=== PATIENT | female | born 1985 | race Caucasian/White ===

== ENCOUNTER → 2016-05-10 | Outpatient (REF) | payer BC | LOC: M LAB REF 13:59 | PROVIDERS: ATTEND Advanced Practice Midwife | DX: Z12.4 Encounter for screening for malignant neoplasm of cervix (principal); R87.810 Cervical high risk human papillomavirus (HPV) DNA test positive ==

== ENCOUNTER → 2016-08-03 | Outpatient (CLI) | payer BC ==
--- NOTE | 2016-08-03 08:49 | REP ---
RIGHT LOWER EXTREMITY DUPLEX VENOUS ULTRASOUND: HISTORY: Post laser ablation, question DVT. FINDINGS: The deep veins are anechoic and fully compressible from the groin to the popliteal fossa in the right lower extremity on two-dimensional scanning. Color flow imaging is homogeneous in the deep venous system. Spectral Doppler interrogation demonstrates intact respiratory variation in flow and normal manual augmentation of flow. There is no evidence of DVT. There is occlusive thrombosis, however, of the greater saphenous vein extending distally from 4.5 cm from the saphenofemoral junction into the distal thigh. IMPRESSION: Occlusive thrombosis of the greater saphenous vein. No evidence of deep vein thrombosis in the right lower extremity. Signed by Curtis Juan MD 08/03/2016 10:20 A
== END ==
LOC: M RAD 07:00
PROVIDERS: ATTEND Surgery
DX: Z98.890 Other specified postprocedural states (principal); I82.811 Embolism and thrombosis of superficial veins of right lower extremity

== ENCOUNTER → 2016-12-19 | Outpatient (CLI) | payer BC ==
[2016-12-19 08:36] LABS: ALBUMIN 3.6 GM/DL (3.2-5.2); ALBUMIN/GLOBULIN RATIO 1.16 (1.00-1.93); ALKALINE PHOSPHATASE 36 U/L (45-117); ALT/SGPT 26 U/L (12-78); ANION GAP 4 MEQ/L (8-16); AST/SGOT 20 U/L (15-37); BILIRUBIN,TOTAL 0.3 MG/DL (0.2-1.0); BLOOD UREA NITROGEN 12 MG/DL (7-18); CALCIUM LEVEL 8.5 MG/DL (8.5-10.1); CARBON DIOXIDE LEVEL 32 MEQ/L (21-32); CHLORIDE LEVEL 104 MEQ/L (98-107); CHOLESTEROL LEVEL 158 MG/DL (<200); CREATININE FOR GFR 0.77 MG/DL (0.55-1.02); GLOMERULAR FILTRATION RATE > 60.0 (>60); GLUCOSE, FASTING 81 MG/DL (70-105); POTASSIUM SERUM 4.6 MEQ/L (3.5-5.1); SODIUM LEVEL 140 MEQ/L (136-145); TOTAL PROTEIN 6.7 GM/DL (6.4-8.2); TRIGLYCERIDES LEVEL 32 MG/DL (<150)
== END ==
LOC: M LAB 07:21
PROVIDERS: ATTEND Physician Assistant
DX: E03.9 Hypothyroidism, unspecified (principal); E78.2 Mixed hyperlipidemia

== ENCOUNTER → 2017-02-08 | Outpatient (CLI) | payer BC ==
--- NOTE | 2017-02-08 16:03 | REP ---
Clinical: Pain. Technique: Real time bella scale and color Doppler evaluation using linear high frequency transducer. Findings: Ultrasound examination of the right upper extremity deep venous structures including jugular, subclavian, axillary, brachial, basilic, and cephalic veins demonstrates normal flow characteristics and no evidence for acute thrombus. Incidental note is made of a solitary infraclavicular lymph node measuring 0.6 x 1.7 x 3.5 cm. Overlying the biceps muscle in the region of maximal tenderness, subcutaneous and intramuscular edema is appreciated. The muscular fascicles appear relatively normal and no obvious full-thickness tear or injury is appreciated. Impression: 1. No evidence for deep venous thrombosis. 2. Soft tissue edema. No obvious full thickness muscular or tendinous tear noted. Based on symptoms, MRI may be of value for more definitive evaluation. 3. Solitary infraclavicular lymph node nonspecific in appearance. Signed by Victorino Olsen MD 02/08/2017 03:54 P
[2017-02-08 16:24] LABS: ANION GAP 7 MEQ/L (8-16); BLOOD UREA NITROGEN 10 MG/DL (7-18); CALCIUM LEVEL 9.1 MG/DL (8.5-10.1); CARBON DIOXIDE LEVEL 30 MEQ/L (21-32); CHLORIDE LEVEL 102 MEQ/L (98-107); CREATININE FOR GFR 0.74 MG/DL (0.55-1.02); GLOMERULAR FILTRATION RATE > 60.0 (>60); GLUCOSE, FASTING 73 MG/DL (70-105); SODIUM LEVEL 139 MEQ/L (136-145)
== END ==
LOC: M LAB 14:49
PROVIDERS: ATTEND Physician Assistant Medical
DX: M62.82 Rhabdomyolysis (principal)

== ENCOUNTER → 2017-02-16 | Outpatient (CLI) | payer BC ==
[2017-02-16 13:58] LABS: ANION GAP 7 MEQ/L (8-16); BLOOD UREA NITROGEN 14 MG/DL (7-18); CALCIUM LEVEL 8.7 MG/DL (8.5-10.1); CARBON DIOXIDE LEVEL 29 MEQ/L (21-32); CHLORIDE LEVEL 103 MEQ/L (98-107); CREATININE FOR GFR 0.61 MG/DL (0.55-1.02); GLOMERULAR FILTRATION RATE > 60.0 (>60); GLUCOSE, FASTING 99 MG/DL (70-105); POTASSIUM SERUM 4.2 MEQ/L (3.5-5.1); SODIUM LEVEL 139 MEQ/L (136-145)
== END ==
LOC: M LAB 12:57
PROVIDERS: ATTEND Physician Assistant Medical
DX: M62.82 Rhabdomyolysis (principal)

== ENCOUNTER → 2017-06-07 | Outpatient (REF) | payer BC ==
[2017-06-07 16:44] LABS: BASO % 0.2 % (0.0-1.0); EOS # 0.1 10^3/uL (0.0-0.50); EOS % 0.9 % (0.0-3.0); HEMATOCRIT 37.7 % (36.0-47.0); HEMOGLOBIN 12.6 g/dl (12.0-16.0); IMMATURE GRANULOCYTE % 0.4 % (0-3.0); LYMPH # 1.6 10^3/uL (1.5-4.5); MEAN CORPUSCULAR HEMOGLOBIN 30.5 pg (27.0-33.0); MEAN CORPUSCULAR HGB CONC 33.4 g/dl (32.0-36.5); MEAN CORPUSCULAR VOLUME 91.3 fl (80.0-96.0); MONO # 0.4 10^3/uL (0.0-0.8); MONO % 7.3 % (0.0-5.0); NEUTROPHILS # 3.3 10^3/uL (1.8-7.7); NEUTROPHILS % 61.2 % (36.0-66.0); PLATELET COUNT, AUTOMATED 228 10^3/uL (150-450); RED BLOOD COUNT 4.13 10^6/uL (4.00-5.40); RED CELL DISTRIBUTION WIDTH 11.9 % (11.5-14.5); WHITE BLOOD COUNT 5.4 10^3/uL (4.0-10.0)
[2017-06-07 17:21] LABS: ALBUMIN 3.9 GM/DL (3.2-5.2); ALBUMIN/GLOBULIN RATIO 1.22 (1.00-1.93); ALKALINE PHOSPHATASE 39 U/L (45-117); ALT/SGPT 23 U/L (12-78); ANION GAP 5 MEQ/L (8-16); AST/SGOT 28 U/L (7-37); BILIRUBIN,TOTAL 0.3 MG/DL (0.2-1.0); BLOOD UREA NITROGEN 10 MG/DL (7-18); CALCIUM LEVEL 8.5 MG/DL (8.5-10.1); CARBON DIOXIDE LEVEL 31 MEQ/L (21-32); CHLORIDE LEVEL 104 MEQ/L (98-107); CPK CREATINE PHOSPHOKINASE 542 U/L (26-192); CREATININE FOR GFR 0.75 MG/DL (0.55-1.30); GLOMERULAR FILTRATION RATE > 60.0 (>60); GLUCOSE, FASTING 74 MG/DL (70-100); POTASSIUM SERUM 3.8 MEQ/L (3.5-5.1); SODIUM LEVEL 140 MEQ/L (136-145); TOTAL PROTEIN 7.1 GM/DL (6.4-8.2)
== END ==
LOC: M LAB REF 16:26
DX: M25.50 Pain in unspecified joint (principal)
CPT/HCPCS: 82550

== ENCOUNTER → 2017-07-22 | Outpatient (REF) | payer BC ==
[2017-07-26 14:13] LABS: HPV HYBRID CAPTURE II Positive (Negative)
== END ==
LOC: M LAB REF 13:43
DX: Z12.4 Encounter for screening for malignant neoplasm of cervix (principal)

== ENCOUNTER → 2017-07-26 | Outpatient (CLI) | payer BC ==
[2017-07-26 10:14] LABS: CORTISOL AM 10.8 UG/DL (4.3-22.4)
[2017-07-26 10:16] LABS: PROGESTERONE 0.5 NG/ML
[2017-07-26 10:18] LABS: LUTEINIZING HORMONE 5.7 mIU/mL
[2017-07-26 10:19] LABS: FOLLICLE STIMULATING HORMONE 6.7 mIU/mL
[2017-07-29 00:08] LABS: TESTOSTERONE FREE (DIRECT) 2.3 pg/mL (0.0-4.2)
[2017-07-29 00:08] LABS: ESTROGENS TOTAL 130 pg/mL (.)
== END ==
LOC: M LAB 08:11
DX: L68.0 Hirsutism (principal)
CPT/HCPCS: 83001

== ENCOUNTER → 2017-09-11 | Outpatient (CLI) | payer BC ==
[2017-09-11 08:10] LABS: BASO % 0.5 % (0.0-1.0); EOS # 0.2 10^3/uL (0.0-0.50); HEMATOCRIT 36.5 % (36.0-47.0); HEMOGLOBIN 12.4 g/dl (12.0-15.5); IMMATURE GRANULOCYTE % 0.5 % (0-3.0); LYMPH # 1.2 10^3/uL (1.5-4.5); LYMPH % 28.1 % (24.0-44.0); MEAN CORPUSCULAR HEMOGLOBIN 30.6 pg (27.0-33.0); MEAN CORPUSCULAR VOLUME 90.1 fl (80.0-96.0); MONO # 0.4 10^3/uL (0.0-0.8); NEUTROPHILS # 2.5 10^3/uL (1.8-7.7); NEUTROPHILS % 57.9 % (36.0-66.0); PLATELET COUNT, AUTOMATED 193 10^3/uL (150-450); RED BLOOD COUNT 4.05 10^6/uL (4.00-5.40); RED CELL DISTRIBUTION WIDTH 12.3 % (11.5-14.5); WHITE BLOOD COUNT 4.4 10^3/uL (4.0-10.0)
[2017-09-11 08:34] LABS: ALBUMIN 3.7 GM/DL (3.2-5.2); ALBUMIN/GLOBULIN RATIO 1.16 (1.00-1.93); ALKALINE PHOSPHATASE 40 U/L (45-117); ALT/SGPT 22 U/L (12-78); ANION GAP 6 MEQ/L (8-16); AST/SGOT 17 U/L (7-37); BILIRUBIN,TOTAL 0.4 MG/DL (0.2-1.0); BLOOD UREA NITROGEN 12 MG/DL (7-18); C REACTIVE PROTEIN QUANTITATIV < 0.30 MG/DL (0.00-0.30); CALCIUM LEVEL 8.1 MG/DL (8.5-10.1); CARBON DIOXIDE LEVEL 28 MEQ/L (21-32); CHLORIDE LEVEL 106 MEQ/L (98-107); CPK CREATINE PHOSPHOKINASE 192 U/L (26-192); CREATININE FOR GFR 0.74 MG/DL (0.55-1.30); GLOMERULAR FILTRATION RATE > 60.0 (>60); GLUCOSE, FASTING 84 MG/DL (70-100); POTASSIUM SERUM 4.2 MEQ/L (3.5-5.1); RHEUMATOID FACTOR QUANT < 10.0 IU/ML (<15.0); SODIUM LEVEL 140 MEQ/L (136-145); TOTAL PROTEIN 6.9 GM/DL (6.4-8.2); URIC ACID 3.9 MG/DL (2.6-6.0)
[2017-09-11 09:09] LABS: ERYTHROCYTE SEDIMENTATION RATE 8 mm/hr (0-20)
[2017-09-13 00:09] LABS: ANA (HEP2) Negative (.)
[2017-09-13 00:09] LABS: CYCLIC CITRULLINATED PEPTIDE 7 units (0-19)
== END ==
LOC: M LAB 07:12
DX: M35.01 Sjogren syndrome with keratoconjunctivitis (principal)
CPT/HCPCS: 82550

== ENCOUNTER → 2017-09-18 | Outpatient (CLI) | payer BC | LOC: M RAD 12:23 | DX: S60.052A Contusion of left little finger without damage to nail, initial encounter (principal); X58.XXXA Exposure to other specified factors, initial encounter; Y92.89 Other specified places as the place of occurrence of the external cause; Y99.9 Unspecified external cause status; Y93.9 Activity, unspecified | CPT/HCPCS: 73140 ==

== ENCOUNTER → 2018-04-10 | Outpatient (CLI) | payer BC ==
[2018-04-10 09:41] LABS: FREE T4 0.85 NG/DL (0.76-1.46); THYROID STIMULATING HORMONE 3.1 uIU/ML (0.358-3.740)
[2018-04-10 09:53] LABS: TOTAL 25(OH) VITAMIN D 37.7 NG/ML (30.0-100.0)
== END ==
LOC: M LAB 08:22
PROVIDERS: ATTEND Family Medicine
DX: E03.9 Hypothyroidism, unspecified (principal)

== ENCOUNTER → 2018-06-21 | Outpatient (CLI) | payer BC ==
--- NOTE | 2018-06-21 13:16 | REP ---
Clinical: Left first digit injury Technique: AP, lateral, bilateral oblique views left hand . Findings: The osseous structures and joint spaces are intact and normal. There is no evidence for acute fracture or dislocation. Surrounding soft tissues are unremarkable. No subcutaneous emphysema or radiodense foreign body. Impression: Normal left hand series. No acute fracture or dislocation. Electronically Signed by Victorino Olsen MD 06/21/2018 01:07 P
== END ==
LOC: M RAD 12:37
PROVIDERS: ATTEND Physician Assistant Medical
DX: S69.82XA Other specified injuries of left wrist, hand and finger(s), initial encounter (principal); X58.XXXA Exposure to other specified factors, initial encounter; Y92.89 Other specified places as the place of occurrence of the external cause

== ENCOUNTER → 2018-06-30 | Outpatient (CLI) | payer OTHER, BC ==
--- NOTE | 2018-07-01 14:13 | REP ---
MRI left hand and thumb without contrast: History: Hyperextension injury, First MCP joint. Comparison radiographs June 21, 2018. Comparison radiographs are from June 21, 2018. MR technique. The study was accomplished in two settings with additional views at my request. Initially a MRI study of the left hand was performed as ordered. A dedicated left thumb MRI study was acquired with the after the initial images. Axial, coronal, and sagittal imaging planes utilized. T1 proton density T2-weighted scans are included. MRI findings: Cortical and medullary bone signal intensity is normal. There is no evidence of fracture. There is a small quantity of joint fluid about the first MCP joint. There is complete disruption of the ulnar collateral ligament at the first MCP joint from its distal attachment. The proximal portion of the a bolused ulnar collateral ligament is flipped superficial to the adductor pollicis aponeurosis. This is consistent with the Stener lesion. Extensor and flexor tendons are unremarkable. The radial collateral ligament appears intact. There is some adjacent edema. Impression: Complete disruption of the ulnar collateral ligament at the first MCP joint without evidence of fracture. The proximal portion of the a avulsed ulnar collateral ligament is flipped superficial to the the adductor pollicis aponeurosis consistent with a Stener lesion. Electronically Signed by Curtis Juan MD 07/01/2018 02:05 P
== END ==
LOC: M RAD 18:24
PROVIDERS: ATTEND Physician Assistant
DX: S63.042A Subluxation of carpometacarpal joint of left thumb, initial encounter (principal); Y92.89 Other specified places as the place of occurrence of the external cause; Y93.9 Activity, unspecified; Y99.9 Unspecified external cause status; X58.XXXA Exposure to other specified factors, initial encounter

== ENCOUNTER → 2018-10-03 | Outpatient (REF) | payer BC ==
[2018-10-08 14:07] LABS: HPV HYBRID CAPTURE II Positive (Negative)
== END ==
LOC: M LAB REF 16:19
PROVIDERS: ATTEND Advanced Practice Midwife
DX: Z12.4 Encounter for screening for malignant neoplasm of cervix (principal); R87.612 Low grade squamous intraepithelial lesion on cytologic smear of cervix (LGSIL)
CPT/HCPCS: 87624; G0123

== ENCOUNTER → 2018-10-09 | Outpatient (CLI) | payer BC ==
[2018-10-09 11:51] LABS: FREE T4 1.08 NG/DL (0.76-1.46); THYROID STIMULATING HORMONE 1.57 uIU/ML (0.358-3.740)
[2018-10-11 00:06] LABS: Lyme Disease IgG/IgM Antibodie <0.91 ISR (0.00-0.90); Lyme Disease IgM Ab Quantitati <0.80 index (0.00-0.79)
== END ==
LOC: M LAB 10:38
PROVIDERS: ATTEND Physician Assistant
DX: Z00.01 Encounter for general adult medical examination with abnormal findings (principal); R53.83 Other fatigue

== ENCOUNTER → 2018-11-17 | Outpatient (REF) | payer BC | LOC: M LAB REF 13:03 | PROVIDERS: ATTEND Obstetrics & Gynecology | DX: R87.612 Low grade squamous intraepithelial lesion on cytologic smear of cervix (LGSIL) (principal) ==

== ENCOUNTER → 2019-02-11 | Outpatient (CLI) | payer BC ==
--- NOTE | 2019-02-11 11:24 | REP ---
T-spine series: Four views. History: Pain in the thoracic spine. Pain around the T7-8 region, slightly to the right. Findings: There is straightening of the usual thoracic kyphosis. Thoracic vertebral body heights are preserved. Disc spaces are maintained. Pedicles and posterior elements are intact. No paravertebral soft-tissue mass or swelling is seen. Visualized posterior ribs and the visualized lung aguiar are unremarkable. Swimmer's lateral view shows no additional abnormality. Impression: Straightening otherwise negative thoracic spine radiographs. Electronically Signed by Curtis Juan MD 02/11/2019 11:15 A
== END ==
LOC: M RAD 10:31
PROVIDERS: ATTEND Family Medicine
DX: M54.6 Pain in thoracic spine (principal)

== ENCOUNTER → 2019-11-11 | Outpatient (CLI) | payer BC ==
[2019-11-11 08:52] LABS: BASO % 0.6 % (0.0-1.0); EOS # 0.1 10^3/uL (0.0-0.5); HEMATOCRIT 36.9 % (36.0-47.0); HEMOGLOBIN 12.2 g/dl (12.0-15.5); LYMPH # 1.2 10^3/uL (1.5-5.0); LYMPH % 22.9 % (24.0-44.0); MEAN CORPUSCULAR HEMOGLOBIN 30.5 pg (27.0-33.0); MEAN CORPUSCULAR HGB CONC 33.1 g/dl (32.0-36.5); MEAN CORPUSCULAR VOLUME 92.3 fl (80.0-96.0); MONO # 0.3 10^3/uL (0.0-0.8); NEUTROPHILS # 3.4 10^3/uL (1.5-8.5); NEUTROPHILS % 68.1 % (36.0-66.0); PLATELET COUNT, AUTOMATED 191 10^3/uL (150-450)
[2019-11-11 10:13] LABS: ALBUMIN 3.7 GM/DL (3.2-5.2); ALT/SGPT 17 U/L (12-78); BILIRUBIN,TOTAL 0.5 MG/DL (0.2-1.0); BLOOD UREA NITROGEN 12 MG/DL (7-18); CALCIUM LEVEL 8.8 MG/DL (8.5-10.1); CARBON DIOXIDE LEVEL 30 MEQ/L (21-32); CHLORIDE LEVEL 107 MEQ/L (98-107); CHOLESTEROL LEVEL 163 MG/DL (<200); CHOLESTEROL RISK RATIO 2.507 (<5); CREATININE FOR GFR 0.88 MG/DL (0.55-1.30); FREE T4 0.91 NG/DL (0.76-1.46); GLOMERULAR FILTRATION RATE > 60.0 (>60); GLUCOSE, FASTING 85 MG/DL (70-100); HDL CHOLESTEROL 65 MG/DL (>40); LDL CHOLESTEROL 87 MG/DL (<100); NON-HDL-C 98 MG/DL; POTASSIUM SERUM 4.3 MEQ/L (3.5-5.1); SODIUM LEVEL 140 MEQ/L (136-145); TOTAL PROTEIN 6.8 GM/DL (6.4-8.2); TRIGLYCERIDES LEVEL 56 MG/DL (<150)
== END ==
LOC: M LAB 07:28
PROVIDERS: ATTEND Family Medicine
DX: Z13.0 Encounter for screening for diseases of the blood and blood-forming organs and certain disorders involving the immune mechanism (principal)

== ENCOUNTER → 2019-12-21 | Outpatient (REF) | payer BC | LOC: M SFHCWAGY 19:14 | PROVIDERS: ATTEND Advanced Practice Midwife | DX: Z12.4 Encounter for screening for malignant neoplasm of cervix (principal); R87.610 Atypical squamous cells of undetermined significance on cytologic smear of cervix (ASC-US) | CPT/HCPCS: 87624; G0123 ==

== ENCOUNTER → 2020-01-22 | Outpatient (CLI) | payer BC ==
[2020-01-22 09:10] LABS: FREE T4 0.89 NG/DL (0.76-1.46); THYROID STIMULATING HORMONE 3.32 uIU/ML (0.358-3.740)
== END ==
LOC: M LAB 07:14
PROVIDERS: ATTEND Family Medicine
DX: E03.9 Hypothyroidism, unspecified (principal)

== ENCOUNTER → 2020-02-23 | Outpatient (REF) | LOC: M EMP 10:12 | PROVIDERS: ATTEND Family Medicine | DX: Z20.828 Contact with and (suspected) exposure to other viral communicable diseases (principal) ==

== ENCOUNTER → 2020-04-11 | Outpatient (CLI) | payer BC ==
--- NOTE | 2020-04-12 08:06 | REP ---
INDICATION: PAIN IN THORACIC SPINE. History of exercise injury 3 years ago. COMPARISON: Comparison radiographs February 11, 2019.. TECHNIQUE: Sagittal and axial T1 and T2-weighted scans are acquired in the usual fashion with and without fat saturation. Sequences include spin echo, turbo spin-echo, and STIR imaging sequences. FINDINGS: Thoracic vertebral body heights are preserved. Alignment is normal. Cortical and medullary bone signal intensity are normal. There assay cord is normal in course, caliber, and signal intensity on T1 and T2 weighted scans. There is a small hemangioma in the T1 vertebral body. There is a small central focal disc protrusion at the C7-T1 disc level effacing the ventral subarachnoid space but not visibly contacting the cord. There is a small focal disc protrusion on the right posteriorly at the T11-12 level effacing the ventral subarachnoid space without cord compression. There is minimal disc narrowing at T11-12. No other evidence of degenerative disc disease or disc protrusion is seen. No intraspinal fluid collection or mass lesion is visible. Facet joints are normally aligned. No neural foraminal lesion is appreciated. The visualized posterior ribs are unremarkable. No extra-spinal soft tissue mass is appreciated. IMPRESSION: Small right posterior focal disc protrusion T11. Small central focal disc protrusion C7-T1. Otherwise negative. <Electronically signed by Trevor Juan > 04/12/20 8601
== END ==
LOC: M RAD 16:17
PROVIDERS: ATTEND Family Medicine
DX: M51.24 Other intervertebral disc displacement, thoracic region (principal); M50.23 Other cervical disc displacement, cervicothoracic region

== ENCOUNTER → 2020-04-12 | Outpatient (CLI) | payer BC ==
[2020-04-12 16:00] LABS: FREE T4 0.9 NG/DL (0.76-1.46); THYROID STIMULATING HORMONE 3.93 uIU/ML (0.358-3.740)
== END ==
LOC: M LAB 14:37
PROVIDERS: ATTEND Family Medicine
DX: E03.9 Hypothyroidism, unspecified (principal)

== ENCOUNTER → 2020-07-19 | Outpatient (CLI) | payer BC ==
[2020-07-19 09:43] LABS: FREE T4 0.94 NG/DL (0.76-1.46); THYROID STIMULATING HORMONE 3.82 uIU/ML (0.358-3.740)
== END ==
LOC: M LAB 08:12
PROVIDERS: ATTEND Family Medicine
DX: E03.9 Hypothyroidism, unspecified (principal)

== ENCOUNTER → 2020-09-22 | Outpatient (CLI) | payer BC ==
[2020-09-22 15:42] LABS: FREE T4 0.88 NG/DL (0.76-1.46); THYROID STIMULATING HORMONE 2.22 uIU/ML (0.358-3.740)
== END ==
LOC: M LAB 13:54
PROVIDERS: ATTEND Family Medicine
DX: E03.9 Hypothyroidism, unspecified (principal)

== ENCOUNTER → 2020-11-22 | Outpatient (CLI) | payer BC ==
[2020-11-22 19:28] LABS: BASO % 0.6 % (0.0-1.0); EOS # 0.2 10^3/uL (0.0-0.5); EOS % 2.7 % (0.0-3.0); HEMATOCRIT 40.5 % (36.0-47.0); HEMOGLOBIN 13.2 g/dl (12.0-15.5); LYMPH # 1.4 10^3/uL (1.5-5.0); LYMPH % 20.1 % (24.0-44.0); MEAN CORPUSCULAR HGB CONC 32.6 g/dl (32.0-36.5); MONO # 0.4 10^3/uL (0.0-0.8); MONO % 5.9 % (2.0-8.0); NEUTROPHILS # 4.9 10^3/uL (1.5-8.5); NEUTROPHILS % 70.4 % (36.0-66.0); PLATELET COUNT, AUTOMATED 248 10^3/uL (150-450); WHITE BLOOD COUNT 6.9 10^3/uL (4.0-10.0)
[2020-11-22 20:06] LABS: ALT/SGPT 23 U/L (12-78); BILIRUBIN,TOTAL 0.3 MG/DL (0.2-1.0); BLOOD UREA NITROGEN 14 MG/DL (7-18); CALCIUM LEVEL 8.9 MG/DL (8.5-10.1); CARBON DIOXIDE LEVEL 30 MEQ/L (21-32); CHLORIDE LEVEL 105 MEQ/L (98-107); CHOLESTEROL LEVEL 214 MG/DL (<200); CHOLESTEROL RISK RATIO 2.708 (<5); CREATININE FOR GFR 0.83 MG/DL (0.55-1.30); FREE T4 0.95 NG/DL (0.76-1.46); GLOMERULAR FILTRATION RATE > 60.0 (>60); GLUCOSE, FASTING 81 MG/DL (70-100); HDL CHOLESTEROL 79 MG/DL (>40); LDL CHOLESTEROL 120 MG/DL (<100); NON-HDL-C 135 MG/DL; SODIUM LEVEL 140 MEQ/L (136-145); TOTAL PROTEIN 7.4 GM/DL (6.4-8.2); TRIGLYCERIDES LEVEL 73 MG/DL (<150)
[2020-11-22 20:08] LABS: TOTAL 25(OH) VITAMIN D 29.4 NG/ML (30.0-100.0)
== END ==
LOC: M LAB 17:56
PROVIDERS: ATTEND Family Medicine
DX: E03.9 Hypothyroidism, unspecified (principal); Z13.29 Encounter for screening for other suspected endocrine disorder; Z13.0 Encounter for screening for diseases of the blood and blood-forming organs and certain disorders involving the immune mechanism; Z13.220 Encounter for screening for lipoid disorders

== ENCOUNTER → 2021-01-24 | Outpatient (REF) | payer BC | LOC: M SFHCWAGY 19:05 | PROVIDERS: ATTEND Advanced Practice Midwife | DX: Z12.4 Encounter for screening for malignant neoplasm of cervix (principal) | CPT/HCPCS: 87624; G0123 ==

== ENCOUNTER → 2021-02-01 | Outpatient (CLI) | payer BC ==
[~2021-02-01] MED LIST: LEVO75TA4 PO; LIDOCAINE 1% MDV 20ML VIAL As Ordered ONE; QUERPOW2 XX; VITA-243 PO; VITAMIN D PO; VITMTA PO
--- NOTE | 2021-02-01 12:04 | REP ---
INDICATION: LOCALIZED ENLARGED LYMPH NODE. COMPARISON: None. TECHNIQUE: Real-time sonographic evaluation of inferior right neck soft tissues performed. FINDINGS: At the site of a dominant palpable lump just below the right clavicle there is an oval solid mass which demonstrates hyperemia with Doppler evaluation. It measures 5.0 x 2.1 x 4.0 cm. A smaller soft tissue mass seen in the right supraclavicular soft tissues measuring 1.9 x 1.2 x 2.4 cm. IMPRESSION: Soft tissue mass in the right infraclavicular region as discussed above likely represents adenopathy. A smaller enlarged lymph node is seen in the right supraclavicular region. Recommend ultrasound-guided biopsy. <Electronically signed by Wisam Guidry > 02/01/21 1200
[2021-02-01 15:09] VITALS: BP 131/75
--- NOTE | 2021-02-01 17:17 | REP ---
INDICATION: RIGHT ENLARGED LYMPH NODE. COMPARISON: None. TECHNIQUE: The procedure was performed under the direct supervision of Dr. Guidry. Patient has a history of an oval solid mass just below the right clavicle measuring 5 x 2.1 x 4 cm seen on a previous ultrasound performed earlier today. The risks and benefits of the procedure were explained to the patient and informed consent was obtained. The right subclavicular mass was localized using ultrasound guidance. The skin was prepped and draped in a sterile fashion. 4 mL of 1% lidocaine was used as a local anesthetic. Using ultrasound guidance a 19/20 gauge coaxial needle biopsy system was inserted and advanced into the mass. Eight core biopsy samples were obtained and sent to the lab. The patient tolerated the procedure well and there were no immediate complications. After the appropriate amount to monitor convalescence the patient was discharged from the department. FINDINGS: None IMPRESSION: Ultrasound guidance for right subclavicular mass biopsy. <Electronically signed by Lionel Trujillo > 02/01/21 6225 <Electronically signed by Wisam Guidry > 02/01/21 2395
== END ==
LOC: M IRPRO 11:10 → M LAB 11:10
PROVIDERS: ATTEND Family Medicine
DX: R59.0 Localized enlarged lymph nodes (principal)

== ENCOUNTER → 2021-02-03 | Outpatient (CLI) | payer BC ==
[~2021-02-03] MED LIST changes: -LIDOCAINE 1% MDV 20ML VIAL As Ordered ONE
[2021-02-03 08:52] LABS: FREE T4 1.16 NG/DL (0.76-1.46); THYROID STIMULATING HORMONE 2.9 uIU/ML (0.358-3.740)
== END ==
LOC: M LAB 07:13
PROVIDERS: ATTEND Family Medicine
DX: E03.9 Hypothyroidism, unspecified (principal)

== ENCOUNTER → 2021-02-06 | Outpatient (CLI) | payer BC ==
[2021-02-06 17:30] LABS: BASO % 0.1 % (0.0-1.0); EOS % 0.1 % (0.0-3.0); HEMATOCRIT 39.9 % (36.0-47.0); HEMOGLOBIN 13.2 g/dl (12.0-15.5); LYMPH % 13.4 % (24.0-44.0); MEAN CORPUSCULAR HEMOGLOBIN 30.5 pg (27.0-33.0); MEAN CORPUSCULAR HGB CONC 33.1 g/dl (32.0-36.5); MEAN CORPUSCULAR VOLUME 92.1 fl (80.0-96.0); MONO # 0.3 10^3/uL (0.0-0.8); MONO % 3.5 % (2.0-8.0); NEUTROPHILS # 6.3 10^3/uL (1.5-8.5); NEUTROPHILS % 82.5 % (36.0-66.0); PLATELET COUNT, AUTOMATED 260 10^3/uL (150-450); RED BLOOD COUNT 4.33 10^6/uL (4.00-5.40); WHITE BLOOD COUNT 7.6 10^3/uL (4.0-10.0)
[2021-02-06 18:13] LABS: C REACTIVE PROTEIN QUANTITATIV < 0.30 MG/DL (0.00-0.30); LDH LACTATE DEHYDROGENASE 187 U/L (84-246); RHEUMATOID FACTOR QUANT < 10.0 IU/ML (<15.0); THYROID STIMULATING HORMONE 0.968 uIU/ML (0.358-3.740)
[2021-02-06 18:34] LABS: ERYTHROCYTE SEDIMENTATION RATE 7 mm/hr (0-20)
== END ==
LOC: M LAB 15:47
PROVIDERS: ATTEND Family Medicine
DX: R59.0 Localized enlarged lymph nodes (principal)

== ENCOUNTER 2021-02-27 18:28 | Emergency (ER) | payer BC ==
[~2021-02-27] VITALS: Ht 167.6 cm; Wt 66.1 kg
--- OUTSIDE RECORDS SUMMARY | 2021-02-27 18:35 | CCD | Continuity of Care Document ---
Author Author Adriana FORD Organization Unknown Address [address] [place] [address] Phone [phone] Care Team Providers Care Emergency Planning And Response Manager Name Role Phone Aviva Ford D.O. AUT[facility] [phone] [facility] [phone] Victorino Holder M.D. [facility] [phone] Michael Sanchez MD [facility] [phone] [facility] Rheumatology AUTM [phone] Marshall Barajas MD AUTM [phone] Problems Active Problems Provider Date Hirsutism KAR Sparks Onset: 07/25/2017 Hypothyroidism KAR Sparks Onset: 07/25/2017 Rhabdomyolysis KAR Sparks Onset: 07/25/2017 Social History Type Date Description Comments Sex Unknown ETOH Use Occasionally consumes alcohol Tobacco Use Start: Unknown Patient has never smoked Recreational Drug Use Denies Drug Use Smoking Status Reviewed: 02/06/21 Patient has never smoked Exercise Type/Frequency Exercises regularly 3-5 times a wek Sun Exposure Uses sunscreen Seat Belt/Car Seat Always uses seat belt Allergies and adverse reactions Active Allergies Criticality Reaction | Severity Comments Date NKDA Unable to assess criticality 07/23/2017 Peanut Unable to assess criticality 07/23/2017 Medications Active Medications SIG Qnty Indications Ordering Provide r Date Prednisone 10mg Tablets 4 tablets daily for 5 days then 3 tablets for 3 days then 2 tablets for 2 days then 1 tab daily for 2 days, then stop qs Aviva Ford D.O. 02/09/2021 Amoxicillin/Clavulanate Potassium 875-125mg Tablets 1 by mouth twice a day x 10 days 20tabs R59.0 Ignacio MccainORd 02/06/2021 Ultrasound Guided Biopsy Of Right Enlarged Lymph Nodes Dx: R59 1-6units R59.0 Ignacio MccainORd 02/01/2021 Levothyroxine Sodium 75mcg Tablets take one tablet by mouth daily 90tabs E03.9 Miriam Mccain.ORd 12/01/2020 Naproxen 500mg Tablets take one tab with food twice a day 60tabs Ignacio MccainORd 02/23 Vitamin D3 Ultra Strength 5000Unit Capsules 1 by mouth every day 90caps Miriam Mccain.O. 04/09/2018 Multivitamin Adult Tablets 1 by mouth every day Unknown Immunizations Description No Information Available Vital Signs Date Vital Result Comment 02/14/2021 11:48am BP Systolic 110 mmHg BP Diastolic 62 mmHg Height 65.10 inches 5'5.10" Weight 138.00 lb BMI (Body Mass Index) 22.9 kg/m2 Heart Rate 55 /min Respiratory Rate 16 /min Body Temperature 97.8 F O2 % BldC Oximetry 99 % [place] Body Weight 125 lb 02/06/2021 2:58pm BP Systolic 110 mmHg BP Diastolic 64 mmHg Height 65.10 inches 5'5.10" Weight 140.12 lb BMI (Body Mass Index) 23.2 kg/m2 Heart Rate 62 /min Respiratory Rate 14 /min Body Temperature 98.5 F O2 % BldC Oximetry 98 % [place] Body Weight 125 lb Results Test Acquired Date Facility Test Result H/L Range Note CBC With Differential 02/06/[address] [address] [phone] White Blood Count 7.6 10 Normal 4.0-10.0 Red Blood Count 4.33 10 Normal 4.00-5.40 Hemoglobin 13.2 g/dL Normal 12.0-15.5 Hematocrit 39.9 % Normal 36.0-47.0 Mean Corpuscular Volume 92.1 fl Normal 80.0-96.0 Mean Corpuscular Hemoglobin 30.5 pg Normal 27.0-33.0 Mean Corpuscular HGB Conc 33.1 g/dL Normal 32.0-36.5 Red Cell Distribution Width 11.9 % Normal 11.5-14.5 Platelet Count, Automated 260 10 Normal 150-450 Neutrophils % 82.5 % High 36.0-66.0 Lymph % 13.4 % Low 24.0-44.0 Rice % 3.5 % Normal 2.0-8.0 Eos % 0.1 % Normal 0.0-3.0 Baso % 0.1 % Normal 0.0-1.0 Immature Granulocyte % 0.4 % Normal 0-3.0 Nucleated Red Blood Cell % 0.0 % Normal 0-0 Neutrophils # 6.3 10 Normal 1.5-8.5 Lymph # 1.0 10 Low 1.5-5.0 Rice # 0.3 10 Normal 0.0-0.8 Eos # 0.0 10 Normal 0.0-0.5 Baso # 0.0 10 Normal 0.0-0.2 Laboratory test finding 02/06/[address] [address] [phone] C Reactive Protein Quantitativ < 0.30 mg/dL Normal 0.00-0.30 Erythrocyte Sedimentation Rate 7 mm/hr Normal 0-20 LDH Lactate Dehydrogenase 187 U/L Normal 84-246 Lyme Disease SCRN With Confirm 02/06/[address] [address] [phone] Lyme Disease IgG/IgM Antibodie <0.91 ISR Normal 0 .00-0.90 1 Lyme Disease IgM Ab Quantitati <0.80 index Normal 0.00-0.79 2 FT4&TSH Panel 02/06/2021 [facility] [address] [place] [address] [phone] Thyroid Stimulating Hormone 0.968 uIU/ML Normal 0. 358-3.740 Free T4 1.10 ng/dL Normal 0.76-1.46 Laboratory test finding 02/06/[address] [address] [phone] Rheumatoid Factor Quant < 10.0 IU/mL Normal <15.0 Cyclic Citrullinated Peptide 6 units Normal 0-19 3 Antinuclear Antibodies 02/06/[address] [address] [phone] Antinuclear Antibodies Direct Positive Abnormal Ne gative Anti Double Strand-Dna AB 3 IU/mL Normal 0-9 4 VP ANALYSIS Antibodies <0.2 AI Normal 0.0-0.9 Trujillo Antibodies <0.2 AI Normal 0.0-0.9 Sjogren's Anti SS-A 6.4 AI High 0.0-0.9 Sjogren's Anti SS-B 0.2 AI Normal 0.0-0.9 Grant Comment (SEE NOTE) Normal . 5 Laboratory test finding 02/06/[address] [address] [phone] CPK Creatine Phosphokinase 393 U/L High 26-19 2 FT4&TSH Panel 02/03/2021 [facility] [address] [place] [address] [phone] Thyroid Stimulating Hormone 2.900 uIU/ML Normal 0. 358-3.740 Free T4 1.16 ng/dL Normal 0.76-1.46 Laboratory test finding 02/01/2021 [facility] Outpatient T yousifing (Registration) [address] [place] [address] [phone] Pathology Request For Service (SEE NOTE) 6 FT4&TSH Panel 11/22/2020 [facility] [address] [place] [address] [phone] Thyroid Stimulating Hormone 4.350 uIU/ML High 0. 358-3.740 Free T4 0.95 ng/dL Normal 0.76-1.46 Comprehensive Metabolic Profil 11/22/[address] [address] [phone] Glucose, Fasting 81 mg/dL Normal 70-100 Blood Urea Nitrogen 14 mg/dL Normal 7-18 Creatinine For GFR 0.83 mg/dL Normal 0.55-1.30 Glomerular Filtration Rate > 60.0 Normal >60 7 Sodium Level 140 mEq/L Normal 136-145 Potassium Serum 4.0 mEq/L Normal 3.5-5.1 Chloride Level 105 mEq/L Normal 98-107 Carbon Dioxide Level 30 mEq/L Normal 21-32 Anion Gap 5 mEq/L Low 8-16 Calcium Level 8.9 mg/dL Normal 8.5-10.1 Ast/Sgot 15 U/L Normal 7-37 Alt/SGPT 23 U/L Normal 12-78 Alkaline Phosphatase 51 U/L Normal 45-117 Bilirubin,Total 0.3 mg/dL Normal 0.2-1.0 Total Protein 7.4 GM/DL Normal 6.4-8.2 Albumin 4.0 GM/DL Normal 3.2-5.2 Albumin/Globulin Ratio 1.2 Normal 1.2-2.2 CBC With Differential 11/22/[address] [id number] [phone] White Blood Count 6.9 10 Normal 4.0-10.0 Red Blood Count 4.40 10 Normal 4.00-5.40 Hemoglobin 13.2 g/dL Normal 12.0-15.5 Hematocrit 40.5 % Normal 36.0-47.0 Mean Corpuscular Volume 92.0 fl Normal 80.0-96.0 Mean Corpuscular Hemoglobin 30.0 pg Normal 27.0-33.0 Mean Corpuscular HGB Conc 32.6 g/dL Normal 32.0-36.5 Red Cell Distribution Width 12.2 % Normal 11.5-14.5 Platelet Count, Automated 248 10 Normal 150-450 Neutrophils % 70.4 % High 36.0-66.0 Lymph % 20.1 % Low 24.0-44.0 Rice % 5.9 % Normal 2.0-8.0 Eos % 2.7 % Normal 0.0-3.0 Baso % 0.6 % Normal 0.0-1.0 Immature Granulocyte % 0.3 % Normal 0-3.0 Nucleated Red Blood Cell % 0.0 % Normal 0-0 Neutrophils # 4.9 10 Normal 1.5-8.5 Lymph # 1.4 10 Low 1.5-5.0 Rice # 0.4 10 Normal 0.0-0.8 Eos # 0.2 10 Normal 0.0-0.5 Baso # 0.0 10 Normal 0.0-0.2 Lipid Panel 11/22/2020 [facility] [address] [place] [address] [phone] Triglycerides Level 73 mg/dL Normal <150 Cholesterol Level 214 mg/dL High <200 HDL Cholesterol 79 mg/dL Normal >40 LDL Cholesterol 120 mg/dL High <100 Non-HDL-C 135 mg/dL Normal Cholesterol Risk Ratio 2.708 Normal <5 Laboratory test finding 11/22/2020 [facility] [address] [place] [address] [phone] Total 25(Oh) Vitamin D 29.4 NG/ML Low 30.0-100. 0 FT4&TSH [facility] [address] [place] [address] [phone] Thyroid Stimulating Hormone 2.220 uIU/ML Normal 0. 358-3.740 Free T4 0.88 ng/dL Normal 0.76-1.46 1 Negative <0.91 Equivocal 0.91 - 1.09 Positive >1.09 2 Negative <0.80 Equivocal 0.80 - 1.19 Positive >1.19 . IgM levels may peak at 3-6 weeks post infection, then gradually decline. 3 Negative <20 Weak positive 20 - 39 Moderate positive 40 - 59 Strong positive >59 4 Negative <5 Equivocal 5 - 9 Positive >9 5 . Autoantibody Disease Association Condition Frequency -------- --------- Antinuclear Antibody, SLE, mixed connective Direct (GRANT-D) tissue diseases -------- --------- dsDNA SLE 40 - 60% -------- --------- Chromatin Drug induced SLE 90% SLE 48 - 97% -------- --------- SSA (Ro) SLE 25 - 35% Sjogren's Syndrome 40 - 70% Lupus 100% -------- --------- SSB (La) SLE 10% Sjogren's Syndrome 30% ------- --------- Sm (anti-Trujillo) SLE 15 - 30% ------- --------- VP ANALYSIS Mixed Connective Tissue Disease 95% (U1 nRNP, SLE 30 - 50% anti-ribonucleoprotein) Polymyositis and/or Dermatomyositis 20% -------- --------- Scl-70 (antiDNA Scleroderma (diffuse) 20 - 35% topoisomerase) Crest 13% -------- --------- Hanna-1 Polymyositis and/or Dermatomyositis 20 - 40% -------- --------- Centromere B Scleroderma - Crest variant 80% Performed at: - [facility] [address] [id number] [employer] Supervisor: Torie Bobo MD, Phone: [phone] Performed at: - [facility] [address] [id number] [employer] Supervisor: Vladimir Carrera MD, Phone: [phone] FINAL DIAGNOSIS Lymph node, right subclavicular, needle core biopsy: B-cell hyperplasia, and no evidence of lymphoma. Reactive lymphoid subsets noted in flow cytometry. No immunophenotypic evidence of non-Hodgkin lymphoma. Excisional biopsy could be helpful if lymphadenopathy persists. 02/08/2021813 CLINICAL DIAGNOSIS Right chest enlarged lymph node 02/02/20211336 GROSS DIAGNOSIS Received in formalin labeled "right subclavian lymph node biopsy" and consists of multiple barton-white needle core shaped fragments measuring 1.2 x 0.3 x 0.1 cm. in aggregate. All in one. Additional tissue received in RPMI. -SV 02/02/20211336 PRELIMINARY DIAGNOSIS 02/06/2021819 Signed ALEXANDER CHAVARRIA MD 02/03/2021 1230 (Prelim) Signed ALEXANDER CHAVARRIA MD 02/08/2021813 7 Units are mL/min/1.73 m2 Chronic Kidney Disease Staging per NKF: Stage I & II GFR >=60 Normal to Mildly Decreased Stage III GFR 30-59 Moderately Decreased Stage IV GFR 15-29 Severely Decreased Stage V GFR <15 Very Little GFR Left ESRD GFR <15 on [employer] Procedures Date Code Description Status 02/14/2021 40627 Office/Outpatient Established Lo w MDM 20-29 Min Completed 02/06/2021 88331 Office/Outpatient Established Mo d MDM 30-39 Min Completed 12/01/2020 58701 Preventive Visit Est 18-39 Yrs C ompleted 09/27/2020 23681 Office/Outpatient Established Mo d MDM 30-39 Min Completed Medical Devices Description No Information Available Encounters Type Date Location Provider Dx Diagnosis Office Visit 02/14/2021 11:40a [facility] Lauri Ford D.O. R59.0 Localized enlarged lymph nod es M35.00 Sjogren syndrome, unspecifie d M05.70 Rheu arthritis w rheu factor of [facility] w/o org/sys involv Office Visit 02/06/2021 3:00p [facility] Aviva Ford D.O. R59.0 Localized enlarged lymph nod es Office Visit 12/01/2020 3:00p [facility] Ignacio MccainO. Z00.00 Encntr for general adult med ical exam w/o abnormal findings M35.00 Sicca syndrome, unspecified M05.70 Rheu arthritis w rheu factor [facility] w/o org/sys involv E03.9 Hypothyroidism, unspecified Office Visit 09/27/2020 3:40p [facility] Aviva Ford D.O. 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 02/14/2021 M05.70 Rheumatoid arthritis with rheumatoid factor of unspecified site without organ or systems involvement Aviva Ford D.O. 02/06/2021 R59.0 Localized enlarged lymph nodes Kodi Ford D.O. 12/01/2020 Z00.00 Encounter for genera l adult medical examination without abnormal findings Aviva Ford D.O. 12/01/2020 M35.00 Sicca syndrome, unspecified Aviva Ford D.O. 12/01/2020 M05.70 Rheumatoid arthritis with rheumatoid factor of unspecified site without organ or systems involvement Aviva Ford D.O. 12/01/2020 E03.9 Hypothyroidism, unspecified Aviva Ford D.O. 09/27/2020 E03.9 Hypothyroidism, unspecified Ignacio MccainORd 09/27/2020 M51.24 Other intervertebral disc displa cement, thoracic region Aviva Ford D.O. 09/27/2020 Z79.899 Other buttermaker (current) drug t herapy Aviva Ford D.O. 09/27/2020 Z13.29 Encounter for screen ing for other suspected endocrine disorder Aviva Ford D.O. 09/27/2020 Z13.0 Encounter for screen ing for diseases of the blood and blood- forming organs and certain disorders involving the immune mechanism Aviva Ford D.O. 09/27/2020 Z13.220 Encounter for screening for lipo id disorders Aviva Fernandes D.O. Plan of Treatment Future Appointment(s):* 12/05/2021 2:00 pm - Aviva Ford D.O. at [facility] Functional Status Description No Information Available Mental Status Description No Information Available Referrals Refer to Reason for Referral Status Appt Date Marshall Barajas MD This is a 35 year old female with previous history of unclassified autoimmune disorder. She has a positive GRANT and sjogren's. She has not followed with rheumatology in years but will be re-establishing soon. She has lymphadenopathy on the right neck, axilla and chest. Biopsy done in radiology shows reactive node but they suggest excisional biopsy of one of the nodes. Please evaluate and treat. In the meantime, I am treating with augmentin and will start prednisone today. Sent [address] [id number] [phone] [facility] Rheumatology This is a 35 year old female who previously followed with Dr. Quintero and has not been taking medication for years for Rheumatoid Arthritis and Sjogren's. Please evaluate and treat. Majority of her pain is in her knees. Sent [id number] [address] [phone]
--- OUTSIDE RECORDS SUMMARY | 2021-02-27 18:35 | CCD | Continuity of Care Document ---
Author Author Adriana FORD Organization Unknown Address [address] [place] [address] Phone [phone] Care Team Providers Care Jewelsmith Name Role Phone Aviva Ford D.O. AUTM [facility] AUTM [phone] Victorino Holder M.D. AUTM [phone] Michael Sanchez MD AUTM [phone] [facility] Rheumatology AUTM [phone] Problems Active Problems Provider Date Hirsutism KAR [...] SIG Qnty Indications Ordering Provide r Date Amoxicillin/Clavulanate Potassium 875-125mg Tablets 1 by mouth twice a day x 10 days 20tabs R59.0 Aviva Ford D.O. 02/06/2021 Ultrasound Guided Biopsy Of Right Enlarged Lymph Nodes Dx: R59 1-6units R59.0 Ignacio MccainORd 02/01/2021 Levothyroxine Sodium 75mcg Tablets take one tablet by mouth daily 90tabs E03.9 Miriam Mccain.O. 12/01/2020 Naproxen 500mg Tablets take one tab with food twice a day 60tabs Ignacio MccainORd 02/23 Vitamin D3 Ultra Strength 5000Unit Capsules 1 by mouth every day 90caps Miriam Mccain.O. 04/09/2018 Multivitamin Adult Tablets 1 by mouth every day Unknown Immunizations Description No Information Available Vital Signs Date Vital Result Comment 02/06/2021 2:58pm BP Systolic 110 mmHg BP Diastolic 64 mmHg Height 65.10 inches 5'5.10" Weight 140.12 lb BMI (Body Mass Index) 23.2 kg/m2 Heart Rate 62 /min Respiratory Rate 14 /min Body Temperature 98.5 F O2 % BldC Oximetry 98 % [place] Body Weight 125 lb 12/01/2020 2:55pm BP Systolic 118 mmHg BP Diastolic 72 mmHg Height 65.10 inches 5'5.10" Weight 140.25 lb BMI (Body Mass Index) 23.3 kg/m2 Heart Rate 86 /min Respiratory Rate 18 /min Body Temperature 99.1 F O2 % BldC Oximetry 98 % [place] Body Weight 125 lb Results Test Acquired Date Facility Test Result H/L Range Note CBC With Differential 02/06/2021 [place] [id number] [phone] White Blood Count 7.6 10 Normal 4.0-10.0 [...] 36.0-66.0 Lymph % 13.4 % Low 24.0-44.0 [place] % 3.5 % Normal 2.0-8.0 Eos % 0.1 % Normal 0.0-3.0 Baso % 0.1 % Normal 0.0-1.0 Immature Granulocyte % 0.4 % Normal 0-3.0 Nucleated Red Blood Cell % 0.0 % Normal 0-0 Neutrophils # 6.3 10 Normal 1.5-8.5 Lymph # 1.0 10 Low 1.5-5.0 [place] # 0.3 10 Normal 0.0-0.8 Eos # 0.0 10 Normal 0.0-0.5 Baso # 0.0 10 Normal 0.0-0.2 Laboratory test finding 02/06/[address] [address] [phone] C Reactive Protein Quantitativ < 0.30 mg/dL Normal 0.00-0.30 Erythrocyte Sedimentation Rate 7 mm/hr Normal 0-20 LDH Lactate Dehydrogenase 187 U/L Normal 84-246 FT4&TSH Panel 02/06/2021 [facility] [address] [place] [address] [phone] Thyroid Stimulating Hormone 0.968 uIU/ML Normal 0. 358-3.740 Free T4 1.10 ng/dL Normal 0.76-1.46 Laboratory test finding 02/06/[address] [address] [phone] Rheumatoid Factor Quant < 10.0 IU/mL Normal <15.0 Cyclic Citrullinated Peptide Igg <pending> Laboratory test finding 02/06/[address] [address] [phone] CPK Creatine Phosphokinase 393 U/L High 26-19 2 FT4&TSH Panel 02/03/2021 [facility] system nter [address] [place] [address] [phone] Thyroid Stimulating Hormone 2.900 uIU/ML Normal 0. 358-3.740 Free T4 1.16 ng/dL Normal 0.76-1.46 FT4&TSH Panel 11/22/2020 health system nter [address] [place] [address] [phone] Thyroid Stimulating Hormone 4.350 uIU/ML High 0. 358-3.740 Free T4 0.95 ng/dL Normal 0.76-1.46 Comprehensive Metabolic Profil 11/22/[address] [address] [phone] Glucose, Fasting 81 mg/dL Normal 70-100 Blood Urea Nitrogen 14 mg/dL Normal 7-18 Creatinine For GFR 0.83 mg/dL Normal 0.55-1.30 Glomerular Filtration Rate > 60.0 Normal >60 1 Sodium Level 140 mEq/L Normal 136-145 Potassium [...] 1.2 Normal 1.2-2.2 CBC With Differential 11/22/[address] [address] [phone] White Blood Count 6.9 10 Normal 4.0-10.0 [...] 36.0-66.0 Lymph % 20.1 % Low 24.0-44.0 [place] % 5.9 % Normal 2.0-8.0 Eos % 2.7 % Normal 0.0-3.0 Baso % 0.6 % Normal 0.0-1.0 Immature Granulocyte % 0.3 % Normal 0-3.0 Nucleated Red Blood Cell % 0.0 % Normal 0-0 Neutrophils # 4.9 10 Normal 1.5-8.5 Lymph # 1.4 10 Low 1.5-5.0 [place] # 0.4 10 Normal 0.0-0.8 Eos # 0.2 10 Normal 0.0-0.5 Baso # 0.0 10 Normal 0.0-0.2 Lipid Panel 11/22/[address] [address] [phone] Triglycerides Level 73 mg/dL Normal <150 Cholesterol Level 214 mg/dL High <200 HDL Cholesterol 79 mg/dL Normal >40 LDL Cholesterol 120 mg/dL High <100 Non-HDL-C 135 mg/dL Normal Cholesterol Risk Ratio 2.708 Normal <5 Laboratory test finding 11/22/[address] [address] [phone] Total 25(Oh) Vitamin D 29.4 NG/ML Low 30.0-100. 0 FT4&TSH Panel 09/22/[address] [address] [phone] Thyroid Stimulating Hormone 2.220 uIU/ML Normal 0. 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 R59.0 Localized enlarged lymph nod es Office Visit 12/01/2020 3:00p [facility] Lauri Ford D.O. Z00.00 Encntr for general adult med ical exam w/o abnormal findings M35.00 Sicca syndrome, unspecified M05.70 Rheu arthritis w rheu factor of [facility] w/o org/sys involv E03.9 Hypothyroidism, unspecified Office Visit 09/27/2020 3:40p [facility] Lauri Ford D.O. E03.9 Hypothyroidism, unspecified M51.24 Other intervertebral disc di splacement, thoracic region Z79.899 Other half-way (current) dr johnson therapy Z13.29 Encounter for screening for oth suspected endocrine disorder Z13.0 Encntr screen for dis of the bld/bld-form org/immun mechnsm Z13.220 Encounter for screening for lipoid disorders Assessments Date Code Description Provider 02/06/2021 R59.0 Localized enlarged lymph nodes Kodi Ford D.O. 12/01/2020 Z00.00 Encounter for genera l adult medical examination without abnormal findings Aviva Ford D.O. 12/01/2020 M35.00 Sicca syndrome, unspecified Ignacio MccainORd 12/01/2020 M05.70 Rheumatoid arthritis with rheumatoid factor of unspecified site without organ or systems involvement Aviva Ford D.O. 12/01/2020 E03.9 Hypothyroidism, unspecified Miriam Mccain.ORd 09/27/2020 E03.9 Hypothyroidism, unspecified Ignacio MccainOdR 09/27/2020 M51.24 Other intervertebral disc displa cement, thoracic region Aviva Ford D.O. 09/27/2020 Z79.899 Other half-way (current) drug t herapy Aviva Ford D.O. 09/27/2020 Z13.29 Encounter for screen ing for other suspected endocrine disorder Aviva Ford D.O. 09/27/2020 Z13.0 Encounter for screen ing for diseases of the blood and blood- forming organs and certain disorders involving the immune mechanism Aviva Ford D.O. 09/27/2020 Z13.220 Encounter for screening for lipo id disorders Aviva Fernandes D.O. Plan of Treatment Future Appointment(s):* 02/14/2021 11:40 am - Aviva Ford D.O. at [facility] * 12/05/2021 2:00 pm - Aviva Ford D.O. at [facility] 02/06/2021 - Aviva Ford D.O.* R59.0 Localized enlarged lymph nodes* New Medication:* Amoxicillin/Clavulanate Potassium 875-125 mg - 1 by mouth twice a day x 10 days * Comments:* I will start augmentin for broad spectrum infectious coverage. She had started prednisone that she had at home in case this was autoimmune and I have counseled her to stop that. I will obtain labs. We have preliminary flow ctymetry which shows reactive node. Full report pending. Functional Status Description No Information Available Mental Status Description No Information Available Referrals Refer to Reason for Referral Status Appt Date [facility] Rheumatology This is a 35 year old female who previously followed with Dr. Quintero and has not been taking medication for years for Rheumatoid Arthritis and Sjogren's. Please evaluate and treat. Majority of her pain is in her knees. Sent [address] [facility] [address] [place] [address] [phone]
--- OUTSIDE RECORDS SUMMARY | 2021-02-27 18:35 | CCD | Continuity of Care Document ---
Author Author Adriana FORD Organization Unknown Address [address] [place] [address] Phone [phone] Care Team Providers Care Owner Operator Tanker Truck Driver Name Role Phone Aviva Ford D.O. AUTM [facility] AUTM [phone] Victorino Holder M.D. AUTM [phone] Michael Sanchez MD AUTM [phone] [facility] Rheumatology AUTM [phone] Marshall Barajas MD AUTM [phone] Problems Active Problems Provider Date Hirsutism KAR [...] tab with food twice a day 60tabs Ingacio MccainORd 02/23 Vitamin D3 Ultra Strength 5000Unit [...] F O2 % BldC Oximetry 98 % [place] Body Weight 125 lb 12/01/2020 2:55pm BP Systolic 118 mmHg BP Diastolic 72 mmHg Height 65.10 inches 5'5.10" Weight 140.25 lb BMI (Body Mass Index) 23.3 kg/m2 Heart Rate 86 /min Respiratory Rate 18 /min Body Temperature 99.1 F O2 % BldC Oximetry 98 % [place] Body Weight 125 lb Results Test Acquired Date Facility Test Result H/L Range Note CBC With Differential 02/06/[address] [address] [phone] White Blood Count 7.6 10 Normal 4.0-10.0 [...] 36.0-66.0 Lymph % 13.4 % Low 24.0-44.0 [place] % 3.5 % Normal 2.0-8.0 Eos % 0.1 % Normal 0.0-3.0 Baso % 0.1 % Normal 0.0-1.0 Immature Granulocyte % 0.4 % Normal 0-3.0 Nucleated Red Blood Cell % 0.0 % Normal 0-0 Neutrophils # 6.3 10 Normal 1.5-8.5 Lymph # 1.0 10 Low 1.5-5.0 [place] # 0.3 10 Normal 0.0-0.8 Eos # 0.0 10 Normal 0.0-0.5 Baso # 0.0 10 Normal 0.0-0.2 Laboratory test finding 02/06/[address] [address] [phone] C Reactive Protein Quantitativ < 0.30 mg/dL Normal 0.00-0.30 Erythrocyte Sedimentation Rate 7 mm/hr Normal 0-20 LDH Lactate Dehydrogenase 187 U/L Normal 84-246 Lyme Disease SCRN With Confirm 02/06/[address] [address] [phone] Lyme Disease IgG/IgM Antibodie <0.91 ISR Normal 0 .00-0.90 1 Lyme Disease IgM Ab Quantitati <0.80 index Normal 0.00-0.79 2 FT4&TSH Panel 02/06/2021 [facility] [address] [place] [address] [phone] Thyroid Stimulating Hormone 0.968 uIU/ML Normal 0. 358-3.740 Free T4 1.10 ng/dL Normal 0.76-1.46 Laboratory test finding 02/06/[address] [address] [phone] Rheumatoid Factor Quant < 10.0 IU/mL Normal <15.0 Cyclic Citrullinated Peptide 6 units Normal 0-19 3 Antinuclear Antibodies 02/06/[address] [address] [phone] Antinuclear Antibodies Direct Positive Abnormal Ne gative Anti Double Strand-Dna AB 3 IU/mL Normal 0-9 4 FARM CREW LEADER Antibodies <0.2 AI Normal 0.0-0.9 [place] Antibodies <0.2 AI Normal 0.0-0.9 Sjogren's Anti SS-A 6.4 AI High 0.0-0.9 Sjogren's Anti SS-B 0.2 AI Normal 0.0-0.9 [place] Comment (SEE NOTE) Normal . 5 Laboratory test finding 02/06/[address] [address] [phone] CPK Creatine Phosphokinase 393 U/L High 26-19 2 FT4&TSH Panel 02/03/2021 [facility] [address] [place] [address] [phone] Thyroid Stimulating Hormone 2.900 uIU/ML Normal 0. 358-3.740 Free T4 1.16 ng/dL Normal 0.76-1.46 Laboratory test finding 02/01/2021 [facility] Outpatient T yousifing (Registration) [address] [place] [address] [phone] Pathology Request For Service (SEE NOTE) 6 FT4&TSH Panel 11/22/2020 [facility] [address] [place] [address] [phone] Thyroid Stimulating Hormone 4.350 uIU/ML High 0. 358-3.740 Free T4 0.95 ng/dL Normal 0.76-1.46 Comprehensive Metabolic Profil 11/22/[address] [address] [phone] Glucose, Fasting 81 mg/dL Normal 70-100 Blood [...] 1.2 Normal 1.2-2.2 CBC With Differential 11/22/[address] [phone] White Blood Count 6.9 10 Normal 4.0-10.0 [...] 36.0-66.0 Lymph % 20.1 % Low 24.0-44.0 [place] % 5.9 % Normal 2.0-8.0 Eos % 2.7 % Normal 0.0-3.0 Baso % 0.6 % Normal 0.0-1.0 Immature Granulocyte % 0.3 % Normal 0-3.0 Nucleated Red Blood Cell % 0.0 % Normal 0-0 Neutrophils # 4.9 10 Normal 1.5-8.5 Lymph # 1.4 10 Low 1.5-5.0 [place] # 0.4 10 Normal 0.0-0.8 Eos # 0.2 10 Normal 0.0-0.5 Baso # 0.0 10 Normal 0.0-0.2 Lipid Panel 11/22/2020 [facility] [address] [place] [address] [phone] Triglycerides Level 73 mg/dL Normal <150 Cholesterol Level 214 mg/dL High <200 HDL Cholesterol 79 mg/dL Normal >40 LDL Cholesterol 120 mg/dL High <100 Non-HDL-C 135 mg/dL Normal Cholesterol Risk Ratio 2.708 Normal <5 Laboratory test finding 11/22/2020 [facility] [address] [place] [address] [phone] Total 25(Oh) Vitamin D 29.4 NG/ML Low 30.0-100. 0 FT4&TSH [facility]22/2020 [facility] [address] [place] [address] [phone] Thyroid Stimulating Hormone 2.220 uIU/ML Normal 0. [...] (anti-[place]) SLE 15 - 30% ------- --------- FARM CREW LEADER Mixed Connective Tissue Disease 95% (U1 nRNP, SLE 30 - 50% anti-ribonucleoprotein) Polymyositis and/or Dermatomyositis 20% -------- --------- Scl-70 (antiDNA Scleroderma (diffuse) 20 - 35% topoisomerase) Crest 13% -------- --------- Hanna-1 Polymyositis and/or Dermatomyositis 20 - 40% -------- --------- Centromere B Scleroderma - Crest variant 80% Performed at: - [facility] [address] [id number] Line Lead: Torie Bobo MD, Phone: [phone] Performed at: - [facility] [address] [id number] Line Lead: Vladimir Carrera MD, Phone: [phone] FINAL DIAGNOSIS Lymph node, right subclavicular, [...] Little GFR Left ESRD GFR <15 on POLICEMAN Procedures Date Code Description Status 02/06/2021 35300 Office/Outpatient Established Mo d MDM 30-39 Min Completed 12/01/2020 03268 Preventive Visit Est 18-39 Yrs C ompleted 09/27/2020 47037 Office/Outpatient Established Mo d MDM 30-39 Min Completed Medical Devices Description No Information Available Encounters Type Date Location Provider Dx Diagnosis Office Visit 02/06/2021 3:00p [facility] Aviva Ford D.O. R59.0 Localized enlarged lymph nod es Office Visit 12/01/2020 3:00p [facility] Lauri Ford D.O. Z00.00 Encntr for general adult med ical exam w/o abnormal findings M35.00 Sicca syndrome, unspecified M05.70 Rheu arthritis w rheu factor of [facility] site w/o org/sys involv E03.9 Hypothyroidism, unspecified Office Visit 09/27/2020 3:40p [facility] Aviva Ford D.O. 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 [...] 11:40 am - Aviva Ford D.O. at [facility] * 12/05/2021 2:00 pm - Aviva Ford D.O. at [facility] 02/06/2021 - Aviva oFrd D.O.* R59.0 Localized enlarged lymph nodes* New [...] Description No Information Available Referrals Refer to Dr Reason for Referral Status Appt Date Marshall [...] and will start prednisone today. Sent [address] [place] [address] [phone] [facility] Rheumatology This is a 35 year old female who previously followed with Dr. Quintero and has not been taking medication for years for Rheumatoid Arthritis and Sjogren's. Please evaluate and treat. Majority of her pain is in her knees. Sent [id number] [place] [id number] [phone]
--- OUTSIDE RECORDS SUMMARY | 2021-02-27 18:35 | CCD | Continuity of Care Document ---
Author Author Adriana FORD Organization Unknown Address [address] [place] [address] Phone [phone] Care Team Providers Care Benefits Coordinator Name Role Phone Aviva Ford D.O. AUTM [facility] AUTM [phone] Victorino Holder M.D. AUTM [phone] Michael Sanchez MD AUTM [phone] [facility] Rheumatology AUTM [phone] Problems Active Problems Provider Date Hirsutism KAR [...] F O2 % BldC Oximetry 98 % [place] Body Weight 125 lb 12/01/2020 2:55pm BP Systolic 118 mmHg BP Diastolic 72 mmHg Height 65.10 inches 5'5.10" Weight 140.25 lb BMI (Body Mass Index) 23.3 kg/m2 Heart Rate 86 /min Respiratory Rate 18 /min Body Temperature 99.1 F O2 % BldC Oximetry 98 % [place] Body Weight 125 lb Results Test Acquired Date Facility Test Result H/L Range Note CBC With Differential 02/06/2021 [place] [id number] [phone] White Blood Count 7.6 10 Normal 4.0-10.0 [...] 36.0-66.0 Lymph % 13.4 % Low 24.0-44.0 [place] % 3.5 % Normal 2.0-8.0 Eos % 0.1 % Normal 0.0-3.0 Baso % 0.1 % Normal 0.0-1.0 Immature Granulocyte % 0.4 % Normal 0-3.0 Nucleated Red Blood Cell % 0.0 % Normal 0-0 Neutrophils # 6.3 10 Normal 1.5-8.5 Lymph # 1.0 10 Low 1.5-5.0 [place] # 0.3 10 Normal 0.0-0.8 Eos # 0.0 10 Normal 0.0-0.5 Baso # 0.0 10 Normal 0.0-0.2 Laboratory test finding 02/06/[address] [address] [phone] C Reactive Protein Quantitativ < 0.30 mg/dL Normal 0.00-0.30 Erythrocyte Sedimentation Rate 7 mm/hr Normal 0-20 LDH Lactate Dehydrogenase 187 U/L Normal 84-246 FT4&TSH Panel 02/06/2021 [facility] nter [address] [place] [address] [phone] Thyroid Stimulating Hormone 0.968 uIU/ML Normal 0. 358-3.740 Free T4 1.10 ng/dL Normal 0.76-1.46 Laboratory test finding 02/06/[address] [address] [phone] Rheumatoid Factor Quant < 10.0 IU/mL Normal <15.0 Cyclic Citrullinated Peptide Igg <pending> Laboratory test finding 02/06/[address] [address] [phone] CPK Creatine Phosphokinase 393 U/L High 26-19 2 FT4&TSH Panel 02/03/2021 [facility] nter [address] [place] [address] [phone] Thyroid Stimulating Hormone 2.900 uIU/ML Normal 0. 358-3.740 Free T4 1.16 ng/dL Normal 0.76-1.46 Laboratory test finding 02/01/2021 [facility] Outpatient T clari (Registration) [address] [place] [address] [phone] Pathology Request For Service (SEE NOTE) 1 FT4&TSH Panel 11/22/2020 [facility] ce nter [address] [place] [address] [phone] Thyroid Stimulating Hormone 4.350 uIU/ML High 0. 358-3.740 Free T4 0.95 ng/dL Normal 0.76-1.46 Comprehensive Metabolic Profil 11/22/[address] [address] [phone] Glucose, Fasting 81 mg/dL Normal 70-100 Blood Urea Nitrogen 14 mg/dL Normal 7-18 Creatinine For GFR 0.83 mg/dL Normal 0.55-1.30 Glomerular Filtration Rate > 60.0 Normal >60 2 Sodium Level 140 mEq/L Normal 136-145 Potassium [...] 1.2 Normal 1.2-2.2 CBC With Differential 11/22/[address] [address] [phone] White Blood Count 6.9 10 Normal 4.0-10.0 [...] 36.0-66.0 Lymph % 20.1 % Low 24.0-44.0 [place] % 5.9 % Normal 2.0-8.0 Eos % 2.7 % Normal 0.0-3.0 Baso % 0.6 % Normal 0.0-1.0 Immature Granulocyte % 0.3 % Normal 0-3.0 Nucleated Red Blood Cell % 0.0 % Normal 0-0 Neutrophils # 4.9 10 Normal 1.5-8.5 Lymph # 1.4 10 Low 1.5-5.0 [place] # 0.4 10 Normal 0.0-0.8 Eos # 0.2 10 Normal 0.0-0.5 Baso # 0.0 10 Normal 0.0-0.2 Lipid Panel 11/22/2020 [facility] [place] [address] [place] [address] [phone] Triglycerides Level 73 mg/dL Normal <150 Cholesterol Level 214 mg/dL High <200 HDL Cholesterol 79 mg/dL Normal >40 LDL Cholesterol 120 mg/dL High <100 Non-HDL-C 135 mg/dL Normal Cholesterol Risk Ratio 2.708 Normal <5 Laboratory test finding 11/22/2020 [facility] [address] [place] [address] [phone] Total 25(Oh) Vitamin D 29.4 NG/ML Low 30.0-100. 0 FT4&TSH Panel 09/22/2020 [facility] nter [address] [place] [address] [phone] Thyroid Stimulating Hormone 2.220 uIU/ML Normal 0. 358-3.740 Free T4 0.88 ng/dL Normal 0.76-1.46 1 FINAL DIAGNOSIS Lymph node, right subclavicular, needle core biopsy: B-cell hyperplasia, and no evidence of lymphoma. Reactive lymphoid subsets noted in flow cytometry. No immunophenotypic evidence of non-Hodgkin lymphoma. Excisional biopsy could be helpful if lymphadenopathy persists. 02/08/2021 - 813 CLINICAL DIAGNOSIS Right chest enlarged lymph node 02/02/2021 - 1336 GROSS DIAGNOSIS Received in formalin labeled "right subclavian lymph node biopsy" and consists of multiple barton-white needle core shaped fragments measuring 1.2 x 0.3 x 0.1 cm. in aggregate. All in one. Additional tissue received in RPMI. 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 Procedures Date Code Description Status 02/06/2021 48098 Office/Outpatient Established Mo d MDM 30-39 Min Completed 12/01/2020 18816 Preventive Visit Est 18-39 Yrs C ompleted 09/27/2020 37875 Office/Outpatient Established Mo d MDM 30-39 Min Completed Medical Devices Description No Information Available Encounters Type Date Location Provider Dx Diagnosis Office Visit 02/06/2021 3:00p [facility] Ignacio ReeceORd R59.0 Localized enlarged lymph nod es Office Visit 12/01/2020 3:00p [facility] Ignacio ReeceORd Z00.00 Encntr for general adult med ical exam w/o abnormal findings M35.00 Sicca syndrome, unspecified M05.70 Rheu arthritis w rheu factor of [facility] site w/o org/sys involv E03.9 Hypothyroidism, unspecified Office Visit 09/27/2020 3:40p [facility] Ignacio ReeceORd E03.9 Hypothyroidism, unspecified M51.24 Other intervertebral disc di splacement, thoracic region Z79.899 Other usp (current) dr ug therapy Z13.29 Encounter for screening for oth [...] Aviva Ford D.O. 12/01/2020 E03.9 Hypothyroidism, unspecified Ignacio MccainORd 09/27/2020 E03.9 Hypothyroidism, unspecified Aviva Ford D.O. 09/27/2020 M51.24 Other intervertebral disc displa cement, thoracic region Aviva Ford D.O. 09/27/2020 Z79.899 Other usp (current) drug t herapy Aviva Ford D.O. [...] 11:40 am - Aviva Ford D.O. at [facility] * 12/05/2021 2:00 pm - Aviva Ford D.O. at [facility] 02/06/2021 - Aviva Fer-Dom, D.O.* R59.0 Localized enlarged lymph nodes* New [...] Dr Reason for Referral Status Appt Date [facility] Rheumatology This is a 35 year old female who previously followed with Dr. Quintero and has not been taking medication for years for Rheumatoid Arthritis and Sjogren's. Please evaluate and treat. Majority of her pain is in her knees. Sent [id number] [address] [phone]
--- OUTSIDE RECORDS SUMMARY | 2021-02-27 18:35 | CCD | Continuity of Care Document ---
Author Author Adriana FORD Organization Unknown Address [address] [place] [address] Phone [phone] Care Team Providers Care Telephone Installer Name Role Phone Aviva Ford D.O. AUTM [facility] AUTM [phone] Victorino Holder M.D. AUTM [phone] Michael Sanchez MD AUTM [phone] [facility] Rheumatology AUTM [phone] Marshall Barajas MD AUTM [phone] Problems Active Problems Provider Date Hirsutism KAR [...] F O2 % BldC Oximetry 99 % [place] Body Weight 125 lb 02/06/2021 2:58pm BP Systolic 110 mmHg BP Diastolic 64 mmHg Height 65.10 inches 5'5.10" Weight 140.12 lb BMI (Body Mass Index) 23.2 kg/m2 Heart Rate 62 /min Respiratory Rate 14 /min Body Temperature 98.5 F O2 % BldC Oximetry 98 % [place] Body Weight 125 lb Results Test Acquired Date Facility Test Result H/L Range Note CBC With Differential 02/06/[address] [address] [phone] White Blood Count 7.6 10 Normal 4.0-10.0 [...] 36.0-66.0 Lymph % 13.4 % Low 24.0-44.0 [place] % 3.5 % Normal 2.0-8.0 Eos % 0.1 % Normal 0.0-3.0 Baso % 0.1 % Normal 0.0-1.0 Immature Granulocyte % 0.4 % Normal 0-3.0 Nucleated Red Blood Cell % 0.0 % Normal 0-0 Neutrophils # 6.3 10 Normal 1.5-8.5 Lymph # 1.0 10 Low 1.5-5.0 [place] # 0.3 10 Normal 0.0-0.8 Eos # 0.0 10 Normal 0.0-0.5 Baso # 0.0 10 Normal 0.0-0.2 Laboratory test finding 02/06/[address] [address] [phone] C Reactive Protein Quantitativ < 0.30 mg/dL Normal 0.00-0.30 Erythrocyte Sedimentation Rate 7 mm/hr Normal 0-20 LDH Lactate Dehydrogenase 187 U/L Normal 84-246 Lyme Disease SCRN With Confirm 02/06/[address] [address] [phone] Lyme Disease IgG/IgM Antibodie <0.91 ISR Normal 0 .00-0.90 1 Lyme Disease IgM Ab Quantitati <0.80 index Normal 0.00-0.79 2 FT4&TSH Panel 02/06/2021 [facility] [address] [place] [address] [phone] Thyroid Stimulating Hormone 0.968 uIU/ML Normal 0. 358-3.740 Free T4 1.10 ng/dL Normal 0.76-1.46 Laboratory test finding 02/06/[address] [address] [phone] Rheumatoid Factor Quant < 10.0 IU/mL Normal <15.0 Cyclic Citrullinated Peptide 6 units Normal 0-19 3 Antinuclear Antibodies 02/06/[address] [address] [phone] Antinuclear Antibodies Direct Positive Abnormal Ne gative Anti Double Strand-Dna AB 3 IU/mL Normal 0-9 4 MOBILE APPLICATION DEVELOPMENT LEAD Antibodies <0.2 AI Normal 0.0-0.9 [place] Antibodies <0.2 AI Normal 0.0-0.9 Sjogren's Anti SS-A 6.4 AI High 0.0-0.9 Sjogren's Anti SS-B 0.2 AI Normal 0.0-0.9 Grant Comment (SEE NOTE) Normal . 5 Laboratory test finding 02/06/[address] [address] [phone] CPK Creatine Phosphokinase 393 U/L High 26-19 2 FT4&TSH Panel 02/03/2021 [facility] n[facility] [address] [place] [address] [phone] Thyroid Stimulating Hormone 2.900 uIU/ML Normal 0. 358-3.740 Free T4 1.16 ng/dL Normal 0.76-1.46 Laboratory test finding 02/01/2021 [facility] Outpatient T yousifing (Registration) [address] [place] [address] [phone] Pathology Request For Service (SEE NOTE) 6 FT4&TSH Panel 11/22/2020 [facility] n[facility] [address] [place] [address] [phone] Thyroid Stimulating Hormone 4.350 uIU/ML High 0. 358-3.740 Free T4 0.95 ng/dL Normal 0.76-1.46 Comprehensive Metabolic Profil 11/22/[address] [address] [phone] Glucose, Fasting 81 mg/dL Normal 70-100 Blood [...] 1.2 Normal 1.2-2.2 CBC With Differential 11/22/[address] [phone] White Blood Count 6.9 10 Normal 4.0-10.0 [...] 36.0-66.0 Lymph % 20.1 % Low 24.0-44.0 [place] % 5.9 % Normal 2.0-8.0 Eos % 2.7 % Normal 0.0-3.0 Baso % 0.6 % Normal 0.0-1.0 Immature Granulocyte % 0.3 % Normal 0-3.0 Nucleated Red Blood Cell % 0.0 % Normal 0-0 Neutrophils # 4.9 10 Normal 1.5-8.5 Lymph # 1.4 10 Low 1.5-5.0 [place] # 0.4 10 Normal 0.0-0.8 Eos # 0.2 10 Normal 0.0-0.5 Baso # 0.0 10 Normal 0.0-0.2 Lipid Panel 11/22/2020 [facility] [address] [place] [address] [phone] Triglycerides Level 73 mg/dL Normal <150 Cholesterol Level 214 mg/dL High <200 HDL Cholesterol 79 mg/dL Normal >40 LDL Cholesterol 120 mg/dL High <100 Non-HDL-C 135 mg/dL Normal Cholesterol Risk Ratio 2.708 Normal <5 Laboratory test finding 11/22/2020 [facility] [address] [place] [address] [phone] Total 25(Oh) Vitamin D 29.4 NG/ML Low 30.0-100. 0 FT4&TSH Panel 09/22/2020 [facility] [place] [address] [place] [address] [phone] Thyroid Stimulating Hormone 2.220 uIU/ML Normal 0. [...] (anti-Trujillo) SLE 15 - 30% ------- --------- MOBILE APPLICATION DEVELOPMENT LEAD Mixed Connective Tissue Disease 95% (U1 nRNP, SLE 30 - 50% anti-ribonucleoprotein) Polymyositis and/or Dermatomyositis 20% -------- --------- Scl-70 (antiDNA Scleroderma (diffuse) 20 - 35% topoisomerase) Crest 13% -------- --------- Hanna-1 Polymyositis and/or Dermatomyositis 20 - 40% -------- --------- Centromere B Scleroderma - Crest variant 80% Performed at: - [facility] [address] [id number] Construction Teacher: Torie Bobo MD, Phone: [phone] Performed at: - [facility] [address] [id number] Construction Teacher: Vladimir Carrera MD, Phone: [phone] FINAL DIAGNOSIS Lymph node, right subclavicular, [...] Little GFR Left ESRD GFR <15 on MIRROR FABRICATION SUPERVISOR Procedures Date Code Description Status 02/14/2021 28331 Office/Outpatient Established Lo w MDM 20-29 Min Completed 02/06/2021 89352 Office/Outpatient Established Mo d MDM 30-39 Min Completed 12/01/2020 97868 Preventive Visit Est 18-39 Yrs C ompleted 09/27/2020 21871 Office/Outpatient Established Mo d MDM 30-39 Min Completed Medical Devices Description No Information Available Encounters Type Date Location Provider Dx Diagnosis Office Visit 02/14/2021 11:40a [facility] Lauri Ford D.O. R59.0 Localized enlarged lymph nod es M35.00 Sjogren syndrome, unspecifie d M05.70 Rheu arthritis w rheu factor of [facility] w/o org/sys involv Office Visit 02/06/2021 3:00p [facility] Aviva Ford D.O. R59.0 Localized enlarged lymph nod es Office Visit 12/01/2020 3:00p [facility] Ignacio MccainO. Z00.00 Encntr for general adult med ical exam w/o abnormal findings M35.00 Sicca syndrome, unspecified M05.70 Rheu arthritis w rheu factor [facility] w/o org/sys involv E03.9 Hypothyroidism, unspecified Office Visit 09/27/2020 3:40p [facility] Aviva Ford D.O. 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 09/27/2020 Z79.899 Other longwall machine operator helper (current) drug t herapy Aviva Ford D.O. [...] 2:00 pm - Aviva Ford D.O. at [facility] Functional Status Description No Information Available Mental [...] and will start prednisone today. Sent [address] [place] [id number] [phone] [facility] Rheumatology This is a 35 year old female who previously followed with Dr. Quintero and has not been taking medication for years for Rheumatoid Arthritis and Sjogren's. Please evaluate and treat. Majority of her pain is in her knees. Sent [address] [address] [phone]
--- OUTSIDE RECORDS SUMMARY | 2021-02-27 18:36 | CCD | Continuity of Care Document ---
Author Author Adriana FORD Organization Unknown Address [address] [place] [address] Phone [phone] Care Team Providers Care Wooden Tank Erector Name Role Phone Aviva Ford D.O. AUTM [facility] AUTM [phone] Victorino Holder M.D. AUTM [phone] Michael Sanchez MD AUTM [phone] [facility] Rheumatology AUTM [phone] Problems Active Problems Provider Date Hirsutism KAR [...] F O2 % BldC Oximetry 98 % [place] Body Weight 125 lb 12/01/2020 2:55pm BP Systolic 118 mmHg BP Diastolic 72 mmHg Height 65.10 inches 5'5.10" Weight 140.25 lb BMI (Body Mass Index) 23.3 kg/m2 Heart Rate 86 /min Respiratory Rate 18 /min Body Temperature 99.1 F O2 % BldC Oximetry 98 % [place] Body Weight 125 lb Results Test Acquired Date Facility Test Result H/L Range Note CBC With Differential 02/06/2021 [place] [id number] [phone] White Blood Count 7.6 10 Normal 4.0-10.0 [...] 36.0-66.0 Lymph % 13.4 % Low 24.0-44.0 [place] % 3.5 % Normal 2.0-8.0 Eos % 0.1 % Normal 0.0-3.0 Baso % 0.1 % Normal 0.0-1.0 Immature Granulocyte % 0.4 % Normal 0-3.0 Nucleated Red Blood Cell % 0.0 % Normal 0-0 Neutrophils # 6.3 10 Normal 1.5-8.5 Lymph # 1.0 10 Low 1.5-5.0 [place] # 0.3 10 Normal 0.0-0.8 Eos # 0.0 10 Normal 0.0-0.5 Baso # 0.0 10 Normal 0.0-0.2 Laboratory test finding 02/06/[address] [address] [phone] C Reactive Protein Quantitativ < 0.30 mg/dL Normal 0.00-0.30 Erythrocyte Sedimentation Rate 7 mm/hr Normal 0-20 LDH Lactate Dehydrogenase 187 U/L Normal 84-246 FT4&TSH Panel 02/06/2021 [facility] n[facility] [address] [place] [address] [phone] Thyroid Stimulating Hormone 0.968 uIU/ML Normal 0. 358-3.740 Free T4 1.10 ng/dL Normal 0.76-1.46 Laboratory test finding 02/06/[address] [address] [phone] Rheumatoid Factor Quant < 10.0 IU/mL Normal <15.0 Cyclic Citrullinated Peptide Igg <pending> Laboratory test finding 02/06/[address] [address] [phone] CPK Creatine Phosphokinase 393 U/L High 26-19 2 FT4&TSH Panel 02/03/2021 [facility] n[facility] [address] [place] [address] [phone] Thyroid Stimulating Hormone 2.900 uIU/ML Normal 0. 358-3.740 Free T4 1.16 ng/dL Normal 0.76-1.46 FT4&TSH Panel 11/22/2020 [facility] n[facility] [address] [place] [address] [phone] Thyroid Stimulating Hormone 4.350 uIU/ML High 0. 358-3.740 Free T4 0.95 ng/dL Normal 0.76-1.46 Comprehensive Metabolic Profil 11/22/[address] [address] [phone] Glucose, Fasting 81 mg/dL Normal 70-100 Blood [...] 1.2 Normal 1.2-2.2 CBC With Differential 11/22/[address] [address] [phone] White Blood Count 6.9 10 Normal 4.0-10.0 [...] 36.0-66.0 Lymph % 20.1 % Low 24.0-44.0 [place] % 5.9 % Normal 2.0-8.0 Eos % 2.7 % Normal 0.0-3.0 Baso % 0.6 % Normal 0.0-1.0 Immature Granulocyte % 0.3 % Normal 0-3.0 Nucleated Red Blood Cell % 0.0 % Normal 0-0 Neutrophils # 4.9 10 Normal 1.5-8.5 Lymph # 1.4 10 Low 1.5-5.0 [place] # 0.4 10 Normal 0.0-0.8 Eos # 0.2 10 Normal 0.0-0.5 Baso # 0.0 10 Normal 0.0-0.2 Lipid Panel 11/22/[address] [address] [phone] Triglycerides Level 73 mg/dL Normal <150 Cholesterol Level 214 mg/dL High <200 HDL Cholesterol 79 mg/dL Normal >40 LDL Cholesterol 120 mg/dL High <100 Non-HDL-C 135 mg/dL Normal Cholesterol Risk Ratio 2.708 Normal <5 Laboratory test finding 11/22/[address] [address] [phone] Total 25(Oh) Vitamin D 29.4 NG/ML Low 30.0-100. 0 FT4&TSH Panel 09/22/[address] [address] [phone] Thyroid Stimulating Hormone 2.220 uIU/ML Normal 0. 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 R59.0 Localized enlarged lymph nod es Office Visit 12/01/2020 3:00p [facility] Lauri Ford D.O. Z00.00 Encntr for general adult med ical exam w/o abnormal findings M35.00 Sicca syndrome, unspecified M05.70 Rheu arthritis w rheu factor of [facility] w/o org/sys involv E03.9 Hypothyroidism, unspecified Office Visit 09/27/2020 3:40p [facility] Lauri Ford D.O. E03.9 Hypothyroidism, unspecified M51.24 Other intervertebral disc di splacement, thoracic region Z79.899 Other shelter (current) dr johnson therapy Z13.29 Encounter for [...] Miriam Mccain.ORd 09/27/2020 E03.9 Hypothyroidism, unspecified Ignacio MccainORd 09/27/2020 M51.24 Other intervertebral disc displa cement, thoracic region Aviva Ford D.O. 09/27/2020 Z79.899 Other shelter (current) drug t herapy Aviva Ford D.O. [...] 11:40 am - Aviva Ford D.O. at [facility] * 12/05/2021 2:00 pm - Aviva Ford D.O. at [facility] 02/06/2021 - Aviva Ford D.O.* R59.0 [...] to Reason for Referral Status Appt Date [facility] Rheumatology This is a 35 year old female who previously followed with Dr. Quintero and has not been taking medication for years for Rheumatoid Arthritis and Sjogren's. Please evaluate and treat. Majority of her pain is in her knees. Sent [address] [facility] [address] [place] [address] [phone]
--- OUTSIDE RECORDS SUMMARY | 2021-02-27 18:36 | CCD ---
Author Author [facility] Organization [facility] Address Unknown Phone Unavailable Care Team Providers Care Box Machine Operator Name Role Phone Danny Laureano Unavailable PROBLEMS Type Condition ICD9-CM Code [id number] Code Onset Dates Condition S tatus W/U Status Risk SNOMED Code Notes Problem Vitamin D deficiency E55.9 Active confirmed 49969856 Problem Anxiety and depression F41.9 Active confirmed 244459261 Problem Varicose veins I86.8 Active confirmed 97167 0009 Problem Hyperpigmentation L81.9 Active confirmed 49 484522 Problem Hypothyroidism E03.9 Active confirmed 66852 008 Well-controlled on current dose of levothyroxine, no medication changes have been made Problem Sjogrens syndrome M35.00 Active confirmed 83 366809 Stable on current regimen, no medication changes have been made, continue follow-up with rheumatology Problem Acne L70.9 Active confirmed 22049122 We w ill see Jorge for this now Problem Mixed hyperlipidemia E78.2 Active confirmed 086553960 Problem Polycystic ovarian syndrome E28.2 Active confirmed 72849287 Well controlled after surgery Problem Sjogren's syndrome, with unspecified organ involvement M35.00 Active confirmed 08482230 Problem Irregular heartbeat I49.9 Active confirmed 794546883 ALLERGIES No Known Allergies ENCOUNTERS from 1984 to 2021-01-25 Encounter Location Date Provider Diagnosis [facility] [address] [facility] [phone] [place] [address] Jan, Danny Laureano Cervical cancer scre ening Z12.4 and Encounter for annual routine gynecological examination Z01.419 IMMUNIZATIONS No Information SOCIAL HISTORY Tobacco Use: Social History Observation Description Date Details (start date - stop date) Never Smoker Sex Assigned At : Social History Observation Description Sex Assigned At Unknown BMI Care Goal Follow-Up Question Answer Notes Above Normal BMI Follow-Up at goal Tobacco Use: Question Answer Notes Are you a: never smoker REASON FOR REFERRAL No Information VITAL SIGNS Weight 138.8 lbs Jan, Weight-kg 62.96 kg Jan, Height 66.75 in Jan, BMI 21.9 kg/m2 Jan, Blood pressure systolic 112 mm Hg Jan, Blood pressure diastolic 66 mm Hg Jan, MEDICATIONS Medication SIG (Take, Route, Frequency, Duration) Notes Start Da te End Date Status Hydroquinone 4 % 1 application Externally Twice a day for 30 day s Oct, Not-Taking Physical Therapy evaluate and treat mechanical eval & tx S76.319A (pulled hamstring on left 3 x/wk for 1 month Mar, Not-Taking Levothyroxine Sodium 75 MCG 1 tablet on an empty stomach Orally Onc e a day Active Bimatoprost 0.03 % 1 drop into affected eyelash in the evening Ophthalmic Once a day for cosmetic use for 30 Days Sep, Not-Taking PROCEDURES No Information RESULTS No Results REASON FOR VISIT ANNUAL MEDICAL (GENERAL) HISTORY Type Description Date Medical History hypothyroidism Medical History Endometriosis Surgical History repair of deviated septum 2008 Surgical History right breast lumpectomy 2008 Surgical History Endometriosis-exploratory laparoscopy Goals Section No Information Health Concerns No Information MEDICAL EQUIPMENT No Information MENTAL STATUS No Information FUNCTIONAL STATUS No Information ASSESSMENTS Encounter Date Diagnosis Assessment Notes Treatment Notes Treatm ent Clinical Notes Jan, Cervical cancer screening (ICD-10 - Z12.4) Jan, Encounter for annual routine gynecological examination (ICD-10 - Z01.419) PLAN OF TREATMENT Pending Tests Test Name Order Date PAP REQUEST FOR SERVICE 2021-01-24 Next Appt Details 1 Year Reason: Provider Name:Rory Haque, 02-24 02:30:00 PM, [address] [facility], , [place], [address], Provider Name:Monica Owusu, 07:15:00 AM, [address] [facility], , [place], [address], Provider Name:Callie Younger, 2021-11-21 03:00:00 PM, [address] [place] [address], , [place], [address], Insurance Providers Payer Name Payer Address Payer Phone Insured Name Patient Relati onship to Insured Coverage Start Date Coverage End Date [employer] PPO [id number] [address] JORGE GOOD self
--- OUTSIDE RECORDS SUMMARY | 2021-02-27 18:36 | CCD | Continuity of Care Document ---
Author Author Adriana FORD Organization Unknown Address [address] [place] [address] Phone [phone] Care Team Providers Care Vessel Crew Member Name Role Phone Aviva Ford D.O. AUTM [facility] AUTM [phone] Victorino Holder M.D. AUTM [phone] Michael Sanchez MD AUTM [phone] [facility] Rheumatology AUTM [phone] Problems Active Problems Provider Date Hirsutism KAR [...] F O2 % BldC Oximetry 98 % [place] Body Weight 125 lb 12/01/2020 2:55pm BP Systolic 118 mmHg BP Diastolic 72 mmHg Height 65.10 inches 5'5.10" Weight 140.25 lb BMI (Body Mass Index) 23.3 kg/m2 Heart Rate 86 /min Respiratory Rate 18 /min Body Temperature 99.1 F O2 % BldC Oximetry 98 % [place] Body Weight 125 lb Results Test Acquired Date Facility Test Result H/L Range Note CBC With Differential 02/06/2021 [place] [phone] White Blood Count 7.6 10 Normal 4.0-10.0 [...] 36.0-66.0 Lymph % 13.4 % Low 24.0-44.0 [place] % 3.5 % Normal 2.0-8.0 Eos % 0.1 % Normal 0.0-3.0 Baso % 0.1 % Normal 0.0-1.0 Immature Granulocyte % 0.4 % Normal 0-3.0 Nucleated Red Blood Cell % 0.0 % Normal 0-0 Neutrophils # 6.3 10 Normal 1.5-8.5 Lymph # 1.0 10 Low 1.5-5.0 [place] # 0.3 10 Normal 0.0-0.8 Eos # 0.0 10 Normal 0.0-0.5 Baso # 0.0 10 Normal 0.0-0.2 Laboratory test finding 02/06/[address] [address] [phone] C Reactive Protein Quantitativ < 0.30 mg/dL Normal 0.00-0.30 Erythrocyte Sedimentation Rate 7 mm/hr Normal 0-20 LDH Lactate Dehydrogenase 187 U/L Normal 84-246 FT4&TSH Panel 02/06/2021 [facility] [address] [place] [address] [phone] Thyroid Stimulating Hormone 0.968 uIU/ML Normal 0. 358-3.740 Free T4 1.10 ng/dL Normal 0.76-1.46 Laboratory test finding 02/06/[address] [address] [phone] Rheumatoid Factor Quant < 10.0 IU/mL Normal <15.0 Cyclic Citrullinated Peptide Igg <pending> Laboratory test finding 02/06/[address] [address] [phone] CPK Creatine Phosphokinase 393 U/L High 26-19 2 FT4&TSH Panel 02/03/2021 [facility] [address] [place] [address] [phone] Thyroid Stimulating Hormone 2.900 uIU/ML Normal 0. 358-3.740 Free T4 1.16 ng/dL Normal 0.76-1.46 FT4&TSH Panel 11/22/2020 [facility] [address] [place] [address] [phone] Thyroid Stimulating Hormone 4.350 uIU/ML High 0. 358-3.740 Free T4 0.95 ng/dL Normal 0.76-1.46 Comprehensive Metabolic Profil 11/22/[address] [address] [phone] Glucose, Fasting 81 mg/dL Normal 70-100 Blood [...] 1.2 Normal 1.2-2.2 CBC With Differential 11/22/[address] [address] [phone] White Blood Count 6.9 10 Normal 4.0-10.0 [...] 36.0-66.0 Lymph % 20.1 % Low 24.0-44.0 [place] % 5.9 % Normal 2.0-8.0 Eos % 2.7 % Normal 0.0-3.0 Baso % 0.6 % Normal 0.0-1.0 Immature Granulocyte % 0.3 % Normal 0-3.0 Nucleated Red Blood Cell % 0.0 % Normal 0-0 Neutrophils # 4.9 10 Normal 1.5-8.5 Lymph # 1.4 10 Low 1.5-5.0 [place] # 0.4 10 Normal 0.0-0.8 Eos # 0.2 10 Normal 0.0-0.5 Baso # 0.0 10 Normal 0.0-0.2 Lipid Panel 11/22/[address] [address] [phone] Triglycerides Level 73 mg/dL Normal <150 Cholesterol Level 214 mg/dL High <200 HDL Cholesterol 79 mg/dL Normal >40 LDL Cholesterol 120 mg/dL High <100 Non-HDL-C 135 mg/dL Normal Cholesterol Risk Ratio 2.708 Normal <5 Laboratory test finding 11/22/[address] [address] [phone] Total 25(Oh) Vitamin D 29.4 NG/ML Low 30.0-100. 0 FT4&TSH Panel 09/22/[address] [address] [phone] Thyroid Stimulating Hormone 2.220 uIU/ML Normal 0. 358-3.740 Free T4 0.88 ng/dL Normal 0.76-1.46 1 Units are mL/min/1.73 m2 Chronic Kidney Disease Staging per NKF: Stage I & II GFR >=60 Normal to Mildly Decreased Stage III GFR 30-59 Moderately Decreased Stage IV GFR 15-29 Severely Decreased Stage V GFR <15 Very Little GFR Left ESRD GFR <15 on SENIOR SOLUTIONS CONSULTANT Procedures Date Code Description Status 02/06/2021 18897 Office/Outpatient Established Mo d MDM 30-39 Min Completed 12/01/2020 88809 Preventive Visit Est 18-39 Yrs C ompleted 09/27/2020 81141 Office/Outpatient Established Mo d MDM 30-39 Min Completed Medical Devices Description No Information Available Encounters Type Date Location Provider Dx Diagnosis Office Visit 02/06/2021 3:00p [facility] Lauri Ford D.O. R59.0 Localized enlarged lymph nod es Office Visit 12/01/2020 3:00p [facility] Lauri Ford D.O. Z00.00 Encntr for general adult med ical exam w/o abnormal findings M35.00 Sicca syndrome, unspecified M05.70 Rheu arthritis w rheu factor of [facility] w/o org/sys involv E03.9 Hypothyroidism, unspecified Office Visit 09/27/2020 3:40p [facility] Lauri Ford D.O. E03.9 Hypothyroidism, unspecified M51.24 Other intervertebral disc di splacement, thoracic region Z79.899 Other [facility] (current) dr johnson therapy Z13.29 Encounter for [...] region Aviva Ford D.O. 09/27/2020 Z79.899 Other [facility] (current[facility] drug t herapy Aviva Ford D.O. 09/27/2020 Z13.29 Encounter for screen ing for other suspected endocrine disorder Aviva Ford D.O. 09/27/2020 Z13.0 Encounter for screen ing for diseases of the blood and blood- forming organs and certain disorders involving the immune mechanism Aviva oFrd D.O. 09/27/2020 Z13.220 Encounter for screening for lipo id disorders Aviva Fernandes D.O. Plan of Treatment Future Appointment(s):* 02/14/2021 11:40 am - Aviva Ford D.O. at [facility] * 12/05/2021 2:00 pm - Aviva Ford D.O. at [facility] 02/06/2021 - Aviva Ford D.O.* R59.0 Localized [...] to Reason for Referral Status Appt Date [facility] Rheumatology This is a 35 year old female who previously followed with Dr. Quintero and has not been taking medication for years for Rheumatoid Arthritis and Sjogren's. Please evaluate and treat. Majority of her pain is in her knees. Sent [address] [facility] [address] [place] [address] [phone]
--- OUTSIDE RECORDS SUMMARY | 2021-02-27 18:36 | CCD | Continuity of Care Document ---
Author Author Adriana FORDO. 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 AUT[facility] [phone] Victorino Holder M.D. AUTM [phone] Michael Sanchez MD AUTM [phone] [facility] Rheumatology AUTM [phone] Problems Active Problems Provider Date Hirsutism KAR Sparks Onset: 07/25/2017 Hypothyroidism KAR Sparks Onset: 07/25/2017 Rhabdomyolysis KAR Sparks Onset: 07/25/2017 Social History Type Date Description Comments Sex Unknown ETOH Use Occasionally consumes alcohol Tobacco Use Start: Unknown Patient has never smoked Recreational Drug Use Denies Drug Use Smoking Status Reviewed: 12/01/20 Patient has never smoked Exercise Type/Frequency Exercises regularly 3-5 times a wek Sun Exposure Uses sunscreen Seat Belt/Car Seat Always uses seat belt Allergies, Adverse Reactions, Alerts Active Allergies Criticality Reaction | Severity Comments Date NKDA Unable to assess criticality 07/23/2017 Peanut Unable to assess criticality 07/23/2017 Medications Active Medications SIG Qnty Indications Ordering Provide r Date Levothyroxine Sodium 75mcg Tablets take one tablet by mouth daily 90tabs E03.9 Aviva Ford D.O. 12/01/2020 Naproxen 500mg Tablets take one tab with food twice a day 60tabs Aviva Ford, D.O. 02/23 Vitamin D3 Ultra Strength 5000Unit Capsules 1 by mouth every day 90caps Aviva Ford D.O. 04/09/2018 Multivitamin Adult Tablets 1 by mouth every day Unknown Immunizations Description No Information Available Vital Signs Date Vital Result Comment 12/01/2020 2:55pm BP Systolic 118 mmHg BP Diastolic 72 mmHg Height 65.10 inches 5'5.10" Weight 140.25 lb BMI (Body Mass Index) 23.3 kg/m2 Heart Rate 86 /min Respiratory Rate 18 /min Body Temperature 99.1 F O2 % BldC Oximetry 98 % [place] Body Weight 125 lb 09/27/2020 3:52pm BP Systolic 118 mmHg BP Diastolic 78 mmHg Height 65.10 inches 5'5.10" Weight 142.00 lb BMI (Body Mass Index) 23.6 kg/m2 Respiratory Rate 18 /min Body Temperature 98.3 F O2 % BldC Oximetry 98 % [place] Body Weight 125 lb Results Test Acquired Date Facility Test Result H/L Range Note FT4&TSH Panel 11/22/2020 [facility] nter [address] [place] [address] [phone] Thyroid Stimulating Hormone 4.350 uIU/ML High 0. 358-3.740 Free T4 0.95 ng/dL Normal 0.76-1.46 Comprehensive Metabolic Profil 11/22/[address] [address] [phone] Glucose, Fasting 81 mg/dL Normal 70-100 Blood [...] 1.2 Normal 1.2-2.2 CBC With Differential 11/22/[address] [address] [phone] White Blood Count 6.9 10 Normal 4.0-10.0 [...] 36.0-66.0 Lymph % 20.1 % Low 24.0-44.0 [place] % 5.9 % Normal 2.0-8.0 Eos % 2.7 % Normal 0.0-3.0 Baso % 0.6 % Normal 0.0-1.0 Immature Granulocyte % 0.3 % Normal 0-3.0 Nucleated Red Blood Cell % 0.0 % Normal 0-0 Neutrophils # 4.9 10 Normal 1.5-8.5 Lymph # 1.4 10 Low 1.5-5.0 [place] # 0.4 10 Normal 0.0-0.8 Eos # 0.2 10 Normal 0.0-0.5 Baso # 0.0 10 Normal 0.0-0.2 Lipid Panel 11/22/2020 [facility] [place]ter [address] [place] [address] [phone] Triglycerides Level 73 mg/dL Normal <150 Cholesterol Level 214 mg/dL High <200 HDL Cholesterol 79 mg/dL Normal >40 LDL Cholesterol 120 mg/dL High <100 Non-HDL-C 135 mg/dL Normal Cholesterol Risk Ratio 2.708 Normal <5 Laboratory test finding 11/22/2020 [facility] [address] [place] [address] [phone] Total 25(Oh) Vitamin D 29.4 NG/ML Low 30.0-100. 0 FT4&TSH Panel 09/22/2020 [facility] nt [address] [place] [address] [id number] [phone] Thyroid Stimulating Hormone 2.220 uIU/ML Normal 0. 358-3.740 Free T4 0.88 ng/dL Normal 0.76-1.46 FT4&TSH Panel 07/19/2020 [facility] [address] [place] [address] [phone] Thyroid Stimulating Hormone 3.820 uIU/ML High 0. 358-3.740 Free T4 0.94 ng/dL Normal 0.76-1.46 1 Units are mL/min/1.73 m2 Chronic Kidney Disease Staging per NKF: Stage I & II GFR >=60 Normal to Mildly Decreased Stage III GFR 30-59 Moderately Decreased Stage IV GFR 15-29 Severely Decreased Stage V GFR <15 Very Little GFR Left ESRD GFR <15 on ORE TRIMMER Procedures Date Code Description Status 12/01/2020 53245 Preventive Visit Est 18-39 Yrs C ompleted 09/27/2020 13518 Office/Outpatient Established Mo d MDM 30-39 Min Completed 07/25/2020 93870 Office/Outpatient Established Lo w MDM 20-29 Min Completed Medical Devices Description No Information Available Encounters Type Date Location Provider Dx Diagnosis Office Visit 12/01/2020 3:00p Family [facility] w Lauri Ford DRdORd Z00.00 Encntr for general adult med ical exam w/o abnormal findings M35.00 Sicca syndrome, unspecified M05.70 Rheu arthritis w rheu factor of [facility] site w/o org/sys involv E03.9 Hypothyroidism, unspecified Office Visit 09/27/2020 3:40p [facility] Lauri Ford D.O. 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 E03.9 Hypothyroidism, unspecified Assessments Date Code Description Provider 12/01/2020 Z00.00 Encounter for genera l adult [...] region Aviva Ford D.O. 09/27/2020 Z79.899 Other fpc (current) drug t herapy Aviva Ford D.O. 09/27/2020 Z13.29 Encounter for screen ing for other suspected endocrine disorder Aviva Ford D.O. 09/27/2020 Z13.0 Encounter for screen ing for diseases of the blood and blood- forming organs and certain disorders involving the immune mechanism Aviva Ford D.O. 09/27/2020 Z13.220 Encounter for screening for lipo id disorders Aviva Fernandes D.O. 07/25/2020 E03.9 Hypothyroidism, unspecified Aviva Ford D.O. Plan of Treatment Future Appointment(s):* 12/05/2021 2:00 pm - Aviva Ford D.O. at [facility] * 02/07/2021 3:30 pm - Aviva Ford D.O. at [facility] Functional Status Description No Information Available Mental Status Description No Information Available Referrals Refer to Dr Reason for Referral Status Appt Date [facility] Rheumatology This is a 35 year old female who previously followed with Dr. Quintero and has not been taking medication for years for Rheumatoid Arthritis and Sjogren's. Please evaluate and treat. Majority of her pain is in her knees. Sent [address] [facility] [address] [place] [address] [phone]
--- OUTSIDE RECORDS SUMMARY | 2021-02-27 18:36 | CCD | Continuity of Care Document ---
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 AUT[facility]M [phone] Victorino Holder M.D. AUTM [phone] Michael Sanchez MD AUTM [phone] Problems Active Problems Provider Date Hirsutism KAR [...] by mouth daily 90tabs E03.9 Aviva Ford D.ORd 12/01/2020 Naproxen 500mg Tablets take one tab with food twice a day 60tabs Miriam Mccain.ORd 02/23 Vitamin D3 Ultra Strength 5000Unit Capsules 1 by mouth every day joel Ford D.O. 04/09/2018 Multivitamin Adult Tablets 1 [...] F O2 % BldC Oximetry 98 % [place] Body Weight 125 lb 09/27/2020 3:52pm BP Systolic 118 mmHg BP Diastolic 78 mmHg Height 65.10 inches 5'5.10" Weight 142.00 lb BMI (Body Mass Index) 23.6 kg/m2 Respiratory Rate 18 /min Body Temperature 98.3 F O2 % BldC Oximetry 98 % [place] Body Weight 125 lb Results Test Acquired Date Facility Test Result H/L Range Note FT4&TSH Panel 11/22/2020 [facility] nter [address] [place] [address] [phone] Thyroid Stimulating Hormone 4.350 uIU/ML High 0. 358-3.740 Free T4 0.95 ng/dL Normal 0.76-1.46 Comprehensive Metabolic Profil 11/22/[address] [address] [phone] Glucose, Fasting 81 mg/dL Normal 70-100 Blood [...] 1.2 Normal 1.2-2.2 CBC With Differential 11/22/[address] [id number] [phone] White Blood Count 6.9 10 Normal 4.0-10.0 [...] 36.0-66.0 Lymph % 20.1 % Low 24.0-44.0 [place] % 5.9 % Normal 2.0-8.0 Eos % 2.7 % Normal 0.0-3.0 Baso % 0.6 % Normal 0.0-1.0 Immature Granulocyte % 0.3 % Normal 0-3.0 Nucleated Red Blood Cell % 0.0 % Normal 0-0 Neutrophils # 4.9 10 Normal 1.5-8.5 Lymph # 1.4 10 Low 1.5-5.0 [place] # 0.4 10 Normal 0.0-0.8 Eos # 0.2 10 Normal 0.0-0.5 Baso # 0.0 10 Normal 0.0-0.2 Lipid Panel 11/22/2020 [facility] nter [address] [place] [address] [phone] Triglycerides Level 73 mg/dL Normal <150 Cholesterol Level 214 mg/dL High <200 HDL Cholesterol 79 mg/dL Normal >40 LDL Cholesterol 120 mg/dL High <100 Non-HDL-C 135 mg/dL Normal Cholesterol Risk Ratio 2.708 Normal <5 Laboratory test finding 11/22/[address] [place] [address] [phone] Total 25(Oh) Vitamin D 29.4 NG/ML Low 30.0-100. 0 FT4&TSH Panel 09/22/2020 [facility] nter [address] [place] [address] [phone] Thyroid Stimulating Hormone 2.220 uIU/ML Normal 0. 358-3.740 Free T4 0.88 ng/dL Normal 0.76-1.46 FT4&TSH Panel 07/19/2020 [facility] [address] [place] [address] [phone] Thyroid Stimulating Hormone 3.820 uIU/ML High 0. 358-3.740 Free T4 0.94 ng/dL Normal 0.76-1.46 1 Units are mL/min/1.73 m2 Chronic Kidney Disease Staging per NKF: Stage I & II GFR >=60 Normal to Mildly Decreased Stage III GFR 30-59 Moderately Decreased Stage IV GFR 15-29 Severely Decreased Stage V GFR <15 Very Little GFR Left ESRD GFR <15 on [employer] Procedures Date Code Description Status 12/01/2020 59514 Preventive Visit Est 18-39 Yrs C ompleted 09/27/2020 69699 Office/Outpatient Established Mo d MDM 30-39 Min Completed 07/25/2020 44862 Office/Outpatient Established Lo w MDM 20-29 Min Completed Medical Devices Description No Information Available Encounters Type Date Location Provider Dx Diagnosis Office Visit 12/01/2020 3:00p Family [facility] Lauri Ford D.O. Z00.00 Encntr for general adult med ical exam w/o abnormal findings M35.00 Sicca syndrome, unspecified M05.70 Rheu arthritis w rheu factor of [facility] site w/o org/sys involv E03.9 Hypothyroidism, unspecified Office Visit 09/27/2020 3:40p Family [facility] Lauri Ford D.O. E03.9 Hypothyroidism, unspecified M51.24 Other intervertebral disc di splacement, thoracic region Z79.899 Other senior care (current) dr johnson therapy Z13.29 Encounter for screening for oth suspected endocrine disorder Z13.0 Encntr screen for dis of the bld/bld-form org/immun mechn Z13.220 Encounter for screening for lipoid disorders Office Visit 07/25/2020 3:40p [facility] Aviva Ford D.O. E03.9 Hypothyroidism, unspecified Assessments [...] thoracic region Ignacio MccainORd 09/27/2020 Z79.899 Other senior care (current) drug t herapy Ignacio MccainORd 09/27/2020 Z13.29 Encounter for screen ing for [...] 2:00 pm - Aviva Ford D.O. at [facility] * 02/07/2021 3:30 pm - Aviva Ford D.O. at [facility] Functional Status Description No Information Available Mental Status Description No Information Available Referrals Refer to Dr Reason for Referral Status Appt Date [facility] Rheumatology This is a 35 year old female who previously followed with Dr. Quintero and has not been taking medication for years for Rheumatoid Arthritis and Sjogren's. Please evaluate and treat. Majority of her pain is in her knees. Created [address] [place] [address] [phone]
--- OUTSIDE RECORDS SUMMARY | 2021-02-27 18:36 | CCD ---
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 Name Role Phone Joseph Qiu Unavailable Unavailable CHANEL-MORALES, MANNY DO Unavailable Unavailable CHANEL-MORALES, MANNY DO Unavailable Unavailable CHANEL-MORALES, MANNY DO Unavailable Unavailable CHANEL-MORALES, MANNY DO Unavailable Unavailable CHANEL-MORALES, MANNY DO Unavailable Unavailable CHANEL-MORALES, MANNY DO Unavailable Unavailable CHANEL-MORALES, MANNY DO Unavailable Unavailable CHANEL-MORALES, MANNY DO Unavailable Unavailable CHANEL-MORALES, MANNY DO Unavailable Unavailable CHANEL-MORALES, MANNY DO Unavailable Unavailable CHANEL-MORALES, MANNY DO Unavailable Unavailable CHANEL-MORALES, MANNY DO Unavailable Unavailable CHANEL-MORALES, MANNY DO Unavailable Unavailable CHANEL-MORALES, MANNY DO Unavailable Unavailable CHANEL-MORALES, MANNY DO Unavailable Unavailable CHANEL-MORALES, MANNY DO Unavailable Unavailable CHANEL-MORALES, MANNY DO Unavailable Unavailable CHANEL-MORALES, MANNY DO Unavailable Unavailable CHANEL-MORALES, MANNY DO Unavailable Unavailable CHANEL-MORALES, MANNY DO Unavailable Unavailable CHANEL-MORALES, MANNY DO Unavailable Unavailable CHANEL-MORALES, MANNY DO Unavailable Unavailable CHANEL-MORALES, MANNY DO Unavailable Unavailable CHANEL-MORALES, MANNY DO Unavailable Unavailable CHANEL-MORALES, MANNY DO Unavailable Unavailable CHANEL-MORALES, MANNY DO Unavailable Unavailable CHANEL-MORALES, MANNY DO Unavailable Unavailable CHANEL-MORALES, MANNY DO Unavailable Unavailable CHANEL-MORALES, MANNY DO Unavailable Unavailable CHANEL-MORALES, MANNY DO Unavailable Unavailable CHANEL-MORALES, MANNY DO Unavailable Unavailable CHANEL-MORALES, MANNY DO Unavailable Unavailable CHANEL-MORALES, MANNY DO Unavailable Unavailable CHANEL-MORALES, MANNY DO Unavailable Unavailable CHANEL-MORALES, MANNY DO Unavailable Unavailable CHANEL-MORALES, MANNY DO Unavailable Unavailable CHANEL-MORALES, MANNY DO Unavailable Unavailable CHANEL-MORALES, MANNY DO Unavailable Unavailable CHANEL-MORALES, MANNY DO Unavailable Unavailable CHANEL-MORALES, MANNY DO Unavailable Unavailable CHANEL-MORALES, MANNY DO Unavailable Unavailable CHANEL-MORALES, MANNY DO Unavailable Unavailable CHANEL-MORALES, MANNY DO Unavailable Unavailable CHANEL-MORALES, MANNY DO Unavailable Unavailable CHANEL-MORALES, MANNY DO Unavailable Unavailable CHANEL-MORALES, MANNY DO Unavailable Unavailable CHANEL-MORALES, MANNY DO Unavailable Unavailable CHANEL-MORALES, MANNY DO Unavailable Unavailable CHANEL-MORALES, MANNY DO Unavailable Unavailable CHANEL-MORALES, MANNY DO Unavailable Unavailable CHANEL-MORALES, MANNY DO Unavailable Unavailable CHANEL-MORALES, MANNY DO Unavailable Unavailable CHANEL-MORALES, MANNY DO Unavailable Unavailable CHANEL-MORALES, MANNY DO Unavailable Unavailable CHANEL-MORALES, MANNY DO Unavailable Unavailable CHANEL-MORALES, MANNY DO Unavailable Unavailable CHANEL-MORALES, MANNY DO Unavailable Unavailable CHANEL-MORALES, MANNY DO Unavailable Unavailable CHANEL-MORALES, MANNY DO Unavailable Unavailable CHANEL-MORALES, MANNY DO Unavailable Unavailable CHANEL-MORALES, MANNY DO Unavailable Unavailable CHANEL-MORALES, MANNY DO Unavailable Unavailable CHANEL-MORALES, MANNY DO Unavailable Unavailable CHANEL-MORALES, MANNY DO Unavailable Unavailable CHANEL-MORALES, MANNY DO Unavailable Unavailable CHANEL-MORALES, MANNY DO Unavailable Unavailable CHANEL-MORALES, MANNY DO Unavailable Unavailable CHANEL-MORALES, MANNY DO Unavailable Unavailable CHANEL-MORALES, MANNY DO Unavailable Unavailable CHANEL-MORALES, MANNY DO Unavailable Unavailable CHANEL-MORALES, MANNY DO Unavailable Unavailable CHANEL-MORALES, MANNY DO Unavailable Unavailable CHANEL-MORALES, MANNY DO Unavailable Unavailable CHANEL-MORALES, MANNY DO Unavailable Unavailable CHANEL-MORALES, MANNY DO Unavailable Unavailable CHANEL-MORALES, MANNY DO Unavailable Unavailable CHANEL-MORALES, MANNY DO Unavailable Unavailable CHANEL-MORALES, MANNY DO Unavailable Unavailable CHANEL-MORALES, MANNY DO Unavailable Unavailable CHANEL-MORALES, MANNY DO Unavailable Unavailable CHANEL-MORALES, MANNY DO Unavailable Unavailable CHANEL-MORALES, MANNY DO Unavailable Unavailable CHANEL-MORALES, MANNY DO Unavailable Unavailable CHANEL-MORALES, MANNY DO Unavailable Unavailable CHANEL-MORALES, MANNY DO Unavailable Unavailable Re-disclosure Warning The records that you are about to access may contain information from federally-assisted alcohol or drug abuse programs. If such information is present, then the following federally mandated warning applies: This information has been disclosed to you from records protected by federal confidentiality rules (42 CFR part 2). The federal rules prohibit you from making any further disclosure of this information unless further disclosure is expressly permitted by the written consent of the person to whom it pertains or as otherwise permitted by 42 CFR part 2. A general authorization for the release of medical or other information is NOT sufficient for this purpose. The Federal rules restrict any use of the information to criminally investigate or prosecute any alcohol or drug abuse patient.The records that you are about to access may contain highly sensitive health information, the redisclosure of which is protected by Article 27-F of the [facility] Public Health law. If you continue you may have access to information: Regarding HIV / AIDS; Provided by facilities licensed or operated by the [facility] Office of Mental Health; or Provided by the [facility] Office for People With Developmental Disabilities. If such information is present, then the following [facility] mandated warning applies: This information has been disclosed to you from confidential records which are protected by state law. State law prohibits you from making any further disclosure of this information without the specific written consent of the person to whom it pertains, or as otherwise permitted by law. Any unauthorized further disclosure in violation of state law may result in a fine or snf sentence or both. A general authorization for the release of medical or other information is NOT sufficient authorization for further disc losure. Family History Family Member Name Family Member Gender Family Member Status Date o f Status Description Data Source(s) Unknown Unknown Problem [facility] ([facility]) Unknown Male Problem MEDENT ([facility]) Unknown Unknown Problem [facility] ([facility]) Encounters Encounter Providers Location Date Indications Data Source(s ) Outpatient Attender: MANNY FORD [facility] 02/14/2021 10:40:00 AM EST [facility] ([facility]) Outpatient Attender: MANNY FORD [facility] 02/06/2021 02:00:00 PM EST [facility] ([facility]) Outpatient Admitter: Alexander Bernabeer: Alexander Qiu 02/01/2021 12:00:00 AM EST Enlarged lymph nodes, unspecified [facility] Enlarged lymph nodes, unspecified Outpatient [address] [facility] [address] 01/24/2021 12:00:00 AM EDT eCW1 ([facility]) Outpatient Attender: MANNY FORD [facility] 12/01/2020 03:00:00 PM EDT [facility] ([facility]) Outpatient [address] [facility] [address] 11/14/2020 12:00:00 AM EDT eCW1 ([facility]) Unknown [address] [facility] [address] 11/14/2020 12:00:00 AM EDT eCW1 ([facility]) Outpatient Attender: MANNY FORD [facility] 09/27/2020 03:40:00 PM EDT MEDENT ([facility]) Outpatient Attender: MANNY FORD [facility] 07/25/2020 03:40:00 PM EDT MEDENT ([facility]) Outpatient Attender: MANNY FORD [facility] 04/21/2020 02:30:00 PM EST MEDENT ([facility]) Outpatient Attender: MANNY FORD [facility] 01/25/2020 03:00:00 PM EST MEDENT ([facility]) Medications Medication Brand Name Start Date Product Form Dose Route Admi nistrative Instructions Pharmacy Instructions Status Indications Reaction Description Data Source(s) 10 mg 02/09/2021 12:00:00 AM EST tablet 37 TAKE FOUR TABLETS BY MOUTH EVERY DAY FOR 5 DAYS, THEN TAKE THREE TABLETS BY MOUTH EVERY DAY FOR 3 DAYS, THEN TAKE TWO TABLETS BY MOUTH EVERY DAY FOR 2 DAYS, THEN TAKE ONE TABLET BY MOUTH EVERY DAY FOR 2 DAYS, THEN STOP TAKE FOUR TABLETS BY MOUTH EVERY DAY FOR 5 DAYS, THEN TAKE THREE TABLETS BY MOUTH EVERY DAY FOR 3 DAYS, THEN TAKE TWO TABLETS BY MOUTH EVERY DAY FOR 2 DAYS, THEN TAKE ONE TABLET BY MOUTH EVERY DAY FOR 2 DAYS, THEN STOP SOLD: 02/09/2021 [facility] Prednisone 10 MG Oral Tablet Prednisone 02/09/2021 12:00:00 AM EST active MEDENT ([facility]) Amoxicillin 875 MG / Clavulanate 125 MG Oral Tablet Am oxicillin/Clavulanate Potassium 02/06/2021 12:00:00 AM EST ORAL active MEDENT ([facility]) Amoxicillin 875 MG / Clavulanate 125 MG Oral Tablet 87 5-125 mg AMOXICILLIN/POTASSIUM CLAV 02/06/2021 12:00:00 AM EST tablet 20 TAKE ONE TABLET BY MOUTH TWICE A DAY FOR 10 DAYS TAKE ONE TABLET BY MOUTH TWICE A DAY FOR 10 DAYS SOLD: 02/06/2021 [facility] Ultrasound Guided Biopsy Of Right Enlarged Lymph Nodes 02/01/2021 12:00:00 AM EST active MEDENT ([facility]) 75 mcg 12/02/2020 12:00:00 AM EDT tablet 90 TAKE ONE TABLET BY MOUTH EVERY DAY TAKE ONE TABLET BY MOUTH EVERY DAY SOLD: 12/09/2020 [facility] Levothyroxine Sodium 0.075 MG Oral Tablet Levothyroxine Sodi um 12/01/2020 12:00:00 AM EDT ORAL active M EDENT ([facility]) hydroquinone 40 MG/ML Topical Cream Hydroquinone 4 % Hydroqu inone 4 % 11/14/2020 12:00:00 AM EDT 1.0 {application} suspended Hydroquinone 4 % eCW1 ([facility]) hydroquinone 40 MG/ML Topical Cream Hydroquinone 4 % Hydroqu inone 4 % 11/14/2020 12:00:00 AM EDT 1.0 {application} active Hydroquinone 4 % eCW1 ([facility]) hydroquinone 40 MG/ML Topical Cream Hydroquinone 4 % Hydroqu inone 4 % 11/14/2020 12:00:00 AM EDT 1.0 {application} active Hydroquinone 4 % eCW1 ([facility]) 50 mcg 07/26/2020 12:00:00 AM EDT tablet 90 TAKE ONE TABLET BY MOUTH EVERY MORNING ON AN EMPTY STOMACH TAKE ONE TABLET BY MOUTH EVERY MORNING O N AN EMPTY STOMACH SOLD: 07/26/2020 [facility] 25 mcg 05/30/2020 12:00:00 AM EST tablet 90 TAKE ONE TABLET BY MOUTH EVERY DAY TAKE ONE TABLET BY MOUTH EVERY DAY SOLD: 09/06/2020 [facility] 25 mcg 05/30/2020 12:00:00 AM EST tablet 90 TAKE ONE TABLET BY MOUTH EVERY DAY TAKE ONE TABLET BY MOUTH EVERY DAY SOLD: 05/31/2020 [facility] 50 mcg 04/27/2020 12:00:00 AM EST tablet 45 TAKE 1 TABLET BY MOUTH EVERY OTHER MORNING ALTERNATING WITH 25MCG TAKE 1 TABLET BY MOUTH EVERY OTHER MORNI NG ALTERNATING WITH 25MCG SOLD: 04/27/2020 [facility] 50 mcg 04/27/2020 12:00:00 AM EST tablet 45 TAKE 1 TABLET BY MOUTH EVERY OTHER MORNING ALTERNATING WITH 25MCG TAKE 1 TABLET BY MOUTH EVERY OTHER MORNI NG ALTERNATING WITH 25MCG SOLD: 11/07/2020 [facility] Levothyroxine Sodium 0.05 MG Oral Tablet Levothyroxine Sodiu m 04/21/2020 12:00:00 AM EST ORAL active M EDENT ([facility]) Naproxen 500 MG Oral Tablet Naproxen 03/15/2020 12:00:00 AM EST active MEDENT ([facility]) 25 mcg 12/22/2019 12:00:00 AM EDT tablet 90 TAKE ONE TABLET BY MOUTH EVERY DAY TAKE ONE TABLET BY MOUTH EVERY DAY SOLD: 03/04/2020 [facility] Insurance Providers Payer name Policy type / Coverage type Policy ID Covered republican ID Covered republican's relationship to willett Policy [place] Plan Information [place] 306/806 [id number] SP [id number] [place] PPO 302/307 [id number] SP [id number] [place] 306/806 [id number] SP [id number] EXCELLUS BCBS [id number] Heena VYS [id number] EXCELLUS H [id number] Self [id number] [place] PPO 302/307 [id number] SP [id number] BS [place] Medigap Part B [id number] Self [id number] [place] 306/806 [id number] SP [id number] [place] PPO 302/307 [id number] SP [id number] BS [place] Commercial [id number] Self [id number] [place] PPO 302/307 [id number] SP [id number] NINA CLAIMS ADMIN NCA WC W [id number] Empl [id number] [place] Claims (WC) Workers Compensation [id number] Self [id number] Nai [facility] Health Maintenance Organization (HMO) [id number] Self Nai [employer] Commercial [id number] Family Dependent BS Of [place] Commercial [id number] Family Dependent BS [place] Commercial [id number] Self Nai [facility] U/W Commercial [id number] Self [id number] [id number] PMA MANAGEMENT [facility]I [facility] [id number] SP [id number] PMA MANAGEMENT [facility]I [facility] SP EXCELLUS BCBS B [id number] S [id number] EXCELLUS BC-BS PPO 306 [id number] SP [id number] Nai [facility] U/W Commercial [id number] Self [id number] [facility] Health Maintenance Organization (HMO) [id number] Self [id number] CASSANDRA CLAIM ADMIN WORK COMP [id number] SP [id number] Nai [facility] U[facility] Commercial [id number] Self [id number] EXCELLUS BC-BS PPO [id number] SP [id number] BCBS [facility] Other 0 [id number] Self 0 Jeniferus [facility] U/W Commercial [id number] Self [id number] [facility] Health [facility] Organization (HMO) [id number] Self [id number] Excellus [facility] Health Maintenance Organization ([facility] [place] [id number] Self [id number] Problems, Conditions, and Diagnoses Code Display Name Description Problem Type Effective Dates Data Source(s) R59.9 Enlarged lymph nodes, unspecified Enlarged lymph nodes, unspecified Diagnosis 02/01/2021 11:19:00 AM EST [facility] M35.00 [id number] Sjogren's syndrome, with unspecified orga n involvement Problem 12/05/2020 12:00:00 AM EDT eCW1 ([facility]) Surgeries/Procedures Procedure Description Date Indications Data Source(s) OFFICE OUTPATIENT VISIT 15 MINUTES 02/14/2021 12:00:00 AM EST MEDENT ([facility]) OFFICE OUTPATIENT VISIT 25 MINUTES 02/06/2021 12:00:00 AM EST MEDENT ([facility]) PERIODIC PREVENTIVE MED EST PATIENT 18-39 YRS 12/02/19 12:00:00 AM EDT MEDENT ([facility]) OFFICE OUTPATIENT VISIT 25 MINUTES 09/27/2020 12:00:00 AM EDT MEDENT ([facility]) OFFICE OUTPATIENT VISIT 15 MINUTES 07/25/2020 12:00:00 AM EDT MEDENT ([facility]) OFFICE OUTPATIENT VISIT 15 MINUTES 04/21/2020 12:00:00 AM EST MED[facility] ([facility]) Results ID Date Data Source [id number] 02/21/2021 09:54:00 AM EST [facility] Name Value Range Interpretation Code Description Data Funmilayo rce(s) Supporting Document(s) SARS coronavirus 2 RdRp gene Covid_negative [facility] and reported by [facility]. ID Date Data Source [id number] 02/14/2021 09:00:00 AM EST [facility] Name Value Range Interpretation Code Description Data Funmilayo rce(s) Supporting Document(s) SARS coronavirus 2 RdRp gene Covid_negative [facility] This lab was ordered by [facility] and reported by [facility]. ID Date Data Source [id number] 02/07/2021 10:01:00 AM EST [facility] Name Value Range Interpretation Code Description Data Funmilayo rce(s) Supporting Document(s) SARS coronavirus 2 RdRp gene Covid_negative [facility] This lab was ordered by [facility] and reported by [facility]. ID Date Data Source [id number] 02/06/2021 03:54:00 PM EST MEDENT ([facility]) Name Value Range Interpretation Code Description Data Funmilayo rce(s) Supporting Document(s) Creatine kinase [Enzymatic activity/volume] in Serum or Plasma 3 93 U/L 26-192 Above high normal MEDENT ([facility]) ID Date Data Source [id number] 02/06/2021 03:54:00 PM EST MED[facility] ([facility]) Name Value Range Interpretation Code Description Data Funmilayo rce(s) Supporting Document(s) Anti Double Strand-Dna AB 3 IU/ml 0-9 Normal (applies to no n-numeric results) [facility] ([facility]) <content>Negative <5</content>
<content>Equivocal 5 - 9</content>
<content>Positive >9</content>
<content></content> Antinuclear Antibodies Direct Laboratory test result Abnormal (applies to non- numeric results) [facility] ([facility]) TITLE LAWYER Antibodies Laboratory test result 0.0-0.9 Normal (a pplies to non-numeric results) [facility] ([facility]) Sjogren's Anti SS-A 6.4 AI 0.0-0.9 Above high normal MEDENT ([facility]) [place] Antibodies Laboratory test result 0.0-0.9 Normal ( applies to non-numeric results) [facility] ([facility]) Sjogren's Anti SS-B 0.2 AI 0.0-0.9 Normal (applies to non-nume annie results) MED[facility] ([facility]) Grant Comment Laboratory test result Normal (applies to non- numeric results) [facility] ([facility]) . Autoantibody Disease Association Condition Frequency -------- [...] (anti-[place]) SLE 15 - 30% ------- --------- TITLE LAWYER Mixed Connective Tissue Disease 95% (U1 nRNP, SLE 30 - 50% anti-ribonucleoprotein) Polymyositis and/or Dermatomyositis 20% -------- --------- Scl-70 (antiDNA Scleroderma (diffuse) 20 - 35% topoisomerase) Crest 13% -------- --------- Hanna-1 Polymyositis and/or Dermatomyositis 20 - 40% -------- --------- Centromere B Scleroderma - Crest variant 80% Performed at: [facility] [id number] Retail Wireless Associate: Torie Bobo MD, Phone: [phone] Performed at: [facility] [address] [id number] Retail Wireless Associate: Vladimir Carrera MD, Phone: [phone] ID Date Data Source [id number] 02/06/2021 03:54:00 PM EST MEDENT ([facility]) Name Value Range Interpretation Code Description Data Funmilayo rce(s) Supporting Document(s) Rheumatoid factor [Units/volume] in Serum or Plasma Laboratory t est result Normal (applies to non-numeric results) [facility] ([facility]) Cyclic citrullinated peptide IgG Ab [Units/volume] in Serum or Plasma 6 units 0-19 Normal (applies to non-numeric results) [facility] ([facility]) <content>Negative <20</con tent>
<content>Weak positive 20 - 39</content>
<content>Moderate positive 40 - 59</content>
<content>Strong positive >59</content>
<content></content> ID Date Data Source [id number] 02/06/2021 03:54:00 PM EST MEDENT ([facility]) Name Value Range Interpretation Code Description Data Funmilayo rce(s) Supporting Document(s) Thyroid Stimulating Hormone 0.968 uIU/ML 0.358-3.740 Norm al (applies to non- numeric results) [facility] ([facility]) Free T4 1.10 ng/dL 0.76-1.46 Normal (applies to non-numeric resul ts) [facility]) ID Date Data Source [id number] 02/06/2021 03:54:00 PM EST MEDENT ([facility]) Name Value Range Interpretation Code Description Data Funmilayo rce(s) Supporting Document(s) Lyme Disease IgG/IgM Antibodie Laboratory test result 0.00-0.90 Normal (applies to non-numeric results) [facility] ([facility]) <content>Negative <0.91</content >
<content>Equivocal 0.91 - 1.09</content>
<content>Positive >1.09</content>
<content></content> Lyme Disease IgM Ab Quantitati Laboratory test result 0.00-0.79 Normal (applies to non-numeric results) [facility] ([facility]) <content>Negative <0.80</content >
<content>Equivocal 0.80 - 1.19</content>
<content>Positive >1.19</content>
<content>.</content>
<content>IgM levels may peak at 3-6 weeks post infection, then</content>
<content>gradually decline.</content>
<content></content> ID Date Data Source [id number] 02/06/2021 03:54:00 PM EST MEDENT ([facility]) Name Value Range Interpretation Code Description Data Funmilayo rce(s) Supporting Document(s) C reactive protein [Mass/volume] in Serum or Plasma by High sensitivity method Laboratory test result 0.00-0.30 Normal (applies to non-numeric results) [facility] ([facility]) Erythrocyte sedimentation rate by Westergren method 7 mm/hr 0-20 Normal (applies to non-numeric results) [facility] ([facility]) Lactate dehydrogenase [Enzymatic activit y/volume] in Serum or Plasma by Lactate to pyruvate reaction 187 U/L 84-246 Normal (applies to non-numeric re sults) [facility] ([facility]) ID Date Data Source [id number] 02/06/2021 03:54:00 PM EST MED[facility] ([facility]) Name Value Range Interpretation Code Description Data Funmilayo rce(s) Supporting Document(s) White Blood Count 7.6 10 4.0-10.0 Normal (applies to non-numeri c results) [facility] ([facility]) Red Blood Count 4.33 10 4.00-5.40 Normal (applies to non-numeric results) [facility] ([facility]) Hematocrit 39.9 % 36.0-47.0 Normal (applies to non-numeric resul ts) [facility] ([facility]) Hemoglobin 13.2 g/dL 12.0-15.5 Normal (applies to non-numeric resul ts) [facility] ([facility]) Mean Corpuscular Volume 92.1 fl 80.0-96.0 Normal ( applies to non-numeric results) [facility] ([facility]) Mean Corpuscular Hemoglobin 30.5 pg 27.0-33.0 Norm al (applies to non-numeric results) [facility] ([facility]) Mean Corpuscular HGB Conc 33.1 g/dL 32.0-36.5 Normal (applies to non-numeric results) [facility] ([facility]) Red Cell Distribution Width 11.9 % 11.5-14.5 Norm al (applies to non-numeric results) [facility] ([facility]) Platelet Count, Automated 260 10 150-450 Normal (applies to non-numeric results) [facility] ([facility]) Neutrophils % 82.5 % 36.0-66.0 Above high normal [facility] ([facility]) Lymph % 13.4 % 24.0-44.0 Below low normal MED[facility] ( [facility]) [place] % 3.5 % 2.0-8.0 Normal (applies to non-numeric resul ts) [facility] ([facility]) Baso % 0.1 % 0.0-1.0 Normal (applies to non-numeric resul ts) [facility] ([facility]) Eos % 0.1 % 0.0-3.0 Normal (applies to non-numeric resul ts) [facility] ([facility]) Immature Granulocyte % 0.4 % 0-3.0 Normal (applies to non-n umeric results) [facility] ([facility]) Neutrophils # 6.3 10 1.5-8.5 Normal (applies to non-numeric re sults) [facility] ([facility]) Nucleated Red Blood Cell % 0.0 % 0-0 Normal (applies to n on-numeric results) [facility] ([facility]) Lymph # 1.0 10 1.5-5.0 Below low normal [facility] ( [facility]) [place] # 0.3 10 0.0-0.8 Normal (applies to non-numeric resul ts) [facility] ([facility]) Baso # 0.0 10 0.0-0.2 Normal (applies to non-numeric resul ts) [facility] ([facility]) Eos # 0.0 10 0.0-0.5 Normal (applies to non-numeric resul ts) [facility] ([facility]) ID Date Data Source [id number] 02/03/2021 07:21:00 AM EST [facility] ([facility]) Name Value Range Interpretation Code Description Data Funmilayo rce(s) Supporting Document(s) Free T4 1.16 ng/dL 0.76-1.46 Normal (applies to non-numeric resul ts) MEDENT ([facility]) Thyroid Stimulating Hormone 2.900 uIU/ML 0.358-3.740 Norm al (applies to non- numeric results) [facility] ([facility]) ID Date Data Source [id number] 02/01/2021 03:15:00 PM EST MED[facility] ([facility]) Name Value Range Interpretation Code Description Data Funmilayo rce(s) Supporting Document(s) Surgical pathology study Laboratory test result [facility] FINAL DIAGNOSIS Lymph node, right subclavicular, needle [...] -SV 02/02/20211336 PRELIMINARY DIAGNOSIS 02/06/2021819 Signed ALEXANDER QIU MD 02/03/2021 1230 (Prelim) Signed ALEXANDER QIU MD 02/08/2021 0814 ID Date Data Source [id number] 02/03/2021 03:29:00 PM EST [facility] Hematopathology ReportName: SHAMAR GOODMRN: [id number] Number: [id number] Date: 02/01/2021 14:56Received Date: 02/02/2021 16:08Physician(s): ALEXANDER QIU MD VYAS, SHIKHAR G,MDSpecimen(s) ReceivedA: Core Biopsy, Flow Cytometry; RECEIVED RIGHT [facility]CLAVIC[facility]BI[facility] HistoryLymphadenopathy of right neck.TEST REQUESTED/PERFORMED: Flow cytometry analysis. DiagnosisFlow cytometry, lymph node, right supraclavicular, biopsy: Reactivelymphoid subsets (CD4/CD8 ratio = 10). No immunophenotypic evidence ofnon-Hodgkin lymphoma. Final diagnosis deferred to biopsy.Electronically Signed By Princess Couch MD AttendingPathologist 02/03/2021 15:29:17 ProceduresFlow Cytometry Date Ordered:02/02/2021 Status: Signed Out02/03/2021 InterpretationA cytospin shows: Predominantly small to medium sized lymphocytes.Lymphoma [place] Panel for Devorah Wright 21 [id number] following markers were assayed: CD45 (gate), CD2, CD3, CD4, CD5, CD7,CD8, CD10,CD19, CD20, [place], and Lambda.Events :420NOTE: Routinely a minimum of 50,000 events are collected in each paneltube. Due to samplecellularity and/or processing this number was not achievable for t hissample.No viability performed due to low cellularity.Flow Cytometry Differential (CD45/SSC)Lymphocyte [place]: 0%CD45 dim [place]: 0%Monocyte [place]: 0%Granulocyte [place]: 6%Nucleated/Erythroid [place]: 1%The lymphocyte gate showsB- Cells (CD19): 46%[place]/Lambda Ratio: 2.2T-Cells (CD3): 54%CD4/CD8 Ratio: 10.0Results: (expressed as % of lymphocyte gate)B-cell Markers: CD19 = 46, CD19/CD5 = 7Gated on CD19+ cells only: CD19/[place] = 32, CD19/Lambda = 14, CD19/CD10 =7,CD19/CD20 = 46T-cell Markers: CD3 = 54, CD5 = 57Gated on CD3+ cells only: CD3/CD2 = 54, CD3/CD4 = 43, CD3/CD8 = 7, CD3/CD7= 54Results-CommentsA limited flow cytometry panel was performed due to low cellularity andshows that the gated population of lymphocytes consist predominantly of Tcells with normal expression of weinberg T-cell markers and an increasedCD4/CD8 ratio, and polyclonal B cells. Procedure Electronically Signed By:Princess Couch MD02/03/2021 This report may include one or more immunohistochemical stain/fluorochromeconjugated monoclonal antibody results that use analyte specific reagents.All positive and negative controls have been reviewed by the attendingpathologist and are satisfactory. The tests were developed and theirper formance characteristics determined by [facility] Pathology department.They have not been cleared or approved by the US Food and DrugAdministration. The FDA has determined that such clearance or approval isnot necessary. Name Value Range Interpretation Code Description Data Funmilayo rce(s) Supporting Document(s) ID Date Data Source [id number] 02/07/2021 04:12:00 PM [facility] Hematopathology ReportName: SHAMAR GOODMRN: [id number] Number: [id number] Date: 02/01/2021 00:00Received Date: 02/03/2021 13:42Physician(s): ALEXANDER QIU,ALEXANDER BUENO,MDSpecimen(s) ReceivedA: Slides received for consultation, KB; RECEIVED 7 SLIDES (6 UNSTAINED)AND 1 BLOCK OF RIGHT SUBCLAVICULAR LYMPH NODE LABELED [id number] FROM [facility] INCONSULTATION WITH DR Salesical HistoryLymphadenopathy of right neckTEST REQUESTED/PERFORMED: Hematopathology Consultation DiagnosisLymph node, right subclavicular, core biopsy: B-cell hyperplasia, and noevidence of lymphoma. Excisional biopsy could be helpful iflymphadenopathy persists.Augusto Barbosa M.D.;Resident PathologistElectronically Signed By Brittani Tovar M.D. Attending Pathologist 02/07/2021 16:12:21The attending pathologist named above attests that he/she has personallyreviewed the relevant preparation(s) for the specimen(s) and rendered thefinal diagnosis. Microscopic DescriptionCores of lymph node show mostly beqlz-ww-twgzaa sized polymorphouslymphoid cells. Many small vessels and small fibrotic areas are seen. Asmall reactive-appearing germinal center is seen. Immunohistochemical staining shows a mixture of B (CD20) and T cells(CD3). CD20 hurd a few B-nodules.All stains performed at [facility]. ProceduresThis report may include one or more immunohistochemical stain/fluorochromeconjugated monoclonal antibody results that use analyte specific reagents.All positive and negative controls have been reviewed by the attendingpathologist and are satisfactory. The tests were developed and theirperformance characteristics determined by [facility] Pathology department.They have not been cleared or approved by the US Food and DrugAdministration. The FDA has determined that such clearance or approval isnot necessary. Name Value Range Interpretation Code Description Data Funmilayo rce(s) Supporting Document(s) ID Date Data Source [id number] 01/31/2021 09:58:00 AM EST [facility] Name Value Range Interpretation Code Description Data Funmilayo rce(s) Supporting Document(s) SARS coronavirus 2 RdRp gene Covid_negative [facility] This lab was ordered by [facility] and reported by [facility]. ID Date Data Source [id number] 01/24/2021 09:17:00 AM EDT [facility] Name Value Range Interpretation Code Description Data Funmilayo rce(s) Supporting Document(s) SARS coronavirus 2 RdRp gene Covid_negative [facility] This lab was ordered by [employer] and reported by [facility]. ID Date Data Source [id number] 01/17/2021 09:26:00 AM EDT [facility] Name Value Range Interpretation Code Description Data Funmilayo rce(s) Supporting Document(s) SARS coronavirus 2 RdRp gene Covid_negative [facility] This lab was ordered by [employer] and reported by [facility]. ID Date Data Source [id number] 01/03/2021 09:17:00 AM EDT [facility] Name Value Range Interpretation Code Description Data Funmilayo rce(s) Supporting Document(s) SARS coronavirus 2 RdRp gene Covid_negative [facility] This lab was ordered by [employer] and reported by [facility]. ID Date Data Source [id number] 12/27/2020 10:04:00 AM EDT [facility] Name Value Range Interpretation Code Description Data Funmilayo rce(s) Supporting Document(s) SARS coronavirus 2 RdRp gene Covid_negative [facility] This lab was ordered by [employer] and reported by [facility]. ID Date Data Source [id number] 11/22/2020 06:13:00 PM EDT [facility] ([facility]) Name Value Range Interpretation Code Description Data Funmilayo rce(s) Supporting Document(s) Calcidiol [Mass/volume] in Serum or Plasma 29.4 ng/mL 30.0- 100.0 Below low normal [facility] ([facility]) ID Date Data Source [id number] 11/22/2020 06:13:00 PM EDT [facility] ([facility]) Name Value Range Interpretation Code Description Data Funmilayo rce(s) Supporting Document(s) Triglycerides Level 73 mg/dL Normal (applies to non-nume annie results) [facility] ([facility]) Cholesterol Level 214 mg/dL Above high normal [facility] ([facility]) HDL Cholesterol 79 mg/dL Normal (applies to non-numeric results) [facility] ([facility]) LDL Cholesterol 120 mg/dL Above high normal [facility] ([facility]) Non-HDL-C 135 mg/dL Normal (applies to non-numeric resul ts) [facility] ([facility]) Cholesterol Risk Ratio 2.708 Normal (applies to non-n umeric results) [facility] ([facility]) ID Date Data Source [id number] 11/22/2020 06:13:00 PM EDT [facility] ([facility]) Name Value Range Interpretation Code Description Data Funmilayo rce(s) Supporting Document(s) Red Blood Count 4.40 10 4.00-5.40 Normal (applies to non-numeric results) [facility] ([facility]) White Blood Count 6.9 10 4.0-10.0 Normal (applies to non-numeri c results) [facility] ([facility]) Hematocrit 40.5 % 36.0-47.0 Normal (applies to non-numeric resul ts) [facility] ([facility]) Hemoglobin 13.2 g/dL 12.0-15.5 Normal (applies to non-numeric resul ts) [facility] ([facility]) Mean Corpuscular Volume 92.0 fl 80.0-96.0 Normal ( applies to non-numeric results) [facility] ([facility]) Mean Corpuscular HGB Conc 32.6 g/dL 32.0-36.5 Normal (applies to non-numeric results) [facility] ([facility]) Mean Corpuscular Hemoglobin 30.0 pg 27.0-33.0 Norm al (applies to non-numeric results) [facility] Red Cell Distribution Width 12.2 % 11.5-14.5 Norm al (applies to non-numeric results) [facility] ([facility]) Neutrophils % 70.4 % 36.0-66.0 Above high normal MEDE NT ([facility]) Platelet Count, Automated 248 10 150-450 Normal (applies to non-numeric results) [facility] ([facility]) Lymph % 20.1 % 24.0-44.0 Below low normal [facility] ( [facility]) [place] % 5.9 % 2.0-8.0 Normal (applies to non-numeric resul ts) [facility] ([facility]) Eos % 2.7 % 0.0-3.0 Normal (applies to non-numeric resul ts) [facility] ([facility]) Immature Granulocyte % 0.3 % 0-3.0 Normal (applies to non-n umeric results) [facility] ([facility]) Baso % 0.6 % 0.0-1.0 Normal (applies to non-numeric resul ts) [facility] ([facility]) Nucleated Red Blood Cell % 0.0 % 0-0 Normal (applies to n on-numeric results) [facility] ([facility]) Neutrophils # 4.9 10 1.5-8.5 Normal (applies to non-numeric re sults) [facility] ([facility]) Lymph # 1.4 10 1.5-5.0 Below low normal [facility] ( [facility]) Eos # 0.2 10 0.0-0.5 Normal (applies to non-numeric resul ts) [facility] ([facility]) [place] # 0.4 10 0.0-0.8 Normal (applies to non-numeric resul ts) [facility] ([facility]) Baso # 0.0 10 0.0-0.2 Normal (applies to non-numeric resul ts) [facility] ([facility]) ID Date Data Source [id number] 11/22/2020 06:13:00 PM EDT [facility] ([facility]) Name Value Range Interpretation Code Description Data Funmilayo rce(s) Supporting Document(s) Glucose, Fasting 81 mg/dL 70-100 Normal (applies to non-numeric results) [facility] ([facility]) Blood Urea Nitrogen 14 mg/dL 7-18 Normal (applies to non-nume annie results) [facility] ([facility]) Creatinine For GFR 0.83 mg/dL 0.55-1.30 Normal (applies to non -numeric results) [facility] ([facility]) Sodium Level 140 meq/L 136-145 Normal (applies to non-numeric res ults) [facility]) Glomerular Filtration Rate Laboratory test result Normal (applies to non- numeric results) [facility] ([facility]) <content>Units are mL/min/1.73 m2</content>
<content></content>
<content>Chronic Kidney Disease Staging per NKF:</content>
<content></content>
<content>Stage I & II GFR >=60 Normal to Mildly Decreased</content>
<content>Stage III GFR 30- 59 Moderately Decreased</content>
<content>Stage IV GFR 15-29 Severely Decreased</content>
<content>Stage V GFR <15 Very Little GFR Left</content>
<content>ESRD GFR <15 on EXCHANGE OPERATOR</content>
<content></content> Potassium Serum 4.0 meq/L 3.5-5.1 Normal (applies to non-numeric results) [facility] ([facility]) Chloride Level 105 meq/L 98-107 Normal (applies to non-numeric r esults) [facility] ([facility]) Carbon Dioxide Level 30 meq/L 21-32 Normal (applies to non-num robert results) [facility] ([facility]) Calcium Level 8.9 mg/dL 8.5-10.1 Normal (applies to non-numeric re sults) [facility] ([facility]) Anion Gap 5 meq/L 8-16 Below low normal [facility] ( [facility]) Ast/Sgot 15 U/L 7-37 Normal (applies to non-numeric resul ts) [facility] ([facility]) Alt/SGPT 23 U/L 12-78 Normal (applies to non-numeric resul ts) [facility] ([facility]) Alkaline Phosphatase 51 U/L 45-117 Normal (applies to non-num robert results) [facility]) Bilirubin,Total 0.3 mg/dL 0.2-1.0 Normal (applies to non-numeric results) [facility] ([facility]) Total Protein 7.4 GM/DL 6.4-8.2 Normal (applies to non-numeric re sults) [facility] ([facility]) Albumin 4.0 GM/DL 3.2-5.2 Normal (applies to non-numeric resul ts) [facility] ([facility]) Albumin/Globulin Ratio 1.2 1.2-2.2 Normal (applies to non-n umeric results) [facility] ([facility]) ID Date Data Source [id number] 11/22/2020 06:13:00 PM EDT [facility] ([facility]) Name Value Range Interpretation Code Description Data Funmilayo rce(s) Supporting Document(s) Free T4 0.95 ng/dL 0.76-1.46 Normal (applies to non-numeric resul ts) [facility] ([facility]) Thyroid Stimulating Hormone 4.350 uIU/ML 0.358-3.740 Above high eunice l [facility] ([facility]) ID Date Data Source [id number] 09/22/2020 02:02:00 PM EDT [facility] ([facility]) Name Value Range Interpretation Code Description Data Funmilayo rce(s) Supporting Document(s) Thyroid Stimulating Hormone 2.220 uIU/ML 0.358-3.740 Norm al (applies to non- numeric results) [facility] ([facility]) Free T4 0.88 ng/dL 0.76-1.46 Normal (applies to non-numeric resul ts) [facility] ([facility]) ID Date Data Source [id number] 07/19/2020 08:20:00 AM EDT [facility] ([facility]) Name Value Range Interpretation Code Description Data Funmilayo rce(s) Supporting Document(s) Thyroid Stimulating Hormone 3.820 uIU/ML 0.358-3.740 Above high eunice l [facility] ([facility]) Free T4 0.94 ng/dL 0.76-1.46 Normal (applies to non-numeric resul ts) [facility] ([facility]) ID Date Data Source [id number] 04/12/2020 02:57:00 PM EST [facility] ([facility]) Name Value Range Interpretation Code Description Data Funmilayo rce(s) Supporting Document(s) Free T4 0.90 ng/dL 0.76-1.46 Normal (applies to non-numeric resul ts) [facility] ([facility]) Thyroid Stimulating Hormone 3.930 uIU/ML 0.358-3.740 Above high eunice l [facility] ([facility]) ID Date Data Source [id number] 02/23/2020 10:15:00 AM EST [facility] Name Value Range Interpretation Code Description Data Funmilayo rce(s) Supporting Document(s) [facility] and reported by [facility]. ID Date Data Source [id number] 01/22/2020 07:29:00 AM EDT [facility] ([facility]) Name Value Range Interpretation Code Description Data Funmilayo rce(s) Supporting Document(s) Free T4 0.89 ng/dL 0.76-1.46 Normal (applies to non-numeric resul ts) [facility] ([facility]) Thyroid Stimulating Hormone 3.320 uIU/ML 0.358-3.740 Norm al (applies to non- numeric results) [facility] ([facility]) Procedure Social History Code Duration Value Status Description Data Source(s ) Smoking 02/06/2021 12:00:00 AM EST Patient has never smoked co mpleted Patient has never smoked [facility] ([facility]) Smoking 01/24/2021 12:00:00 AM EDT Never Smoker completed Never S moker eCW1 ([facility]) Smoking 11/14/2020 12:00:00 AM EDT Never Smoker completed Never S moker eCW1 ([facility]) Smoking 11/14/2020 12:00:00 AM EDT Never Smoker completed Never S moker eCW1 ([facility]) Vital Signs ID Date Data Source [id number] Name Value Range Interpretation Code Description Data Source(s) Body height 66 [in_i] 66 [in_i] [facility] ([facility]) 5'6" Body weight 143.00 [lb_av] 143.00 [lb_av] MEDEN T ([facility]) [place] body weight 130 [lb_av] 130 [lb_av] MEDEN T ([facility]) Body mass index (BMI) [Ratio] 23.1 kg/m2 23.1 k g/m2 [facility] ([facility]) Body weight 64.865 kg 64.865 kg [facility] ([facility]) Body surface area Derived from formula 1.73 m2 1.73 m2 [facility] ([facility]) Body weight 138.00 [lb_av] 138.00 [lb_av] MEDEN T ([facility]) Heart rate 55 /min 55 /min [facility] ([facility]) Body mass index (BMI) [Ratio] 22.9 kg/m2 22.9 k g/m2 [facility] ([facility]) Respiratory rate 16 /min 16 /min [facility] ( [facility]) Oxygen saturation in Arterial blood by Pulse oximetry 99 % 99 % [facility] ([facility]) Body temperature 97.8 [degF] 97.8 [degF] [facility] ([facility]) [place] body weight 125 [lb_av] 125 [lb_av] MEDEN T ([facility]) Systolic blood pressure 110 mm[Hg] 110 mm[Hg] M EDENT ([facility]) Diastolic blood pressure 62 mm[Hg] 62 mm[Hg] [facility] ([facility]) Body height 65.10 [in_i] 65.10 [in_i] [facility] ([facility]) 5'5.10" Body temperature 98.5 [degF] 98.5 [degF] [facility] ([facility]) Oxygen saturation in Arterial blood by Pulse oximetry 98 % 98 % [facility] ([facility]) [place] body weight 125 [lb_av] 125 [lb_av] MEDEN T ([facility]) Heart rate 62 /min 62 /min [facility] ([facility]) Respiratory rate 14 /min 14 /min [facility] ( [facility]) Body height 65.10 [in_i] 65.10 [in_i] [facility] ([facility]) 5'5.10" Systolic blood pressure 110 mm[Hg] 110 mm[Hg] M EDENT ([facility]) Diastolic blood pressure 64 mm[Hg] 64 mm[Hg] [facility] ([facility]) Body weight 140.12 [lb_av] 140.12 [lb_av] MEDEN T ([facility]) Body mass index (BMI) [Ratio] 23.2 kg/m2 23.2 k g/m2 [facility] ([facility]) Body weight 62.96 kg 62.96 kg eCW1 ([facility]) Diastolic blood pressure 66 mm[Hg] 66 mm[Hg] eCW1 ([facility]) Body weight 138.8 [lb_av] 138.8 [lb_av] eCW1 ([facility]) Body height 66.75 [in_i] 66.75 [in_i] eCW1 ([facility]) Body mass index (BMI) [Ratio] 21.9 kg/m2 21.9 k g/m2 eCW1 ([facility]) Systolic blood pressure 112 mm[Hg] 112 mm[Hg] e CW1 ([facility]) Body mass index (BMI) [Ratio] 23.3 kg/m2 23.3 k g/m2 [facility] ([facility]) Heart rate 86 /min 86 /min [facility] Diastolic blood pressure 72 mm[Hg] 72 mm[Hg] [facility] ([facility]) Body height 65.10 [in_i] 65.10 [in_i] [facility] ([facility]) 5'5.10" Body weight 140.25 [lb_av] 140.25 [lb_av] MEDEN T ([facility]) [place] body weight 125 [lb_av] 125 [lb_av] MEDEN T ([facility]) Systolic blood pressure 118 mm[Hg] 118 mm[Hg] M EDENT ([facility]) Respiratory rate 18 /min 18 /min [facility] ( [facility]) Body temperature 99.1 [degF] 99.1 [degF] [facility] ([facility]) Oxygen saturation in Arterial blood by Pulse oximetry 98 % 98 % [facility] ([facility]) Body weight 139.0 [lb_av] 139.0 [lb_av] eCW1 ([facility]) Body weight 63.05 kg 63.05 kg eCW1 ([facility]) Body height 66.75 [in_i] 66.75 [in_i] eCW1 ([facility]) Body mass index (BMI) [Ratio] 21.93 kg/m2 21.93 kg/m2 W1 ([facility]) Systolic blood pressure 118 mm[Hg] 118 mm[Hg] e CW1 ([facility]) Diastolic blood pressure 72 mm[Hg] 72 mm[Hg] eCW1 ([facility]) Body height 65.10 [in_i] 65.10 [in_i] [facility] ([facility]) 5'5.10" Systolic blood pressure 118 mm[Hg] 118 mm[Hg] M EDENT ([facility]) Diastolic blood pressure 78 mm[Hg] 78 mm[Hg] [facility] ([facility]) Body weight 142.00 [lb_av] 142.00 [lb_av] MEDEN T ([facility]) Body mass index (BMI) [Ratio] 23.6 kg/m2 23.6 k g/m2 [facility] ([facility]) Respiratory rate 18 /min 18 /min [facility] ( [facility]) Body temperature 98.3 [degF] 98.3 [degF] [facility] ([facility]) Oxygen saturation in Arterial blood by Pulse oximetry 98 % 98 % [facility] ([facility]) [place] body weight 125 [lb_av] 125 [lb_av] MEDEN T ([facility]) Diastolic blood pressure 60 mm[Hg] 60 mm[Hg] [facility] ([facility]) Systolic blood pressure 112 mm[Hg] 112 mm[Hg] M EDENT ([facility]) Body height 65.10 [in_i] 65.10 [in_i] [facility] ([facility]) 5'5.10" Body weight 146.00 [lb_av] 146.00 [lb_av] MEDEN T ([facility]) Body mass index (BMI) [Ratio] 24.2 kg/m2 24.2 k g/m2 [facility] ([facility]) Heart rate 67 /min 67 /min [facility] ([facility]) Respiratory rate 18 /min 18 /min [facility] ( [facility]) Body temperature 98.1 [degF] 98.1 [degF] [facility] ([facility]) Oxygen saturation in Arterial blood by Pulse oximetry 97 % 97 % [facility] ([facility]) [place] body weight 125 [lb_av] 125 [lb_av] MEDEN T ([facility]) Systolic blood pressure 118 mm[Hg] 118 mm[Hg] [facility] ([facility]) Body height 65.10 [in_i] 65.10 [in_i] [facility] ([facility]) 5'5.10" Body weight 147.12 [lb_av] 147.12 [lb_av] MEDEN T ([facility]) Body mass index (BMI) [Ratio] 24.4 kg/m2 24.4 k g/m2 [facility] ([facility]) Heart rate 100 /min 100 /min [facility] ([facility]) Respiratory rate 18 /min 18 /min [facility] ( [facility]) Body temperature 98.5 [degF] 98.5 [degF] [facility] ([facility]) Oxygen saturation in Arterial blood by Pulse oximetry 98 % 98 % [facility] ([facility]) [place] body weight 125 [lb_av] 125 [lb_av] MEDEN T ([facility]) Diastolic blood pressure 64 mm[Hg] 64 mm[Hg] [facility] ([facility]) Systolic blood pressure 98 mm[Hg] 98 mm[Hg] ED[facility] ([facility]) Body height 65.10 [in_i] 65.10 [in_i] [facility] ([facility]) 5'5.10" Diastolic blood pressure 60 mm[Hg] 60 mm[Hg] [facility] ([facility]) Body weight 144.00 [lb_av] 144.00 [lb_av] RONNELL [facility] ([facility]) Body mass index (BMI) [Ratio] 23.9 kg/m2 23.9 k g/m2 [facility]) Heart rate 68 /min 68 /min [facility] ([facility]) Respiratory rate 16 /min 16 /min [facility] ( [facility]) Body temperature 98.2 [degF] 98.2 [degF] [facility] ([facility]) Oxygen saturation in Arterial blood by Pulse oximetry 99 % 99 % [facility] ([facility]) [place] body weight 125 [lb_av] 125 [lb_av] RONNELL T ([facility]) Patient Treatment Plan of Care Planned Activity Planned Date Details Description Data Source (s) hydroquinone 40 MG/ML Topical Cream 11/14/2020 12:00:00 AM EDT eCW1 ([facility]) hydroquinone 40 MG/ML Topical Cream 11/14/2020 12:00:00 AM EDT eCW1 ([facility])
[2021-02-27 19:05] LABS: HEMATOCRIT 35.3 % (36.0-47.0); HEMOGLOBIN 11.8 g/dl (12.0-15.5); MEAN CORPUSCULAR HEMOGLOBIN 30.4 pg (27.0-33.0); MEAN CORPUSCULAR HGB CONC 33.4 g/dl (32.0-36.5); PLATELET COUNT, AUTOMATED 195 10^3/uL (150-450); RED BLOOD COUNT 3.88 10^6/uL (4.00-5.40); WHITE BLOOD COUNT 8.4 10^3/uL (4.0-10.0)
[2021-02-27 19:40] LABS: ALBUMIN 3.4 GM/DL (3.2-5.2); ALT/SGPT 28 U/L (12-78); BILIRUBIN,TOTAL 0.4 MG/DL (0.2-1.0); BLOOD UREA NITROGEN 10 MG/DL (7-18); CALCIUM LEVEL 8.2 MG/DL (8.5-10.1); CARBON DIOXIDE LEVEL 28 MEQ/L (21-32); CHLORIDE LEVEL 108 MEQ/L (98-107); GLOMERULAR FILTRATION RATE > 60.0 (>60); GLUCOSE, FASTING 108 MG/DL (70-100); POTASSIUM SERUM 3.7 MEQ/L (3.5-5.1); SODIUM LEVEL 141 MEQ/L (136-145); TOTAL PROTEIN 6.4 GM/DL (6.4-8.2)
--- OUTSIDE RECORDS SUMMARY | 2021-02-27 21:40 | CCD ---
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 Care Supervisor Bindery Name Role Phone Joseph Qiu Unavailable Unavailable [...] Unavailable CHANEL-MORALES, MANNY DO Unavailable Unavailable CHANEL-MORALES, MNANY DO Unavailable Unavailable CHANLE-MORALES, MANNY DO Unavailable Unavailable CHANEL-MORALES, MANNY DO [...] is protected by Article 27-F of the [facility] Public Health law. If you continue you may have access to information: Regarding HIV / AIDS; Provided by facilities licensed or operated by the [facility] Office of Mental Health; or Provided by the [facility] Office for People With Developmental Disabilities. If such information is present, then the following [facility] mandated warning applies: This information has [...] Description Data Source(s) Unknown Unknown Problem MEDENT ([facility]) Unknown Male Problem MEDENT ([facility]) Unknown Unknown Problem [facility] ([facility]) Encounters Encounter Providers Location Date Indications Data Source(s ) Outpatient Attender: [facility] 02/14/2021 10:40:00 AM EST [facility] ([facility]) Outpatient Attender: MANNY FORD [facility] 02/06/2021 02:00:00 PM EST [facility] ([facility]) Outpatient Admitter: Alexander Bernabeer: Alexander Qiu 02/01/2021 12:00:00 AM EST Enlarged lymph nodes, unspecified [facility] Enlarged lymph nodes, unspecified Outpatient [address] [facility] [address] 01/24/2021 12:00:00 AM EDT eCW1 ([facility]) Outpatient Attender: MANNY FORD [facility] 12/01/2020 03:00:00 PM EDT [facility] ([facility]) Outpatient [address] [facility] [address] 11/14/2020 12:00:00 AM EDT eCW1 ([facility]) Unknown [address] [facility] [address] 11/14/2020 12:00:00 AM EDT eCW1 ([facility]) Outpatient Attender: MANNY FORD [facility] 09/27/2020 03:40:00 PM EDT MEDENT ([facility]) Outpatient Attender: MANNY FORD [facility] 07/25/2020 03:40:00 PM EDT MEDENT ([facility]) Outpatient Attender: MANNY FORD [facility] 04/21/2020 02:30:00 PM EST MEDENT ([facility]) Outpatient Attender: MANNY FORD [facility] 01/25/2020 03:00:00 PM EST MEDENT ([facility]) Medications Medication Brand Name Start Date Product [...] Prednisone 02/09/2021 12:00:00 AM EST active MEDENT ([facility]) Amoxicillin 875 MG / Clavulanate 125 MG Oral Tablet Am oxicillin/Clavulanate Potassium 02/06/2021 12:00:00 AM EST ORAL active MEDENT ([facility]) Amoxicillin 875 MG / Clavulanate 125 MG Oral Tablet 87 5-125 mg AMOXICILLIN/POTASSIUM CLAV 02/06/2021 12:00:00 AM EST tablet 20 TAKE ONE TABLET BY MOUTH TWICE A DAY FOR 10 DAYS TAKE ONE TABLET BY MOUTH TWICE A DAY FOR 10 DAYS SOLD: 02/06/2021 [facility] Ul[facility]ound Guided Biopsy Of Right Enlarged Lymph Nodes 02/01/2021 12:00:00 AM EST active MEDENT ([facility]) 75 mcg 12/02/2020 12:00:00 AM EDT tablet 90 TAKE ONE TABLET BY MOUTH EVERY DAY TAKE ONE TABLET BY MOUTH EVERY DAY SOLD: 12/09/2020 [facility] Levothyroxine Sodium 0.075 MG Oral Tablet Levothyroxine Sodi um 12/01/2020 12:00:00 AM EDT ORAL active M EDENT ([facility]) hydroquinone 40 MG/ML Topical Cream Hydroquinone 4 % Hydroqu inone 4 % 11/14/2020 12:00:00 AM EDT 1.0 {application} suspended Hydroquinone 4 % eCW1 ([facility]) hydroquinone 40 MG/ML Topical Cream Hydroquinone 4 % Hydroqu inone 4 % 11/14/2020 12:00:00 AM EDT 1.0 {application} active Hydroquinone 4 % eCW1 ([facility]) hydroquinone 40 MG/ML Topical Cream Hydroquinone 4 % Hydroqu inone 4 % 11/14/2020 12:00:00 AM EDT 1.0 {application} active Hydroquinone 4 % eCW1 ([facility]) 50 mcg 07/26/2020 12:00:00 AM EDT tablet [...] 12:00:00 AM EST ORAL active M EDENT ([facility]) Naproxen 500 MG Oral Tablet Naproxen 03/15/2020 12:00:00 AM EST active MEDENT ([facility]) 25 mcg 12/22/2019 12:00:00 AM EDT tablet 90 TAKE ONE TABLET BY MOUTH EVERY DAY TAKE ONE TABLET BY MOUTH EVERY DAY SOLD: 03/04/2020 [facility] Insurance Providers Payer name Policy type / Coverage type Policy ID Covered constitution party ID Covered constitution party's relationship to willett Policy [place] Plan Information [place] 306/806 [id number] SP [id number] [place] P[place] 302/307 [id number] SP [id number] [place] 306/806 [id number] SP [id number] EXCELLUS BCBS [id number] Heena VYS [id number] EXCELLUS H [id number] Self [id number] [place] PPO 302/307 [id number] SP [id number] BS [place] Medigap Part B [id number] Self [id number] [place] 306/806 [id number] SP [id number] [place] PPO 302/307 [id number] SP [id number] BS [place] Commercial [id number] Self [id number] [place] PPO 302/307 [id number] SP [id number] [place] CLAIMS ADMIN NCA WC W [id number] Empl [id number] Cassandra Claims (WC) Workers Compensation [id number] Self [id number] Nai [facility] Health Maintenance Organization (HMO) [id number] Self Nai [employer] Commercial [id number] Family Dependent BS Of [place] Commercial [id number] Family Dependent BS [place] Commercial [id number] Self Nai [facility] U/W Commercial [id number] Self [id number] [id number] PMA MANAGEMENT ELLI [facility] [id number] SP [id number] PMA MANAGEMENT ELLI [facility] SP EXCELLUS BCBS B [id number] S VYS [id number] EXCELLUS BC-BS PPO [id number] SP [id number] Nai [facility] U/W Commercial [id number] Self [id number] [facility] Health Maintenance Organization (HMO) [id number] Self [id number] CASSANDRA CLAIM ADMIN WORK COMP [id number] SP [id number] Nai [facility] U/W Commercial [id number] Self [id number] [id number] EXCELLUS BC-BS PPO 306 [id number] SP [id number] BCBS [facility] Other 0 [id number] Self 0 Jeniferus [facility] U/W Commercial [id number] Self [id number] [facility] Health Maintenance Organization (HMO) [id number] Self [id number] Excellus [facility] Health Maintenance Organization ([facility]) [id number] Self [id number] Problems, Conditions, and Diagnoses Code Display Name Description Problem Type Effective Dates Data Source(s) R59.9 Enlarged lymph nodes, unspecified Enlarged lymph nodes, unspecified Diagnosis 02/01/2021 11:19:00 AM EST [facility] M35.00 [id number] Sjogren's syndrome, with unspecified orga n involvement Problem 12/05/2020 12:00:00 AM EDT eCW1 ([facility]) Surgeries/Procedures Procedure Description Date Indications Data Source(s) OFFICE OUTPATIENT VISIT 15 MINUTES 02/14/2021 12:00:00 AM EST MEDENT ([facility]) OFFICE OUTPATIENT VISIT 25 MINUTES 02/06/2021 12:00:00 AM EST MEDENT ([facility]) PERIODIC PREVENTIVE MED EST PATIENT 18-39 YRS 12/02/19 12:00:00 AM EDT MEDENT ([facility]) OFFICE OUTPATIENT VISIT 25 MINUTES 09/27/2020 12:00:00 AM EDT MED[facility] ([facility]) OFFICE OUTPATIENT VISIT 15 MINUTES 07/25/2020 12:00:00 AM EDT MED[facility] ([facility]) OFFICE OUTPATIENT VISIT 15 MINUTES 04/21/2020 12:00:00 AM EST MED[facility] ([facility]) Results ID Date Data Source [id number] 02/21/2021 09:54:00 AM EST [facility] Name Value Range Interpretation Code Description Data Funmilayo rce(s) Supporting Document(s) SARS coronavirus 2 RdRp gene Covid_negative [facility] This lab was ordered by [facility] and reported by [employer] ID Date Data Source [id number] 02/14/2021 09:00:00 AM EST [facility] Name Value Range Interpretation Code Description Data Funmilayo rce(s) Supporting Document(s) SARS coronavirus 2 RdRp gene Covid_negative [facility] This lab was ordered by [facility] and reported by [employer] ID Date Data Source [id number] 02/07/2021 10:01:00 AM EST [facility] Name Value Range Interpretation Code Description Data Funmilayo rce(s) Supporting Document(s) SARS coronavirus 2 RdRp gene Covid_negative [facility] This lab was ordered by [employer] and reported by [employer] ID Date Data Source [id number] 02/06/2021 03:54:00 PM EST MEDENT ([facility]) Name Value Range Interpretation Code Description Data Funmilayo rce(s) Supporting Document(s) Creatine kinase [Enzymatic activity/volume] in Serum or Plasma 3 93 U/L 26-192 Above high normal MED[facility] ([facility]) ID Date Data Source [id number] 02/06/2021 03:54:00 PM EST MED[facility] ([facility]) Name Value Range Interpretation Code Description Data Funmilayo rce(s) Supporting Document(s) Anti Double Strand-Dna AB 3 IU/ml 0-9 Normal (applies to no n-numeric results) [facility] ([facility]) <content>Negative <5</content>
<content>Equivocal 5 - 9</content>
<content>Positive >9</content>
<content></content> Antinuclear Antibodies Direct Laboratory test result Abnormal (applies to non- numeric results) [facility] ([facility]) MEDICAL SPECIALIST Antibodies Laboratory test result 0.0-0.9 Normal (a pplies to non-numeric results) [facility] ([facility]) Sjogren's Anti SS-A 6.4 AI 0.0-0.9 Above high normal MED[facility] ([facility]) [place] Antibodies Laboratory test result 0.0-0.9 Normal ( applies to non-numeric results) [facility] ([facility]) Sjogren's Anti SS-B 0.2 AI 0.0-0.9 Normal (applies to non-nume annie results) MED[facility] ([facility]) Grant Comment Laboratory test result Normal (applies to non- numeric results) [facility] ([facility]) . Autoantibody Disease Association Condition Frequency [...] (anti-[place]) SLE 15 - 30% ------- --------- MEDICAL SPECIALIST Mixed Connective Tissue Disease 95% (U1 nRNP, SLE 30 - 50% anti-ribonucleoprotein) Polymyositis and/or Dermatomyositis 20% -------- --------- Scl-70 (antiDNA Scleroderma (diffuse) 20 - 35% topoisomerase) Crest 13% -------- --------- Hanna-1 Polymyositis and/or Dermatomyositis 20 - 40% -------- --------- Centromere B Scleroderma - Crest variant 80% Performed at: [facility] [address] [id number] [employer] Vendor: Torie Bobo MD, Phone: [phone] Performed at: [facility] [address] [id number] [employer]stand Vendor: Vladimir Carrera MD, Phone: [phone] ID Date Data Source [id number] 02/06/2021 03:54:00 PM EST MEDENT ([facility]) Name Value Range Interpretation Code Description Data Funmilayo rce(s) Supporting Document(s) Rheumatoid factor [Units/volume] in Serum or Plasma Laboratory t est result Normal (applies to non-numeric results) [facility] ([facility]) Cyclic citrullinated peptide IgG Ab [Units/volume] in Serum or Plasma 6 units 0-19 Normal (applies to non-numeric results) [facility] ([facility]) <content>Negative <20</con tent>
<content>Weak positive 20 - 39</content>
<content>Moderate positive 40 - 59</content>
<content>Strong positive >59</content>
<content></content> ID Date Data Source [id number] 02/06/2021 03:54:00 PM EST MEDENT ([facility]) Name Value Range Interpretation Code Description Data Funmilayo rce(s) Supporting Document(s) Thyroid Stimulating Hormone 0.968 uIU/ML 0.358-3.740 Norm al (applies to non- numeric results) [facility] ([facility]) Free T4 1.10 ng/dL 0.76-1.46 Normal (applies to non-numeric resul ts) [facility]) ID Date Data Source [id number] 02/06/2021 03:54:00 PM EST MEDENT ([facility]) Name Value Range Interpretation Code Description Data Funmilayo rce(s) Supporting Document(s) Lyme Disease IgG/IgM Antibodie Laboratory test result 0.00-0.90 Normal (applies to non-numeric results) [facility] ([facility]) <content>Negative <0.91</content >
<content>Equivocal 0.91 - 1.09</content>
<content>Positive >1.09</content>
<content></content> Lyme Disease IgM Ab Quantitati Laboratory test result 0.00-0.79 Normal (applies to non-numeric results) [facility] ([facility]) <content>Negative <0.80</content >
<content>Equivocal 0.80 - 1.19</content>
<content>Positive >1.19</content>
<content>.</content>
<content>IgM levels may peak at 3-6 weeks post infection, then</content>
<content>gradually decline.</content>
<content></content> ID Date Data Source [id number] 02/06/2021 03:54:00 PM EST MEDENT ([facility]) Name Value Range Interpretation Code Description Data Funmilayo rce(s) Supporting Document(s) C reactive protein [Mass/volume] in Serum or Plasma by High sensitivity method Laboratory test result 0.00-0.30 Normal (applies to non-numeric results) [facility] ([facility]) Erythrocyte sedimentation rate by Westergren method 7 mm/hr 0-20 Normal (applies to non-numeric results) [facility] ([facility]) Lactate dehydrogenase [Enzymatic activit y/volume] in Serum or Plasma by Lactate to pyruvate reaction 187 U/L 84-246 Normal (applies to non-numeric re sults) [facility] ([facility]) ID Date Data Source [id number] 02/06/2021 03:54:00 PM EST MED[facility] ([facility]) Name Value Range Interpretation Code Description Data Funmilayo rce(s) Supporting Document(s) White Blood Count 7.6 10 4.0-10.0 Normal (applies to non-numeri c results) [facility] ([facility]) Red Blood Count 4.33 10 4.00-5.40 Normal (applies to non-numeric results) [facility] ([facility]) Hematocrit 39.9 % 36.0-47.0 Normal (applies to non-numeric resul ts) [facility] ([facility]) Hemoglobin 13.2 g/dL 12.0-15.5 Normal (applies to non-numeric resul ts) [facility] ([facility]) Mean Corpuscular Volume 92.1 fl 80.0-96.0 Normal ( applies to non-numeric results) [facility] ([facility]) Mean Corpuscular Hemoglobin 30.5 pg 27.0-33.0 Norm al (applies to non-numeric results) [facility] ([facility]) Mean Corpuscular HGB Conc 33.1 g/dL 32.0-36.5 Normal (applies to non-numeric results) [facility] ([facility]) Red Cell Distribution Width 11.9 % 11.5-14.5 Norm al (applies to non-numeric results) [facility] ([facility]) Platelet Count, Automated 260 10 150-450 Normal (applies to non-numeric results) [facility] ([facility]) Neutrophils % 82.5 % 36.0-66.0 Above high normal MEDE NT ([facility]) Lymph % 13.4 % 24.0-44.0 Below low normal MED[facility] ( [facility]) [place] % 3.5 % 2.0-8.0 Normal (applies to non-numeric resul ts) [facility] ([facility]) Baso % 0.1 % 0.0-1.0 Normal (applies to non-numeric resul ts) [facility] ([facility]) Eos % 0.1 % 0.0-3.0 Normal (applies to non-numeric resul ts) [facility] ([facility]) Immature Granulocyte % 0.4 % 0-3.0 Normal (applies to non-n umeric results) [facility] ([facility]) Neutrophils # 6.3 10 1.5-8.5 Normal (applies to non-numeric re sults) [facility] ([facility]) Nucleated Red Blood Cell % 0.0 % 0-0 Normal (applies to n on-numeric results) [facility] ([facility]) Lymph # 1.0 10 1.5-5.0 Below low normal [facility] ( [facility]) [place] # 0.3 10 0.0-0.8 Normal (applies to non-numeric resul ts) [facility] ([facility]) Baso # 0.0 10 0.0-0.2 Normal (applies to non-numeric resul ts) [facility] ([facility]) Eos # 0.0 10 0.0-0.5 Normal (applies to non-numeric resul ts) [facility] ([facility]) ID Date Data Source [id number] 02/03/2021 07:21:00 AM EST [facility] ([facility]) Name Value Range Interpretation Code Description Data Funmilayo rce(s) Supporting Document(s) Free T4 1.16 ng/dL 0.76-1.46 Normal (applies to non-numeric resul ts) [facility] ([facility]) Thyroid Stimulating Hormone 2.900 uIU/ML 0.358-3.740 Norm al (applies to non- numeric results) [facility] ([facility]) ID Date Data Source [id number] 02/01/2021 03:15:00 PM EST MED[facility] ([facility]) Name Value Range Interpretation Code Description Data Funmilayo rce(s) Supporting Document(s) Surgical pathology study Laboratory test result [facility] ([facility]) FINAL DIAGNOSIS Lymph node, right subclavicular, [...] MD 02/08/2021 0814 ID Date Data Source [id number] 02/03/2021 03:29:00 PM EST [facility] Hematopathology ReportName: SHAMAR GOODMRN: [id number] Number: [id number] Date: 02/01/2021 14:56Received Date: 02/02/2021 16:08Physician(s): ALEXANDER QIU MD VYAS, SHIKHAR G,MDSpecimen(s) ReceivedA: Core Biopsy, Flow Cytometry; [facility] MESAClinical HistoryLymphadenopathy of right neck.TEST REQUESTED/PERFORMED: Flow cytometry analysis. DiagnosisFlow cytometry, lymph node, right supraclavicular, biopsy: Reactivelymphoid subsets (CD4/CD8 ratio = 10). No immunophenotypic evidence ofnon-Hodgkin lymphoma. Final diagnosis deferred to biopsy.Electronically Signed By Princess Couch MD AttendingPathologist 02/03/2021 15:29:17 ProceduresFlow Cytometry Date Ordered:02/02/2021 Status: Signed Out02/03/2021 InterpretationA cytospin shows: Predominantly small to medium sized lymphocytes.Lymphoma [place] Panel for Devorah Wright 21 [id number] following markers were assayed: CD45 (gate), CD2, CD3, CD4, CD5, CD7,CD8, CD10,CD19, CD20, Twain, and Lambda.Events :420NOTE: Routinely a minimum of 50,000 events are collected in each paneltube. Due to samplecellularity and/or processing this number was not achievable for t hissample.No viability performed due to low cellularity.Flow Cytometry Differential (CD45/SSC)Lymphocyte [place]: 0%CD45 dim [place]: 0%Monocyte [place]: 0%Granulocyte [place]: 6%Nucleated/Erythroid [place]: 1%The lymphocyte gate showsB- Cells (CD19): 46%Twain/Lambda Ratio: 2.2T-Cells (CD3): 54%CD4/CD8 Ratio: 10.0Results: (expressed as % of lymphocyte gate)B-cell Markers: CD19 = 46, CD19/CD5 = 7Gated on CD19+ cells only: CD19/Twain = 32, CD19/Lambda = 14, CD19/CD10 =7,CD19/CD20 [...] developed and theirper formance characteristics determined by [facility] Pathology department.They have not been cleared or approved by the US Food and DrugAdministration. The FDA has determined that such clearance or approval isnot necessary. Name Value Range Interpretation Code Description Data Funmilayo rce(s) Supporting Document(s) ID Date Data Source [id number] 02/07/2021 04:12:00 PM [facility] Hematopathology ReportName: SHAMAR GOODMRN: [id number] Number: [id number] Date: 02/01/2021 00:00Received Date: 02/03/2021 13:42Physician(s): ALEXANDER QIU,ALEXANDER BUENO,MDSpecimen(s) ReceivedA: Slides received for consultation, KB; RECEIVED 7 SLIDES (6 UNSTAINED)AND 1 BLOCK OF RIGHT SUBCLAVICULAR LYMPH NODE [facility] [id number] Salesical HistoryLymphadenopathy of right [...] Microscopic DescriptionCores of lymph node show mostly pgche-dd-wdevsj sized polymorphouslymphoid cells. Many small vessels and small fibrotic areas are seen. Asmall reactive-appearing germinal center is seen. Immunohistochemical staining shows a mixture of B (CD20) and T cells(CD3). CD20 hurd a few B-nodules.All stains performed at [facility]. ProceduresThis report may include one or more immunohistochemical stain/fluorochromeconjugated monoclonal antibody results that use analyte specific reagents.All positive and negative controls have been reviewed by the attendingpathologist and are satisfactory. The tests were developed and theirperformance characteristics determined by [facility] Pathology department.They have not been cleared or approved by the US Food and DrugAdministration. The FDA has determined that such clearance or approval isnot necessary. Name Value Range Interpretation Code Description Data Funmilayo rce(s) Supporting Document(s) ID Date Data Source [id number] 01/31/2021 09:58:00 AM EST [facility] Name Value Range Interpretation Code Description Data Funmilayo rce(s) Supporting Document(s) SARS coronavirus 2 RdRp gene Covid_negative [facility] This lab was ordered by [facility] and reported by [employer] ID Date Data Source [id number] 01/24/2021 09:17:00 AM EDT [facility] Name Value Range Interpretation Code Description Data Funmilayo rce(s) Supporting Document(s) SARS coronavirus 2 RdRp gene Covid_negative [facility] This lab was ordered by [facility] and reported by [employer] ID Date Data Source [id number] 01/17/2021 09:26:00 AM EDT [facility] Name Value Range Interpretation Code Description Data Funmilayo rce(s) Supporting Document(s) SARS coronavirus 2 RdRp gene Covid_negative [facility] This lab was ordered by [facility] and reported by [employer] ID Date Data Source [id number] 01/03/2021 09:17:00 AM EDT [facility] Name Value Range Interpretation Code Description Data Funmilayo rce(s) Supporting Document(s) SARS coronavirus 2 RdRp gene Covid_negative [facility] This lab was ordered by [facility] and reported by [employer] ID Date Data Source [id number] 12/27/2020 10:04:00 AM EDT [facility] Name Value Range Interpretation Code Description Data Funmilayo rce(s) Supporting Document(s) SARS coronavirus 2 RdRp gene Covid_negative [facility] This lab was ordered by [facility] and reported by [employer] ID Date Data Source [id number] 11/22/2020 06:13:00 PM EDT [facility] ([facility]) Name Value Range Interpretation Code Description Data Funmilayo rce(s) Supporting Document(s) Calcidiol [Mass/volume] in Serum or Plasma 29.4 ng/mL 30.0- 100.0 Below low normal [facility] ([facility]) ID Date Data Source [id number] 11/22/2020 06:13:00 PM EDT [facility] ([facility]) Name Value Range Interpretation Code Description Data Funmilayo rce(s) Supporting Document(s) Triglycerides Level 73 mg/dL Normal (applies to non-nume annie results) [facility] ([facility]) Cholesterol Level 214 mg/dL Above high normal [facility] ([facility]) HDL Cholesterol 79 mg/dL Normal (applies to non-numeric results) [facility] ([facility]) LDL Cholesterol 120 mg/dL Above high normal [facility] ([facility]) Non-HDL-C 135 mg/dL Normal (applies to non-numeric resul ts) [facility] ([facility]) Cholesterol Risk Ratio 2.708 Normal (applies to non-n umeric results) [facility] ([facility]) ID Date Data Source [id number] 11/22/2020 06:13:00 PM EDT [facility] ([facility]) Name Value Range Interpretation Code Description Data Funmilayo rce(s) Supporting Document(s) Red Blood Count 4.40 10 4.00-5.40 Normal (applies to non-numeric results) [facility] ([facility]) White Blood Count 6.9 10 4.0-10.0 Normal (applies to non-numeri c results) [facility] ([facility]) Hematocrit 40.5 % 36.0-47.0 Normal (applies to non-numeric resul ts) [facility] ([facility]) Hemoglobin 13.2 g/dL 12.0-15.5 Normal (applies to non-numeric resul ts) [facility] ([facility]) Mean Corpuscular Volume 92.0 fl 80.0-96.0 Normal ( applies to non-numeric results) [facility] ([facility]) Mean Corpuscular HGB Conc 32.6 g/dL 32.0-36.5 Normal (applies to non-numeric results) [facility] ([facility]) Mean Corpuscular Hemoglobin 30.0 pg 27.0-33.0 Norm al (applies to non-numeric results) [facility] ([facility]) Red Cell Distribution Width 12.2 % 11.5-14.5 Norm al (applies to non-numeric results) [facility] ([facility]) Neutrophils % 70.4 % 36.0-66.0 Above high normal MEDE NT ([facility]) Platelet Count, Automated 248 10 150-450 Normal (applies to non-numeric results) [facility] ([facility]) Lymph % 20.1 % 24.0-44.0 Below low normal [facility] ( [facility]) [place] % 5.9 % 2.0-8.0 Normal (applies to non-numeric resul ts) [facility] ([facility]) Eos % 2.7 % 0.0-3.0 Normal (applies to non-numeric resul ts) [facility] ([facility]) Immature Granulocyte % 0.3 % 0-3.0 Normal (applies to non-n umeric results) [facility] ([facility]) Baso % 0.6 % 0.0-1.0 Normal (applies to non-numeric resul ts) [facility] ([facility]) Nucleated Red Blood Cell % 0.0 % 0-0 Normal (applies to n on-numeric results) [facility] ([facility]) Neutrophils # 4.9 10 1.5-8.5 Normal (applies to non-numeric re sults) [facility] ([facility]) Lymph # 1.4 10 1.5-5.0 Below low normal [facility] ( [facility]) Eos # 0.2 10 0.0-0.5 Normal (applies to non-numeric resul ts) [facility] ([facility]) [place] # 0.4 10 0.0-0.8 Normal (applies to non-numeric resul ts) [facility] ([facility]) Baso # 0.0 10 0.0-0.2 Normal (applies to non-numeric resul ts) [facility] ([facility]) ID Date Data Source [id number] 11/22/2020 06:13:00 PM EDT [facility] ([facility]) Name Value Range Interpretation Code Description Data Funmilayo rce(s) Supporting Document(s) Glucose, Fasting 81 mg/dL 70-100 Normal (applies to non-numeric results) [facility] ([facility]) Blood Urea Nitrogen 14 mg/dL 7-18 Normal (applies to non-nume annie results) [facility] ([facility]) Creatinine For GFR 0.83 mg/dL 0.55-1.30 Normal (applies to non -numeric results) [facility] ([facility]) Sodium Level 140 meq/L 136-145 Normal (applies to non-numeric res ults) [facility] ([facility]) Glomerular Filtration Rate Laboratory test result Normal (applies to non- numeric results) [facility] ([facility]) <content>Units are mL/min/1.73 m2</content>
<content></content>
<content>Chronic Kidney Disease Staging per NKF:</content>
<content></content>
<content>Stage I & II GFR >=60 Normal to Mildly Decreased</content>
<content>Stage III GFR 30- 59 Moderately Decreased</content>
<content>Stage IV GFR 15-29 Severely Decreased</content>
<content>Stage V GFR <15 Very Little GFR Left</content>
<content>ESRD GFR <15 on CAMPUS MONITOR</content>
<content></content> Potassium Serum 4.0 meq/L 3.5-5.1 Normal (applies to non-numeric results) [facility] ([facility]) Chloride Level 105 meq/L 98-107 Normal (applies to non-numeric r esults) [facility] ([facility]) Carbon Dioxide Level 30 meq/L 21-32 Normal (applies to non-num robert results) [facility] ([facility]) Calcium Level 8.9 mg/dL 8.5-10.1 Normal (applies to non-numeric re sults) [facility] ([facility]) Anion Gap 5 meq/L 8-16 Below low normal [facility] ( [facility]) Ast/Sgot 15 U/L 7-37 Normal (applies to non-numeric resul ts) [facility] ([facility]) Alt/SGPT 23 U/L 12-78 Normal (applies to non-numeric resul ts) [facility] ([facility]) Alkaline Phosphatase 51 U/L 45-117 Normal (applies to non-num robert results) [facility] ([facility]) Bilirubin,Total 0.3 mg/dL 0.2-1.0 Normal (applies to non-numeric results) [facility] ([facility]) Total Protein 7.4 GM/DL 6.4-8.2 Normal (applies to non-numeric re sults) [facility] ([facility]) Albumin 4.0 GM/DL 3.2-5.2 Normal (applies to non-numeric resul ts) [facility] ([facility]) Albumin/Globulin Ratio 1.2 1.2-2.2 Normal (applies to non-n umeric results) [facility] ([facility]) ID Date Data Source [id number] 11/22/2020 06:13:00 PM EDT [facility] ([facility]) Name Value Range Interpretation Code Description Data Funmilayo rce(s) Supporting Document(s) Free T4 0.95 ng/dL 0.76-1.46 Normal (applies to non-numeric resul ts) [facility] ([facility]) Thyroid Stimulating Hormone 4.350 uIU/ML 0.358-3.740 Above high eunice l [facility] ([facility]) ID Date Data Source [id number] 09/22/2020 02:02:00 PM EDT [facility] ([facility]) Name Value Range Interpretation Code Description Data Funmilayo rce(s) Supporting Document(s) Thyroid Stimulating Hormone 2.220 uIU/ML 0.358-3.740 Norm al (applies to non- numeric results) [facility] ([facility]) Free T4 0.88 ng/dL 0.76-1.46 Normal (applies to non-numeric resul ts) [facility] ([facility]) ID Date Data Source [id number] 07/19/2020 08:20:00 AM EDT [facility] ([facility]) Name Value Range Interpretation Code Description Data Funmilayo rce(s) Supporting Document(s) Thyroid Stimulating Hormone 3.820 uIU/ML 0.358-3.740 Above high eunice l [facility] ([facility]) Free T4 0.94 ng/dL 0.76-1.46 Normal (applies to non-numeric resul ts) [facility] ([facility]) ID Date Data Source [id number] 04/12/2020 02:57:00 PM EST [facility] ([facility]) Name Value Range Interpretation Code Description Data Funmilayo rce(s) Supporting Document(s) Free T4 0.90 ng/dL 0.76-1.46 Normal (applies to non-numeric resul ts) [facility] ([facility]) Thyroid Stimulating Hormone 3.930 uIU/ML 0.358-3.740 Above high eunice l [facility] ([facility]) ID Date Data Source [id number] 02/23/2020 10:15:00 AM EST [facility] Name Value Range Interpretation Code Description Data Funmilayo rce(s) Supporting Document(s) [facility] 2 [facility] This lab was ordered by [facility] and reported by [facility]. ID Date Data Source [id number] 01/22/2020 07:29:00 AM EDT [facility] ([facility]) Name Value Range Interpretation Code Description Data Funmilayo rce(s) Supporting Document(s) Free T4 0.89 ng/dL 0.76-1.46 Normal (applies to non-numeric resul ts) [facility] ([facility]) Thyroid Stimulating Hormone 3.320 uIU/ML 0.358-3.740 Norm al (applies to non- numeric results) [facility] ([facility]) Procedure Social History Code Duration Value Status Description Data Source(s ) Smoking 02/06/2021 12:00:00 AM EST Patient has never smoked co mpleted Patient has never smoked [facility] ([facility]) Smoking 01/24/2021 12:00:00 AM EDT Never Smoker completed Never S moker eCW1 ([facility]) Smoking 11/14/2020 12:00:00 AM EDT Never Smoker completed Never S moker eCW1 ([facility]) Smoking 11/14/2020 12:00:00 AM EDT Never Smoker completed Never S moker eCW1 ([facility]) Vital Signs ID Date Data Source UNK Name Value Range Interpretation Code Description Data Source(s) Body height 66 [in_i] 66 [in_i] [facility] ([facility]) 5'6" Body weight 143.00 [lb_av] 143.00 [lb_av] MEDEN T ([facility]) [place] body weight 130 [lb_av] 130 [lb_av] [facility] T ([facility]) Body weight 64.865 kg 64.865 kg [facility] ([facility]) Body surface area Derived from formula 1.73 m2 1.73 m2 [facility] ([facility]) Body mass index (BMI) [Ratio] 23.1 kg/m2 23.1 k g/m2 [facility] ([facility]) Heart rate 55 /min 55 /min [facility] ([facility]) Body mass index (BMI) [Ratio] 22.9 kg/m2 22.9 k g/m2 [facility] ([facility]) Body weight 138.00 [lb_av] 138.00 [lb_av] MED[facility] T ([facility]) Oxygen saturation in Arterial blood by Pulse oximetry 99 % 99 % [facility] ([facility]) Body temperature 97.8 [degF] 97.8 [degF] [facility] ([facility]) [place] body weight 125 [lb_av] 125 [lb_av] MED[facility] T ([facility]) Respiratory rate 16 /min 16 /min [facility] ( [facility]) Systolic blood pressure 110 mm[Hg] 110 mm[Hg] [facility] ([facility]) Diastolic blood pressure 62 mm[Hg] 62 mm[Hg] [facility] ([facility]) Body height 65.10 [in_i] 65.10 [in_i] [facility] ([facility]) 5'5.10" Body temperature 98.5 [degF] 98.5 [degF] [facility] ([facility]) Oxygen saturation in Arterial blood by Pulse oximetry 98 % 98 % [facility] ([facility]) [place] body weight 125 [lb_av] 125 [lb_av] MEDEN T ([facility]) Body height 65.10 [in_i] 65.10 [in_i] [facility] ([facility]) 5'5.10" Heart rate 62 /min 62 /min [facility] ([facility]) Respiratory rate 14 /min 14 /min [facility] ( [facility]) Systolic blood pressure 110 mm[Hg] 110 mm[Hg] M EDENT ([facility]) Diastolic blood pressure 64 mm[Hg] 64 mm[Hg] [facility] ([facility]) Body weight 140.12 [lb_av] 140.12 [lb_av] MED[facility] T ([facility]) Body mass index (BMI) [Ratio] 23.2 kg/m2 23.2 k g/m2 [facility] ([facility]) Body weight 138.8 [lb_av] 138.8 [lb_av] eCW1 ([facility]) Body weight 62.96 kg 62.96 kg W1 ([facility]) Body height 66.75 [in_i] 66.75 [in_i] eCW1 ([facility]) Body mass index (BMI) [Ratio] 21.9 kg/m2 21.9 k g/m2 eCW1 ([facility]) Systolic blood pressure 112 mm[Hg] 112 mm[Hg] e CW1 ([facility]) Diastolic blood pressure 66 mm[Hg] 66 mm[Hg] eCW1 ([facility]) Body mass index (BMI) [Ratio] 23.3 kg/m2 23.3 k g/m2 [facility] ([facility]) Diastolic blood pressure 72 mm[Hg] 72 mm[Hg] [facility] ([facility]) Body height 65.10 [in_i] 65.10 [in_i] [facility] ([facility]) 5'5.10" Body weight 140.25 [lb_av] 140.25 [lb_av] MEDEN T ([facility]) Heart rate 86 /min 86 /min [facility] ([facility]) [place] body weight 125 [lb_av] 125 [lb_av] MED[facility] T ([facility]) Systolic blood pressure 118 mm[Hg] 118 mm[Hg] M [facility]ENT ([facility]) Respiratory rate 18 /min 18 /min [facility] ( [facility]) Body temperature 99.1 [degF] 99.1 [degF] [facility] ([facility]) Oxygen saturation in Arterial blood by Pulse oximetry 98 % 98 % [facility] ([facility]) Body weight 139.0 [lb_av] 139.0 [lb_av] eCW1 ([facility]) Body weight 63.05 kg 63.05 kg eCW1 ([facility]) Body height 66.75 [in_i] 66.75 [in_i] eCW1 ([facility]) Body mass index (BMI) [Ratio] 21.93 kg/m2 21.93 kg/m2 W1 ([facility]) Systolic blood pressure 118 mm[Hg] 118 mm[Hg] e CW1 ([facility]) Diastolic blood pressure 72 mm[Hg] 72 mm[Hg] eCW1 ([facility]) Body height 65.10 [in_i] 65.10 [in_i] [facility] ([facility]) 5'5.10" Systolic blood pressure 118 mm[Hg] 118 mm[Hg] M EDENT ([facility]) Diastolic blood pressure 78 mm[Hg] 78 mm[Hg] [facility] ([facility]) Body weight 142.00 [lb_av] 142.00 [lb_av] MEDEN T ([facility]) Body mass index (BMI) [Ratio] 23.6 kg/m2 23.6 k g/m2 [facility] ([facility]) Respiratory rate 18 /min 18 /min [facility] ( [facility]) Body temperature 98.3 [degF] 98.3 [degF] [facility] ([facility]) Oxygen saturation in Arterial blood by Pulse oximetry 98 % 98 % [facility] ([facility]) [place] body weight 125 [lb_av] 125 [lb_av] MEDEN T ([facility]) Systolic blood pressure 112 mm[Hg] 112 mm[Hg] M [facility]ENT ([facility]) Body height 65.10 [in_i] 65.10 [in_i] [facility] ([facility]) 5'5.10" Body weight 146.00 [lb_av] 146.00 [lb_av] MEDEN T ([facility]) Body mass index (BMI) [Ratio] 24.2 kg/m2 24.2 k g/m2 [facility] ([facility]) Heart rate 67 /min 67 /min [facility] ([facility]) Respiratory rate 18 /min 18 /min [facility] ( [facility]) Diastolic blood pressure 60 mm[Hg] 60 mm[Hg] [facility] ([facility]) Body temperature 98.1 [degF] 98.1 [degF] [facility] ([facility]) Oxygen saturation in Arterial blood by Pulse oximetry 97 % 97 % [facility] ([facility]) [place] body weight 125 [lb_av] 125 [lb_av] MEDEN T ([facility]) Diastolic blood pressure 64 mm[Hg] 64 mm[Hg] [facility] ([facility]) Systolic blood pressure 118 mm[Hg] 118 mm[Hg] M [facility] ([facility]) Body height 65.10 [in_i] 65.10 [in_i] [facility] ([facility]) 5'5.10" Body weight 147.12 [lb_av] 147.12 [lb_av] MEDEN T ([facility]) Body mass index (BMI) [Ratio] 24.4 kg/m2 24.4 k g/m2 [facility] ([facility]) Heart rate 100 /min 100 /min [facility] ([facility]) Respiratory rate 18 /min 18 /min [facility] ( [facility]) Body temperature 98.5 [degF] 98.5 [degF] [facility] ([facility]) Oxygen saturation in Arterial blood by Pulse oximetry 98 % 98 % [facility] ([facility]) [place] body weight 125 [lb_av] 125 [lb_av] MEDEN T ([facility]) Systolic blood pressure 98 mm[Hg] 98 mm[Hg] M [facility]ENT ([facility]) Body height 65.10 [in_i] 65.10 [in_i] MEDBHUMIKA ([facility]) 5'5.10" Diastolic blood pressure 60 mm[Hg] 60 mm[Hg] [facility] ([facility]) Body weight 144.00 [lb_av] 144.00 [lb_av] RONNELL Saleh ([facility]) Body mass index (BMI) [Ratio] 23.9 kg/m2 23.9 k g/m2 [facility] ([facility]) Heart rate 68 /min 68 /min [facility] ([facility]) Respiratory rate 16 /min 16 /min [facility] ( [facility]) Body temperature 98.2 [degF] 98.2 [degF] [facility] ([facility]) Oxygen saturation in Arterial blood by Pulse oximetry 99 % 99 % [facility] ([facility]) [place] body weight 125 [lb_av] 125 [lb_av] RONNELL T ([facility]) Patient Treatment Plan of Care Planned Activity Planned Date Details Description Data Source (s) hydroquinone 40 MG/ML Topical Cream 11/14/2020 12:00:00 AM EDT eCW1 ([facility]) hydroquinone 40 MG/ML Topical Cream 11/14/2020 12:00:00 AM EDT eCW1 ([facility])
[2021-02-27] MEDS ORDERED: ISOVUE-370 76% 100ML VIAL As Ordered ONE (21:47)
[2021-02-27 22:04] LABS: HEMATOCRIT 35.9 % (36.0-47.0); HEMOGLOBIN 11.9 g/dl (12.0-15.5); MEAN CORPUSCULAR HEMOGLOBIN 30.6 pg (27.0-33.0); MEAN CORPUSCULAR HGB CONC 33.1 g/dl (32.0-36.5); MEAN CORPUSCULAR VOLUME 92.3 fl (80.0-96.0); PLATELET COUNT, AUTOMATED 180 10^3/uL (150-450); RED BLOOD COUNT 3.89 10^6/uL (4.00-5.40); WHITE BLOOD COUNT 8.6 10^3/uL (4.0-10.0)
[2021-02-27 22:14] LABS: INR 1.01; PROTHROMBIN TIME 13.7 SECONDS (12.7-14.5)
[2021-02-27 22:15] LABS: PARTIAL THROMBOPLASTIN TIME 27.8 SECONDS (25.9-37.0)
--- NOTE | 2021-02-27 22:33 | REPVR ---
PROCEDURE INFORMATION: Exam: CT Chest With Contrast; Diagnostic Exam date and time: 02/27/2021 9:55 PM Age: 35 years old Clinical indication: Other: Subclavicular and axillary lymph node enlargement TECHNIQUE: Imaging protocol: Diagnostic computed tomography of the chest with contrast. Axial, coronal and sagittal reformatted images were created and reviewed. Radiation optimization: All CT scans at this facility use at least one of these dose optimization techniques: automated exposure control; mA and/or kV adjustment per patient size (includes targeted exams where dose is matched to clinical indication); or iterative reconstruction. Contrast material: ISOVUE 370; Contrast volume: 100 ml; Contrast route: INTRAVENOUS (IV); COMPARISON: MRI-Spine,Thoracic without con 04/11/2020 5:05 PM FINDINGS: Lungs: Unremarkable. No consolidation. No mass. Pleural spaces: Unremarkable. No pneumothorax. No pleural effusion. Heart: Unremarkable. No cardiomegaly. No pericardial effusion. Aorta: Unremarkable. No aneurysm or dissection. Lymph nodes: 3 x 1.4 cm right supraclavicular lymph node. 5.1 x 2.5 cm right retropectoral soft tissue nodule, likely an enlarged lymph node. 1.5 x 1.1 cm right axillary lymph node. Bones/joints: No acute osseous abnormality. Soft tissues: Grossly unremarkable. IMPRESSION: Nonspecific right supraclavicular, retropectoral and axillary lymphadenopathy, as described above. Malignancy cannot be excluded. Electronically signed by: Usman Lemus On 02/27/2021 22:32:30 PM
--- NOTE | 2021-02-27 22:36 | REPVR ---
PROCEDURE INFORMATION: Exam: CT Abdomen And Pelvis With Contrast Exam date and time: 02/27/2021 9:55 PM Age: 35 years old Clinical indication: Other: Pooping bright red blood, llq pain TECHNIQUE: Imaging protocol: Computed tomography of the abdomen and pelvis with contrast. Axial, coronal and sagittal reformatted images were created and reviewed. Radiation optimization: All CT scans at this facility use at least one of these dose optimization techniques: automated exposure control; mA and/or kV adjustment per patient size (includes targeted exams where dose is matched to clinical indication); or iterative reconstruction. Contrast material: ISOVUE 370; Contrast volume: 100 ml; Contrast route: INTRAVENOUS (IV); COMPARISON: US PELVIC NON-OB COMPLETE 08/12/2015 12:29 PM FINDINGS: Liver: Unremarkable. Gallbladder and bile ducts: No radiodense gallstones. No biliary ductal dilatation. Pancreas: Unremarkable. Spleen: Unremarkable. Adrenal glands: Normal. No mass. Kidneys and ureters: No mass. No radiodense calculi. No hydronephrosis. Stomach and bowel: Mild left colonic wall thickening with associated mural and pericolonic edema, predominantly in the descending colon. No obstruction. No pneumatosis. Appendix: Normal. Intraperitoneal space: No free fluid. No organized fluid collection. No free air. Vasculature: Unremarkable. No aneurysm. Lymph nodes: No pathologically enlarged lymph nodes. Urinary bladder: Unremarkable as visualized. Reproductive: Unremarkable. Bones/joints: No acute osseous abnormality. Mild degenerative changes. Soft tissues: Unremarkable. IMPRESSION: 1. Nonspecific left-sided colitis, as described above. 2. Additional findings, as above. Electronically signed by: Usman Lemus On 02/27/2021 22:35:46 PM
[2021-02-27] MEDS ORDERED: CIPR-249 PO (22:44)
[2021-02-27] MEDS ORDERED: METR-265 PO (22:44)
[2021-02-27] MEDS ORDERED: CIPROFLOXACIN 500MG TABLET PO ONE (22:55)
[2021-02-27] MEDS ORDERED: metroNIDAZOLE (FLAGYL) 500MG TABLET PO ONE (22:55)
[2021-02-27 23:10] VITALS: BP 125/72
== END 2021-02-27 23:11 | disposition home or self-care (01) ==
LOC: M ED 18:28
DX: K52.9 Noninfective gastroenteritis and colitis, unspecified (principal); R59.9 Enlarged lymph nodes, unspecified; E03.9 Hypothyroidism, unspecified; Z79.899 Other long term (current) drug therapy; Z91.010 Allergy to peanuts
CPT/HCPCS: 71260; 74177; 80053; 84702; 85027; 85610; 85730; 86850; 86900; 86901; 87505; 99283; Q9967

== ENCOUNTER → 2021-03-01 | Outpatient (CLI) | payer BC ==
[~2021-03-01] MED LIST changes: +CIPR-249 PO; +METR-265 PO
[2021-03-01 15:37] LABS: BASO % 0.3 % (0.0-1.0); EOS # 0.1 10^3/uL (0.0-0.5); EOS % 1.2 % (0.0-3.0); HEMATOCRIT 36.6 % (36.0-47.0); HEMOGLOBIN 12.4 g/dl (12.0-15.5); LYMPH # 0.9 10^3/uL (1.5-5.0); LYMPH % 14.2 % (24.0-44.0); MEAN CORPUSCULAR HGB CONC 33.9 g/dl (32.0-36.5); MEAN CORPUSCULAR VOLUME 91.5 fl (80.0-96.0); MONO # 0.3 10^3/uL (0.0-0.8); MONO % 5.7 % (2.0-8.0); NEUTROPHILS # 4.7 10^3/uL (1.5-8.5); NEUTROPHILS % 77.9 % (36.0-66.0); PLATELET COUNT, AUTOMATED 214 10^3/uL (150-450)
[2021-03-01 15:49] LABS: INR 0.92; PARTIAL THROMBOPLASTIN TIME 26.5 SECONDS (25.9-37.0); PROTHROMBIN TIME 12.7 SECONDS (12.7-14.5)
[2021-03-01 16:34] LABS: HCG, SERUM QUANTITATIVE < 1.0 MIU/ML; LUTEINIZING HORMONE 3.4 mIU/mL; PROLACTIN 11.2 NG/ML
== END ==
LOC: M LAB 14:39
PROVIDERS: ATTEND Obstetrics & Gynecology
DX: E28.2 Polycystic ovarian syndrome (principal); N92.0 Excessive and frequent menstruation with regular cycle

== ENCOUNTER 2021-03-23 08:31 | Day surgery (SDC) | payer BC ==
[~2021-03-23] VITALS: Ht 167.6 cm; Wt 62.8 kg
[~2021-03-23 08:31] MED LIST changes: +CVS1CAP2 PO; +LR 1,000 ML IV ONE; +NATU1TAB5 PO; +QUERPOW2 PO; -QUERPOW2 XX; +ZINC1TAB2 PO; +rose hips PO
[2021-03-23] MEDS ORDERED: LIDOCAINE 2% 100MG/5ML SDV (FOR ANES.) As Ordered ONE (09:25)
[2021-03-23] MEDS ORDERED: MIDAZOLAM INJ 2MG/2ML VIAL (J2250 PER 1MG) As Ordered ONE (09:25)
[2021-03-23] MEDS ORDERED: propofoL 200 MG/20 ML VIAL As Ordered ONE (09:25)
[2021-03-23] MEDS ORDERED: ROCURONIUM BROMIDE 50 MG/5 ML VIAL As Ordered ONE (09:25)
[2021-03-23] MEDS ORDERED: fentaNYL 100 MCG/2 ML INJECTION (J3010) As Ordered ONE (09:25)
[2021-03-23] MEDS ORDERED: dexameTHASONE 4 MG/ML 1ML VIAL (J1100 PER 1MG) As Ordered ONE (09:27)
[2021-03-23] MEDS ORDERED: ONDANSETRON 4MG/2ML VIAL As Ordered ONE (09:27)
[2021-03-23] MEDS ORDERED: LIDOCAINE W/EPINEPHRINE 1% 20ML VIAL As Ordered ONE (10:16)
[2021-03-23] MEDS ORDERED: BACITRACIN OINTMENT 30GM TUBE As Ordered ONE (10:16)
[2021-03-23] MEDS ORDERED: ACETAMINOPHEN 1000MG 100ML IV BTL (OFIRMEV) (J0131 PER 10MG) As Ordered ONE (10:54)
[2021-03-23] MEDS ORDERED: KETOROLAC 60MG 2ML VIAL As Ordered ONE (11:02)
[2021-03-23] MEDS ORDERED: SUGAMMADEX SODIUM 500 MG/5 ML VIAL (BRIDION) As Ordered ONE (11:02)
[2021-03-23] MEDS ORDERED: REFRIGERATOR IV KEYS XX PRN (12:04)
[2021-03-23] MEDS ORDERED: NALOXONE INJ 0.4MG/1ML VIAL (J2310 PER 1MG) IV PRN (12:04)
[2021-03-23] MEDS ORDERED: FENTANYL/ROPIVACAINE/NACL BAG 100 ML EPIDURAL SCH (12:04)
[2021-03-23] MEDS ORDERED: EPIDURAL COMMENT XX SCH (12:04)
[2021-03-23] MEDS ORDERED: EPIDURAL/PCA KEYS XX PRN (12:04)
[2021-03-23] MEDS ORDERED: ONDANSETRON 4MG/2ML VIAL IV PRN ×2 (12:04→12:15)
[2021-03-23] MEDS ORDERED: diphenhydrAMINE 50MG/ML VIAL (J1200) IV PRN (12:04)
[2021-03-23] MEDS ORDERED: oxyCODONE 5MG TAB PO PRN (12:15)
[2021-03-23] MEDS ORDERED: LR 1,000 ML IV SCH (12:15)
[2021-03-23] MEDS ORDERED: MORPHINE 2 MG/ML 1ML VIAL (J2270) IV PRN (12:15)
[2021-03-23] MEDS ORDERED: fentaNYL 100 MCG/2 ML INJECTION (J3010) IV PRN (12:15)
[2021-03-23 12:55] VITALS: BP 127/74
--- NOTE | 2021-03-24 09:51 | RO ---
OPERATIVE NOTE DATE OF OPERATION: 03/23/2021 PREOPERATIVE DIAGNOSIS: Right neck mass. POSTOPERATIVE DIAGNOSIS: Right neck mass. PROCEDURE: Exploration right neck. SURGEON: Roshan Chaudhary MD FENCE SETTER: ANESTHESIA: INDICATION: The patient has a swelling just beneath the clavicle on the right side. She had one above the clavicle. I did talk to her before and said that the one above the clavicle may be easier to access but she preferred the one on her chest. Looking at the CT scan it is beneath the pectoralis muscle. DESCRIPTION OF PROCEDURE: Under general anesthesia with patient intubated the patient was prepped and draped in usual manner. I divided skin and subcutaneous tissues. I used Harmonic scalpel. I went down to the pectoralis muscle and then the bands of muscle until I came to the mass. The mass was actually quite deep and large so I elected to not go any further because I was in an area that was unfamiliar to me. There was very little bleeding. I closed the wound with 4-0 Monocryl and 4-0 Prolene. The patient was extubated and transferred to recovery room in excellent condition.
== END 2021-03-23 12:58 | disposition home or self-care (01) ==
LOC: M SDC 08:31
PROVIDERS: ATTEND Otolaryngology
DX: R22.1 Localized swelling, mass and lump, neck (principal); E03.9 Hypothyroidism, unspecified; M06.9 Rheumatoid arthritis, unspecified; K51.90 Ulcerative colitis, unspecified, without complications; M35.00 Sjogren syndrome, unspecified; D68.0 Von Willebrand disease; D66 Hereditary factor VIII deficiency; Z79.899 Other long term (current) drug therapy; Z91.010 Allergy to peanuts
CPT/HCPCS: 32999; 81025; J0131; J1100; J2250; J2405; J3010

== ENCOUNTER 2021-05-03 12:26 | Day surgery (SDC) | payer BC ==
[~2021-05-03] VITALS: Ht 167.6 cm; Wt 64.8 kg
[~2021-05-03 12:26] MED LIST changes: -LR 1,000 ML IV ONE; +NORG1TAB4 PO; +NS 1,000 ML IV ONE
[2021-05-03] MEDS ORDERED: LIDOCAINE 2% 100MG/5ML SDV (FOR ANES.) As Ordered ONE (13:17)
[2021-05-03] MEDS ORDERED: propofoL 500 MG/50 ML VIAL As Ordered ONE (13:17)
[2021-05-03 14:35] VITALS: BP 116/67
== END 2021-05-03 14:50 | disposition home or self-care (01) ==
LOC: M OPP 12:26
PROVIDERS: ATTEND Surgery
DX: K62.5 Hemorrhage of anus and rectum (principal); R93.3 Abnormal findings on diagnostic imaging of other parts of digestive tract; K55.069 Acute infarction of intestine, part and extent unspecified; Z79.899 Other long term (current) drug therapy; Z91.010 Allergy to peanuts

== ENCOUNTER → 2021-05-31 | Outpatient (CLI) | payer BC ==
[~2021-05-31] MED LIST changes: -NS 1,000 ML IV ONE
== END ==
LOC: M RAD 14:49
PROVIDERS: ATTEND Surgery
DX: R59.1 Generalized enlarged lymph nodes (principal)

== ENCOUNTER → 2021-06-14 | Outpatient (REF) | payer BC | LOC: M SFHCDERM 17:27 | PROVIDERS: ATTEND Physician Assistant | DX: D22.21 Melanocytic nevi of right ear and external auricular canal (principal); D22.39 Melanocytic nevi of other parts of face; D22.5 Melanocytic nevi of trunk ==

== ENCOUNTER → 2021-07-14 | Outpatient (CLI) | payer BC ==
[2021-07-14 08:03] LABS: BASO % 0.6 % (0.0-1.0); EOS # 0.1 10^3/uL (0.0-0.5); EOS % 2.3 % (0.0-3.0); HEMATOCRIT 39.1 % (36.0-47.0); LYMPH # 1.3 10^3/uL (1.5-5.0); LYMPH % 27.3 % (24.0-44.0); MEAN CORPUSCULAR HEMOGLOBIN 30.2 pg (27.0-33.0); MEAN CORPUSCULAR HGB CONC 33.2 g/dl (32.0-36.5); MEAN CORPUSCULAR VOLUME 90.7 fl (80.0-96.0); MONO # 0.4 10^3/uL (0.0-0.8); MONO % 9.1 % (2.0-8.0); NEUTROPHILS # 2.9 10^3/uL (1.5-8.5); NEUTROPHILS % 60.5 % (36.0-66.0); PLATELET COUNT, AUTOMATED 228 10^3/uL (150-450); RED BLOOD COUNT 4.31 10^6/uL (4.00-5.40); WHITE BLOOD COUNT 4.7 10^3/uL (4.0-10.0)
[2021-07-14 08:32] LABS: ERYTHROCYTE SEDIMENTATION RATE 6 mm/hr (0-20)
[2021-07-14 08:38] LABS: ALBUMIN 3.8 GM/DL (3.2-5.2); ALT/SGPT 20 U/L (12-78); BILIRUBIN,TOTAL 0.3 MG/DL (0.2-1.0); BLOOD UREA NITROGEN 14 MG/DL (7-18); CALCIUM LEVEL 9.1 MG/DL (8.5-10.1); CARBON DIOXIDE LEVEL 28 MEQ/L (21-32); CHLORIDE LEVEL 106 MEQ/L (98-107); CREATININE FOR GFR 0.75 MG/DL (0.55-1.30); GLOMERULAR FILTRATION RATE > 60.0 (>60); GLUCOSE, FASTING 82 MG/DL (70-100); POTASSIUM SERUM 4.3 MEQ/L (3.5-5.1); SODIUM LEVEL 141 MEQ/L (136-145); TOTAL PROTEIN 6.8 GM/DL (6.4-8.2)
== END ==
LOC: M LAB 06:59
PROVIDERS: ATTEND Internal Medicine Rheumatology
DX: M35.00 Sjogren syndrome, unspecified (principal); R22.2 Localized swelling, mass and lump, trunk; Z79.899 Other long term (current) drug therapy

== ENCOUNTER → 2022-01-15 | Outpatient (CLI) | payer BC ==
[~2022-01-15] MED LIST changes: -NORG1TAB4 PO; +NORG1TAB40 PO
[2022-01-15 08:43] LABS: BASO % 0.8 % (0.0-1.0); EOS # 0.1 10^3/uL (0.0-0.5); EOS % 3.5 % (0.0-3.0); HEMATOCRIT 37.5 % (36.0-47.0); LYMPH # 1.1 10^3/uL (1.5-5.0); LYMPH % 27.1 % (24.0-44.0); MEAN CORPUSCULAR HEMOGLOBIN 29.6 pg (27.0-33.0); MEAN CORPUSCULAR VOLUME 92.6 fl (80.0-96.0); MONO # 0.3 10^3/uL (0.0-0.8); MONO % 7.6 % (2.0-8.0); NEUTROPHILS # 2.4 10^3/uL (1.5-8.5); NEUTROPHILS % 60.5 % (36.0-66.0); PLATELET COUNT, AUTOMATED 219 10^3/uL (150-450); RED BLOOD COUNT 4.05 10^6/uL (4.00-5.40)
[2022-01-15 09:36] LABS: ALBUMIN 3.5 GM/DL (3.2-5.2); ALT/SGPT 20 U/L (12-78); BILIRUBIN,TOTAL 0.3 MG/DL (0.2-1.0); BLOOD UREA NITROGEN 15 MG/DL (7-18); CALCIUM LEVEL 8.8 MG/DL (8.5-10.1); CARBON DIOXIDE LEVEL 29 MEQ/L (21-32); CHLORIDE LEVEL 107 MEQ/L (98-107); CHOLESTEROL LEVEL 175 MG/DL (<200); CHOLESTEROL RISK RATIO 2.692 (<5); CREATININE FOR GFR 0.77 MG/DL (0.55-1.30); FREE T4 0.84 NG/DL (0.76-1.46); GLOMERULAR FILTRATION RATE > 60.0 (>60); GLUCOSE, FASTING 89 MG/DL (70-100); HDL CHOLESTEROL 65 MG/DL (>40); LDL CHOLESTEROL 101 MG/DL (<100); NON-HDL-C 110 MG/DL; POTASSIUM SERUM 4.3 MEQ/L (3.5-5.1); SODIUM LEVEL 139 MEQ/L (136-145); TOTAL PROTEIN 6.5 GM/DL (6.4-8.2); TRIGLYCERIDES LEVEL 46 MG/DL (<150)
== END ==
LOC: M LAB 07:02
PROVIDERS: ATTEND Family Medicine
DX: E03.9 Hypothyroidism, unspecified (principal); Z13.0 Encounter for screening for diseases of the blood and blood-forming organs and certain disorders involving the immune mechanism; Z13.220 Encounter for screening for lipoid disorders; Z13.29 Encounter for screening for other suspected endocrine disorder

== ENCOUNTER → 2022-01-29 | Outpatient (CLI) | payer BC ==
[2022-01-29 12:57] LABS: FREE T3 2.6 PG/ML (2.2-4.0); FREE T4 0.81 NG/DL (0.76-1.46)
[2022-01-29 13:52] LABS: PTH INTACT 37.9 PG/ML (18.5-88.0); THYROGLOBULIN ANTIBODY 177.7 U/ML (<60.0); THYROID PEROXIDASE ANTIBODY < 28.0 U/ML (<60.0)
== END ==
LOC: M LAB 11:22
PROVIDERS: ATTEND Family Medicine
DX: M05.70 Rheumatoid arthritis with rheumatoid factor of unspecified site without organ or systems involvement (principal); E03.9 Hypothyroidism, unspecified

== ENCOUNTER → 2022-03-06 | Outpatient (CLI) | payer BC ==
[2022-03-06 12:44] LABS: BASO % 0.4 % (0.0-1.0); EOS # 0.1 10^3/uL (0.0-0.5); EOS % 1.2 % (0.0-3.0); HEMATOCRIT 38.8 % (36.0-47.0); HEMOGLOBIN 12.4 g/dl (12.0-15.5); LYMPH # 1.2 10^3/uL (1.5-5.0); LYMPH % 17.3 % (24.0-44.0); MEAN CORPUSCULAR HEMOGLOBIN 29.2 pg (27.0-33.0); MEAN CORPUSCULAR VOLUME 91.5 fl (80.0-96.0); MONO # 0.4 10^3/uL (0.0-0.8); MONO % 5.2 % (2.0-8.0); NEUTROPHILS # 5.1 10^3/uL (1.5-8.5); NEUTROPHILS % 75.5 % (36.0-66.0); PLATELET COUNT, AUTOMATED 245 10^3/uL (150-450); RED BLOOD COUNT 4.24 10^6/uL (4.00-5.40); WHITE BLOOD COUNT 6.7 10^3/uL (4.0-10.0)
[2022-03-06 12:49] LABS: APPEARANCE, URINE MANUAL CLEAR (CLEAR); COLOR, URINE MANUAL YELLOW (YELLOW)
[2022-03-06 12:50] LABS: BILIRUBIN, URINE MANUAL NEGATIVE (NEGATIVE); GLUCOSE, URINE (UA) MANUAL NEGATIVE (NEGATIVE); KETONE, URINE MANUAL NEGATIVE (NEGATIVE); LEUKOCYTE ESTERASE, URINE MAN TRACE (NEGATIVE); NITRITE, URINE MANUAL NEGATIVE (NEGATIVE); PROTEIN, URINE MANUAL NEGATIVE (NEGATIVE); UROBILINOGEN, URINE MANUAL NORMAL (NORMAL)
[2022-03-06 12:51] LABS: BLOOD URINE MANUAL NEGATIVE (NEGATIVE)
[2022-03-06 13:00] LABS: TOTAL PROTEIN,RANDOM URINE 14.8 MG/DL (0.0-14.0)
[2022-03-06 13:05] LABS: C REACTIVE PROTEIN QUANTITATIV < 0.40 MG/DL (<1.0)
[2022-03-06 13:05] LABS: CREATININE,RANDOM URINE 106.3 MG/DL
[2022-03-06 13:06] LABS: COMPLEMENT C3 78.5 MG/DL (84.0-160.0); COMPLEMENT C4 15.9 MG/DL (12-36)
[2022-03-06 13:18] LABS: RBC, URINE 0-1 /hpf (0-3); SQUAMOUS EPITHELIAL CELL URINE SMALL AMOUNT /hpf (SMALL AMT); WBC, URINE 0-1 /hpf (0-3)
[2022-03-06 13:19] LABS: BACTERIA, URINE SMALL AMOUNT; HYALINE CAST, URINE NONE SEEN /lpf (0-1)
[2022-03-06 13:23] LABS: ERYTHROCYTE SEDIMENTATION RATE 10 mm/hr (0-20)
[2022-03-06 13:34] LABS: ALKALINE PHOSPHATASE 41 U/L (46-116); ALT/SGPT 15 U/L (7.0-40); AST/SGOT 21 U/L (<34); BILIRUBIN,TOTAL 0.5 MG/DL (0.3-1.2); BLOOD UREA NITROGEN 14 MG/DL (9-23); CALCIUM LEVEL 8.9 MG/DL (8.5-10.1); CARBON DIOXIDE LEVEL 28 MMOL/L (20-31); CHLORIDE LEVEL 104 MMOL/L (98-107); CREATININE FOR GFR 0.98 MG/DL (0.55-1.30); GLOMERULAR FILTRATION RATE > 60.0 (>60); GLUCOSE, FASTING 88 MG/DL (60-100); POTASSIUM SERUM 4.2 MMOL/L (3.5-5.1); SODIUM LEVEL 138 MMOL/L (136-145)
[2022-03-09 12:08] LABS: ANTI DS-DNA AB Negative (Negative)
== END ==
LOC: M LAB 11:38
PROVIDERS: ATTEND Internal Medicine Rheumatology
DX: M35.00 Sjogren syndrome, unspecified (principal); Z79.899 Other long term (current) drug therapy; R22.2 Localized swelling, mass and lump, trunk

== ENCOUNTER → 2022-03-06 | Outpatient (CLI) | payer BC ==
[2022-03-06 13:30] LABS: HEPATITIS B SURFACE ANTIGEN NEGATIVE (NEGATIVE)
[2022-03-06 13:42] LABS: HIV 1&2 SCREEN CENTAUR NEGATIVE (NEGATIVE)
[2022-03-06 13:50] LABS: HEPATITIS C VIRUS ABY INDEX 0.1 INDEX (<0.8)
== END ==
LOC: M LAB 11:37
PROVIDERS: ATTEND Advanced Practice Midwife
DX: Z12.4 Encounter for screening for malignant neoplasm of cervix (principal); Z11.3 Encounter for screening for infections with a predominantly sexual mode of transmission
CPT/HCPCS: 36415; 86780; 86803; 87340; 87389; 87624; G0123

== ENCOUNTER → 2022-03-09 | Outpatient (CLI) | payer BC ==
[~2022-03-09] MED LIST changes: +PROHANCE 279.3MG/ML 15ML VIAL As Ordered ONE
== END ==
LOC: M RAD 08:27
DX: R59.0 Localized enlarged lymph nodes (principal); J32.9 Chronic sinusitis, unspecified; J34.1 Cyst and mucocele of nose and nasal sinus
CPT/HCPCS: 70543; 70553; A9576

== ENCOUNTER → 2022-06-21 | Outpatient (CLI) | payer BC ==
[~2022-06-21] MED LIST changes: -PROHANCE 279.3MG/ML 15ML VIAL As Ordered ONE
[2022-06-27 10:09] LABS: ARSENIC 4 ug/L (0-9); CHROMIUM PLASMA 1.1 ug/L (0.1-2.1); LEAD BLOOD ADULT <1.0 ug/dL (0.0-3.4); MERCURY LEVEL <1.0 ug/L (0.0-14.9); ZINC PLASMA 82 ug/dL (44-115)
== END ==
LOC: M LAB 16:09
PROVIDERS: ATTEND Internal Medicine
DX: D47.Z2 Castleman disease (principal)

== ENCOUNTER → 2022-08-08 | Outpatient (CLI) | payer BC ==
[~2022-08-08] MED LIST changes: +ISOVUE-370 76% 100ML VIAL As Ordered ONE
== END ==
LOC: M RAD 13:57
PROVIDERS: ATTEND Thoracic Surgery (Cardiothoracic Vascular Surgery)
DX: R22.2 Localized swelling, mass and lump, trunk (principal)
CPT/HCPCS: 70491; 71260; Q9967

== ENCOUNTER → 2022-11-20 | Outpatient (CLI) | payer BC ==
[~2022-11-20] MED LIST changes: -ISOVUE-370 76% 100ML VIAL As Ordered ONE
== END ==
LOC: M RAD 07:58
PROVIDERS: ATTEND Family Medicine
DX: M75.41 Impingement syndrome of right shoulder (principal)

== ENCOUNTER → 2022-12-03 | Outpatient (CLI) | payer BC ==
[2022-12-03 08:19] LABS: BASO % 0.4 % (0.0-1.0); EOS # 0.1 10^3/uL (0.0-0.5); EOS % 1.3 % (0.0-3.0); HEMATOCRIT 37.9 % (36.0-47.0); HEMOGLOBIN 12.4 g/dl (12.0-15.5); LYMPH # 0.7 10^3/uL (1.5-5.0); LYMPH % 15.8 % (24.0-44.0); MEAN CORPUSCULAR HEMOGLOBIN 30.2 pg (27.0-33.0); MEAN CORPUSCULAR HGB CONC 32.7 g/dl (32.0-36.5); MEAN CORPUSCULAR VOLUME 92.4 fl (80.0-96.0); MONO # 0.3 10^3/uL (0.0-0.8); MONO % 5.8 % (2.0-8.0); NEUTROPHILS # 3.4 10^3/uL (1.5-8.5); NEUTROPHILS % 76.5 % (36.0-66.0); PLATELET COUNT, AUTOMATED 224 10^3/uL (150-450); WHITE BLOOD COUNT 4.5 10^3/uL (4.0-10.0)
[2022-12-03 09:04] LABS: ALBUMIN 3.6 G/DL (3.2-5.2); CARBON DIOXIDE LEVEL 27 MMOL/L (20-31); CHLORIDE LEVEL 105 MMOL/L (98-107); POTASSIUM SERUM 4.4 MMOL/L (3.5-5.1); SODIUM LEVEL 136 MMOL/L (136-145)
[2022-12-03 09:08] LABS: IRON (FE) 108 UG/DL (50-170); PERCENT SATURATION 30.3 % (13.2-45.0); TOTAL IRON BINDING CAPACITY 357 UG/DL (250-425)
[2022-12-03 09:15] LABS: ALKALINE PHOSPHATASE 42 U/L (46-116); ALT/SGPT 21 U/L (7.0-40); AST/SGOT 17 U/L (<34); BILIRUBIN,TOTAL 0.5 MG/DL (0.3-1.2); BLOOD UREA NITROGEN 13 MG/DL (9-23); CALCIUM LEVEL 8.8 MG/DL (8.5-10.1); CHOLESTEROL LEVEL 205 MG/DL (<200); CREATININE FOR GFR 0.88 MG/DL (0.55-1.30); FERRITIN 23.2 NG/ML (7.3-270.7); FREE T4 0.98 NG/DL (0.89-1.76); GLOMERULAR FILTRATION RATE > 60.0 (>60); GLUCOSE, FASTING 84 MG/DL (60-100); TOTAL PROTEIN 6.8 G/DL (5.7-8.2); TRIGLYCERIDES LEVEL 41 MG/DL (<150)
[2022-12-03 13:16] LABS: CHOLESTEROL RISK RATIO 2.93 (<5); HDL CHOLESTEROL 69.8 MG/DL (>40); NON-HDL-C 135.2 MG/DL
== END ==
LOC: M LAB 07:31
PROVIDERS: ATTEND Family Medicine
DX: Z13.0 Encounter for screening for diseases of the blood and blood-forming organs and certain disorders involving the immune mechanism (principal); M05.70 Rheumatoid arthritis with rheumatoid factor of unspecified site without organ or systems involvement; Z13.220 Encounter for screening for lipoid disorders; Z13.29 Encounter for screening for other suspected endocrine disorder

== ENCOUNTER 2023-01-21 12:15 | Outpatient (RCR) | payer BC | END 2023-01-22 | LOC: M PT 12:15 | PROVIDERS: ATTEND Family Medicine | DX: M75.41 Impingement syndrome of right shoulder (principal) ==

== ENCOUNTER 2023-02-19 14:28 | Outpatient (RCR) | payer BC | END 2023-02-21 | LOC: M PT 14:28 | PROVIDERS: ATTEND Family Medicine | DX: M75.41 Impingement syndrome of right shoulder (principal) ==

== ENCOUNTER → 2023-03-04 | Outpatient (CLI) | payer BC ==
[2023-03-04 07:50] LABS: BASO % 0.2 % (0.0-1.0); EOS # 0.1 10^3/uL (0.0-0.5); EOS % 2.2 % (0.0-3.0); HEMATOCRIT 36.4 % (36.0-47.0); HEMOGLOBIN 12.2 g/dl (12.0-15.5); LYMPH # 1.1 10^3/uL (1.5-5.0); LYMPH % 21.6 % (24.0-44.0); MEAN CORPUSCULAR HEMOGLOBIN 30.7 pg (27.0-33.0); MEAN CORPUSCULAR HGB CONC 33.5 g/dl (32.0-36.5); MEAN CORPUSCULAR VOLUME 91.5 fl (80.0-96.0); MONO # 0.4 10^3/uL (0.0-0.8); MONO % 8.1 % (2.0-8.0); NEUTROPHILS # 3.4 10^3/uL (1.5-8.5); NEUTROPHILS % 67.5 % (36.0-66.0); PLATELET COUNT, AUTOMATED 236 10^3/uL (150-450); RED BLOOD COUNT 3.98 10^6/uL (4.00-5.40); WHITE BLOOD COUNT 5.1 10^3/uL (4.0-10.0)
[2023-03-04 07:50] LABS: APPEARANCE, URINE HAZY (CLEAR); BACTERIA, URINE AUTO NEGATIVE (NEGATIVE); BILIRUBIN, URINE AUTO NEGATIVE (NEGATIVE); BLOOD, URINE BLOOD NEGATIVE (NEGATIVE); COLOR, URINE AMBER (YELLOW); GLUCOSE, URINE (UA) AUTO NEGATIVE (NEGATIVE); KETONE, URINE AUTO NEGATIVE (NEGATIVE); LEUKOCYTE ESTERASE, URINE AUTO NEGATIVE (NEGATIVE); MUCUS, URINE SMALL (NEGATIVE); NITRITE, URINE AUTO NEGATIVE (NEGATIVE); PROTEIN, URINE AUTO NEGATIVE (NEGATIVE); RBC, URINE AUTO 0 /HPF (0-3); SPECIFIC GRAVITY URINE AUTO 1.023 (1.002-1.035); SQUAMOUS EPITHELIAL CELL UR AU 1 /HPF (0-6); UROBILINOGEN, URINE AUTO 0.2 mg/dL (0.0-2.0); WBC, URINE AUTO 1 /HPF (0-3)
[2023-03-04 08:13] LABS: ERYTHROCYTE SEDIMENTATION RATE 7 mm/hr (0-20)
[2023-03-04 08:16] LABS: TOTAL PROTEIN,RANDOM URINE 11.9 MG/DL (0.0-14.0)
[2023-03-04 08:19] LABS: C REACTIVE PROTEIN QUANTITATIV < 0.40 MG/DL (<1.0)
[2023-03-04 08:21] LABS: CREATININE,RANDOM URINE 194.2 MG/DL
[2023-03-04 08:21] LABS: ALBUMIN 3.5 G/DL (3.2-5.2); ALKALINE PHOSPHATASE 40 U/L (46-116); ALT/SGPT 19 U/L (7.0-40); AST/SGOT 24 U/L (<34); BILIRUBIN,TOTAL 0.6 MG/DL (0.3-1.2); BLOOD UREA NITROGEN 12 MG/DL (9-23); CALCIUM LEVEL 8.9 MG/DL (8.5-10.1); CARBON DIOXIDE LEVEL 29 MMOL/L (20-31); CHLORIDE LEVEL 107 MMOL/L (98-107); CREATININE FOR GFR 1.08 MG/DL (0.55-1.30); GLOMERULAR FILTRATION RATE > 60.0 (>60); GLUCOSE, FASTING 78 MG/DL (60-100); POTASSIUM SERUM 4.3 MMOL/L (3.5-5.1); SODIUM LEVEL 142 MMOL/L (136-145); TOTAL PROTEIN 6.2 G/DL (5.7-8.2)
[2023-03-04 08:22] LABS: COMPLEMENT C4 17.8 MG/DL (12-36)
== END ==
LOC: M LAB 07:11
PROVIDERS: ATTEND Internal Medicine Rheumatology
DX: M35.00 Sjogren syndrome, unspecified (principal)

== ENCOUNTER → 2023-08-21 | Outpatient (CLI) | payer BC ==
[2023-08-21 07:34] LABS: BASO % 0.5 % (0.0-1.0); EOS # 0.1 10^3/uL (0.0-0.5); EOS % 1.4 % (0.0-3.0); HEMATOCRIT 39.1 % (36.0-47.0); HEMOGLOBIN 12.6 g/dl (12.0-15.5); LYMPH # 1.2 10^3/uL (1.5-5.0); MEAN CORPUSCULAR HEMOGLOBIN 30.2 pg (27.0-33.0); MEAN CORPUSCULAR HGB CONC 32.2 g/dl (32.0-36.5); MEAN CORPUSCULAR VOLUME 93.8 fl (80.0-96.0); MONO # 0.4 10^3/uL (0.0-0.8); MONO % 6.2 % (2.0-8.0); NEUTROPHILS # 4.1 10^3/uL (1.5-8.5); NEUTROPHILS % 71.6 % (36.0-66.0); PLATELET COUNT, AUTOMATED 206 10^3/uL (150-450); RED BLOOD COUNT 4.17 10^6/uL (4.00-5.40); WHITE BLOOD COUNT 5.8 10^3/uL (4.0-10.0)
[2023-08-21 07:45] LABS: APPEARANCE, URINE CLEAR (CLEAR); BACTERIA, URINE AUTO NEGATIVE (NEGATIVE); BILIRUBIN, URINE AUTO NEGATIVE (NEGATIVE); BLOOD, URINE BLOOD NEGATIVE (NEGATIVE); COLOR, URINE YELLOW (YELLOW); GLUCOSE, URINE (UA) AUTO NEGATIVE (NEGATIVE); KETONE, URINE AUTO NEGATIVE (NEGATIVE); LEUKOCYTE ESTERASE, URINE AUTO NEGATIVE (NEGATIVE); MUCUS, URINE SMALL (NEGATIVE); NITRITE, URINE AUTO NEGATIVE (NEGATIVE); PROTEIN, URINE AUTO NEGATIVE (NEGATIVE); RBC, URINE AUTO 0 /HPF (0-3); SPECIFIC GRAVITY URINE AUTO 1.024 (1.002-1.035); SQUAMOUS EPITHELIAL CELL UR AU 0 /HPF (0-6); UROBILINOGEN, URINE AUTO 0.2 mg/dL (0.0-2.0); WBC, URINE AUTO 0 /HPF (0-3)
[2023-08-21 07:54] LABS: TOTAL PROTEIN,RANDOM URINE 15.1 MG/DL (0.0-14.0)
[2023-08-21 07:58] LABS: C REACTIVE PROTEIN QUANTITATIV < 0.40 MG/DL (<1.0)
[2023-08-21 08:00] LABS: ALBUMIN 3.5 G/DL (3.2-5.2); ALKALINE PHOSPHATASE 40 U/L (46-116); ALT/SGPT 16 U/L (7.0-40); AST/SGOT 10 U/L (<34); BILIRUBIN,TOTAL 0.3 MG/DL (0.3-1.2); BLOOD UREA NITROGEN 14 MG/DL (9-23); CALCIUM LEVEL 8.2 MG/DL (8.5-10.1); CARBON DIOXIDE LEVEL 28 MMOL/L (20-31); CHLORIDE LEVEL 111 MMOL/L (98-107); CREATININE FOR GFR 0.79 MG/DL (0.55-1.30); GLOMERULAR FILTRATION RATE > 60.0 (>60); GLUCOSE, FASTING 93 MG/DL (60-100); IMMUNOGLOBULIN A 231.5 MG/DL (40-350); POTASSIUM SERUM 4.7 MMOL/L (3.5-5.1); SODIUM LEVEL 142 MMOL/L (136-145); TOTAL PROTEIN 6.3 G/DL (5.7-8.2)
[2023-08-21 08:01] LABS: COMPLEMENT C4 15.7 MG/DL (12-36); IMMUNOGLOBULIN G 897 MG/DL (650-1600)
[2023-08-21 08:02] LABS: ERYTHROCYTE SEDIMENTATION RATE 9 mm/hr (0-20)
[2023-08-22 08:35] LABS: CRYOGLOBULINS NEGATIVE (NEGATIVE)
[2023-08-23 18:07] LABS: ANTI DS-DNA AB Negative (Negative); COMPLEMENT TOTAL (CH50) 50 U/mL (>41)
== END ==
LOC: M LAB 06:20
PROVIDERS: ATTEND Internal Medicine Rheumatology
DX: M35.00 Sjogren syndrome, unspecified (principal); R22.2 Localized swelling, mass and lump, trunk; Z79.899 Other long term (current) drug therapy

== ENCOUNTER → 2023-12-31 | Outpatient (REF) | payer BC ==
[2023-12-31 21:28] LABS: GC DNA AMPLIFICATION NEGATIVE (NEGATIVE)
== END ==
LOC: M PLALAB 16:15
PROVIDERS: ATTEND Advanced Practice Midwife
DX: Z12.4 Encounter for screening for malignant neoplasm of cervix (principal)
CPT/HCPCS: 87624; 87810; 87850; G0123

== ENCOUNTER → 2024-01-16 | Outpatient (CLI) | payer BC ==
[2024-01-16 20:47] LABS: HEPATITIS B SURFACE ANTIGEN NEGATIVE (NEGATIVE)
[2024-01-16 20:59] LABS: HIV 1&2 SCREEN NEGATIVE (NEGATIVE)
[2024-01-16 21:08] LABS: HEPATITIS C VIRUS ABY INDEX 0.04 INDEX (<0.8)
== END ==
LOC: M LAB 06:52
PROVIDERS: ATTEND Advanced Practice Midwife
DX: Z11.3 Encounter for screening for infections with a predominantly sexual mode of transmission (principal)

== ENCOUNTER → 2024-01-16 | Outpatient (CLI) | payer BC ==
[2024-01-16 09:40] LABS: C REACTIVE PROTEIN QUANTITATIV < 0.40 MG/DL (<1.0)
[2024-01-16 09:42] LABS: ALBUMIN 3.5 G/DL (3.2-5.2); ALKALINE PHOSPHATASE 46 U/L (46-116); ALT/SGPT 15 U/L (7.0-40); AST/SGOT 12 U/L (<34); BILIRUBIN,TOTAL 0.4 MG/DL (0.3-1.2); BLOOD UREA NITROGEN 13 MG/DL (9-23); CARBON DIOXIDE LEVEL 31 MMOL/L (20-31); CHLORIDE LEVEL 106 MMOL/L (98-107); CHOLESTEROL LEVEL 195 MG/DL (<200); CHOLESTEROL RISK RATIO 3.03 (<5); CREATININE FOR GFR 0.79 MG/DL (0.55-1.30); GLOMERULAR FILTRATION RATE > 60.0 (>60); GLUCOSE, FASTING 81 MG/DL (60-100); HDL CHOLESTEROL 64.2 MG/DL (>40); IRON (FE) 86 UG/DL (50-170); NON-HDL-C 130.8 MG/DL; PERCENT SATURATION 25.3 % (13.2-45.0); SODIUM LEVEL 140 MMOL/L (136-145); TOTAL IRON BINDING CAPACITY 340 UG/DL (250-425); TOTAL PROTEIN 6.4 G/DL (5.7-8.2); TRIGLYCERIDES LEVEL 74 MG/DL (<150)
[2024-01-16 09:43] LABS: TOTAL 25(OH) VITAMIN D 28.6 NG/ML (20.0-100.0); VITAMIN B12 LEVEL 536 PG/ML (211-911)
[2024-01-16 09:44] LABS: FOLATE 14.5 NG/ML (>5.4); FREE T4 1.11 NG/DL (0.89-1.76); THYROID STIMULATING HORMONE 4.173 uIU/ML (0.55-4.78)
[2024-01-20 13:31] LABS: LYME TOTAL ANTIBODY CIA <= 0.90 Index (<=0.90)
[2024-01-20 14:57] LABS: COPPER PLASMA 95 mcg/dL (70-175)
== END ==
LOC: M LAB 06:51
PROVIDERS: ATTEND Family Medicine
DX: E03.9 Hypothyroidism, unspecified (principal); E55.9 Vitamin D deficiency, unspecified; R53.83 Other fatigue; M05.70 Rheumatoid arthritis with rheumatoid factor of unspecified site without organ or systems involvement; Z13.220 Encounter for screening for lipoid disorders; Z13.29 Encounter for screening for other suspected endocrine disorder

== ENCOUNTER → 2024-03-31 | Outpatient (CLI) | payer BC ==
[2024-03-31 11:26] LABS: BASO % 0.8 % (0.0-1.0); EOS # 0.1 10^3/uL (0.0-0.5); EOS % 1.5 % (0.0-3.0); HEMATOCRIT 38.9 % (36.0-47.0); HEMOGLOBIN 12.7 g/dl (12.0-15.5); LYMPH # 1.5 10^3/uL (1.5-5.0); MEAN CORPUSCULAR HEMOGLOBIN 29.7 pg (27.0-33.0); MEAN CORPUSCULAR HGB CONC 32.6 g/dl (32.0-36.5); MEAN CORPUSCULAR VOLUME 91.1 fl (80.0-96.0); MONO # 0.4 10^3/uL (0.0-0.8); MONO % 7.1 % (2.0-8.0); NEUTROPHILS # 3.2 10^3/uL (1.5-8.5); NEUTROPHILS % 61.2 % (36.0-66.0); PLATELET COUNT, AUTOMATED 258 10^3/uL (150-450); RED BLOOD COUNT 4.27 10^6/uL (4.00-5.40); WHITE BLOOD COUNT 5.2 10^3/uL (4.0-10.0)
[2024-03-31 11:59] LABS: C REACTIVE PROTEIN QUANTITATIV < 0.50 MG/DL (<1.0); CPK CREATINE PHOSPHOKINASE 245 U/L (34-145)
[2024-03-31 12:00] LABS: ALBUMIN 3.7 G/DL (3.2-5.2); ALKALINE PHOSPHATASE 46 U/L (35-104); ALT/SGPT 21 U/L (7.0-40); AST/SGOT 19 U/L (<34); BILIRUBIN,TOTAL 0.3 MG/DL (0.3-1.2); BLOOD UREA NITROGEN 12 MG/DL (9-23); CALCIUM LEVEL 9.6 MG/DL (8.5-10.1); CARBON DIOXIDE LEVEL 31 MMOL/L (20-31); CHLORIDE LEVEL 104 MMOL/L (98-107); GLOMERULAR FILTRATION RATE > 60.0 (>60); GLUCOSE, FASTING 94 MG/DL (60-100); POTASSIUM SERUM 4.5 MMOL/L (3.5-5.1); SODIUM LEVEL 142 MMOL/L (136-145); TOTAL PROTEIN 7.2 G/DL (5.7-8.2)
== END ==
LOC: M LAB 11:02
PROVIDERS: ATTEND Internal Medicine Rheumatology
DX: M35.00 Sjogren syndrome, unspecified (principal)

== ENCOUNTER → 2024-06-26 | Outpatient (CLI) | payer BC ==
[2024-06-26 07:57] LABS: APPEARANCE, URINE CLEAR (CLEAR); BACTERIA, URINE AUTO NEGATIVE (NEGATIVE); BILIRUBIN, URINE AUTO NEGATIVE (NEGATIVE); BLOOD, URINE BLOOD NEGATIVE (NEGATIVE); COLOR, URINE STRAW (YELLOW); GLUCOSE, URINE (UA) AUTO NEGATIVE (NEGATIVE); KETONE, URINE AUTO NEGATIVE (NEGATIVE); LEUKOCYTE ESTERASE, URINE AUTO NEGATIVE (NEGATIVE); MUCUS, URINE SMALL (NEGATIVE); NITRITE, URINE AUTO NEGATIVE (NEGATIVE); PROTEIN, URINE AUTO NEGATIVE (NEGATIVE); RBC, URINE AUTO 0 /HPF (0-3); SPECIFIC GRAVITY URINE AUTO 1.013 (1.002-1.035); SQUAMOUS EPITHELIAL CELL UR AU 2 /HPF (0-6); UROBILINOGEN, URINE AUTO 0.2 mg/dL (0.0-2.0); WBC, URINE AUTO 0 /HPF (0-3)
[2024-06-26 08:02] LABS: BASO % 0.2 % (0.0-1.0); EOS # 0.1 10^3/uL (0.0-0.5); EOS % 2.7 % (0.0-3.0); HEMATOCRIT 36.5 % (36.0-47.0); HEMOGLOBIN 12.1 g/dl (12.0-15.5); LYMPH # 1.1 10^3/uL (1.5-5.0); LYMPH % 26.3 % (24.0-44.0); MEAN CORPUSCULAR HEMOGLOBIN 30.6 pg (27.0-33.0); MEAN CORPUSCULAR HGB CONC 33.2 g/dl (32.0-36.5); MEAN CORPUSCULAR VOLUME 92.2 fl (80.0-96.0); MONO # 0.3 10^3/uL (0.0-0.8); MONO % 6.5 % (2.0-8.0); NEUTROPHILS # 2.6 10^3/uL (1.5-8.5); NEUTROPHILS % 63.8 % (36.0-66.0); PLATELET COUNT, AUTOMATED 203 10^3/uL (150-450); RED BLOOD COUNT 3.96 10^6/uL (4.00-5.40); WHITE BLOOD COUNT 4.1 10^3/uL (4.0-10.0)
[2024-06-26 08:22] LABS: TOTAL PROTEIN,RANDOM URINE 12.4 MG/DL (0.0-14.0)
[2024-06-26 08:27] LABS: CREATININE,RANDOM URINE 69.2 MG/DL
[2024-06-26 08:28] LABS: LDH LACTATE DEHYDROGENASE 144 U/L (120-246)
[2024-06-26 08:29] LABS: ALBUMIN 3.5 G/DL (3.2-5.2); ALKALINE PHOSPHATASE 37 U/L (35-104); ALT/SGPT 15 U/L (7.0-40); AST/SGOT 14 U/L (<34); BILIRUBIN,TOTAL 0.3 MG/DL (0.3-1.2); BLOOD UREA NITROGEN 13 MG/DL (9-23); C REACTIVE PROTEIN QUANTITATIV < 0.50 MG/DL (<1.0); CALCIUM LEVEL 8.6 MG/DL (8.5-10.1); CARBON DIOXIDE LEVEL 29 MMOL/L (20-31); CHLORIDE LEVEL 107 MMOL/L (98-107); CPK CREATINE PHOSPHOKINASE 150 U/L (34-145); CREATININE FOR GFR 0.72 MG/DL (0.55-1.30); GLOMERULAR FILTRATION RATE > 60.0 (>60); GLUCOSE, FASTING 83 MG/DL (60-100); POTASSIUM SERUM 4.1 MMOL/L (3.5-5.1); SODIUM LEVEL 141 MMOL/L (136-145); TOTAL PROTEIN 6.4 G/DL (5.7-8.2)
[2024-06-26 08:30] LABS: COMPLEMENT C3 89.7 MG/DL (84.0-160.0); COMPLEMENT C4 13.8 MG/DL (12-36)
[2024-06-26 08:35] LABS: ERYTHROCYTE SEDIMENTATION RATE 6 mm/hr (0-20)
[2024-06-29 16:52] LABS: ALDOLASE 3.2 U/L (< OR = 8.1)
[2024-06-30 02:52] LABS: COMPLEMENT TOTAL (CH50) 41 U/mL (31-60)
== END ==
LOC: M LAB 07:14
PROVIDERS: ATTEND Internal Medicine Rheumatology
DX: M35.00 Sjogren syndrome, unspecified (principal); R22.2 Localized swelling, mass and lump, trunk; Z79.899 Other long term (current) drug therapy; Z87.39 Personal history of other diseases of the musculoskeletal system and connective tissue

== ENCOUNTER → 2024-12-18 | Outpatient (CLI) | payer BC ==
[2024-12-18 08:23] LABS: CORTISOL AM 12.6 UG/DL (4.3-22.4)
[2024-12-18 08:26] LABS: ALT/SGPT 16 U/L (7.0-40); AST/SGOT 18 U/L (<34); CALCIUM LEVEL 8.5 MG/DL (8.5-10.1); CARBON DIOXIDE LEVEL 28 MMOL/L (20-31); CHLORIDE LEVEL 105 MMOL/L (98-107); CREATININE FOR GFR 0.84 MG/DL (0.55-1.30); GLOMERULAR FILTRATION RATE 90.0 (>58); IRON (FE) 55 UG/DL (50-170); PERCENT SATURATION 17.4 % (13.2-45.0); POTASSIUM SERUM 4.0 MMOL/L (3.5-5.1); SODIUM LEVEL 138 MMOL/L (136-145); TOTAL 25(OH) VITAMIN D 52.9 NG/ML (20.0-100.0)
[2024-12-18 08:28] LABS: FREE T4 0.93 NG/DL (0.89-1.76); VITAMIN B12 LEVEL 502 PG/ML (211-911)
[2024-12-18 08:31] LABS: THYROID PEROXIDASE ANTIBODY < 28.0 U/ML (<60.0)
[2024-12-18 13:58] LABS: BASO # 0.0 10^3/uL (0.0-0.2); BASO % 0.6 % (0.0-1.0); EOS # 0.3 10^3/uL (0.0-0.5); EOS % 6.1 % (0.0-3.0); LYMPH # 1.0 10^3/uL (1.5-5.0); LYMPH % 18.6 % (24.0-44.0); MONO # 0.4 10^3/uL (0.0-0.8); MONO % 7.5 % (2.0-8.0); NEUTROPHILS # 3.5 10^3/uL (1.5-8.5); NEUTROPHILS % 67.0 % (36.0-66.0); PLATELET COUNT, AUTOMATED 215 10^3/uL (150-450)
[2024-12-18 14:36] LABS: ESTIMATED AVERAGE GLUCOSE 108.0 MG/DL (60-110)
[2024-12-21 10:08] LABS: INSULIN LEVEL 3.6 uIU/mL (<=18.4)
[2024-12-24 02:34] LABS: MTHFR DNA ANALYSIS POSITIVE
== END ==
LOC: M LAB 06:30
PROVIDERS: ATTEND Family Medicine
DX: E03.9 Hypothyroidism, unspecified (principal); D47.Z2 Castleman disease; E55.9 Vitamin D deficiency, unspecified; M35.00 Sjogren syndrome, unspecified; R53.83 Other fatigue

== ENCOUNTER → 2025-01-01 | Outpatient (REF) | payer BC ==
[2025-01-01 19:03] LABS: Trichomonas vaginalis (AMP) NOT DETECTED (NEGATIVE)
[2025-01-01 19:26] LABS: GC DNA AMPLIFICATION NEGATIVE (NEGATIVE)
[2025-01-05 16:08] LABS: HPV APTIMA Not Detected (Not Detected)
== END ==
LOC: M PLALAB 15:38
PROVIDERS: ATTEND Advanced Practice Midwife
DX: Z12.4 Encounter for screening for malignant neoplasm of cervix (principal); Z11.3 Encounter for screening for infections with a predominantly sexual mode of transmission
CPT/HCPCS: 87624; 87661; 87810; 87850; G0123

== ENCOUNTER → 2025-01-15 | Outpatient (CLI) | payer BC ==
[2025-01-15 09:10] LABS: HIV 1&2 SCREEN NEGATIVE (NEGATIVE)
[2025-01-15 09:19] LABS: HEPATITIS C VIRUS ABY INDEX 0.03 INDEX (<0.8)
== END ==
LOC: M LAB 06:33
PROVIDERS: ATTEND Advanced Practice Midwife
DX: Z11.3 Encounter for screening for infections with a predominantly sexual mode of transmission (principal)

== ENCOUNTER → 2025-01-15 | Outpatient (CLI) | payer BC ==
[2025-01-15 08:06] LABS: APPEARANCE, URINE CLEAR (CLEAR); BACTERIA, URINE AUTO NEGATIVE (NEGATIVE); BILIRUBIN, URINE AUTO NEGATIVE (NEGATIVE); BLOOD, URINE BLOOD NEGATIVE (NEGATIVE); GLUCOSE, URINE (UA) AUTO NEGATIVE (NEGATIVE); KETONE, URINE AUTO NEGATIVE (NEGATIVE); LEUKOCYTE ESTERASE, URINE AUTO NEGATIVE (NEGATIVE); MUCUS, URINE SMALL (NEGATIVE); NITRITE, URINE AUTO NEGATIVE (NEGATIVE); PROTEIN, URINE AUTO NEGATIVE (NEGATIVE); RBC, URINE AUTO 0 /HPF (0-3); SPECIFIC GRAVITY URINE AUTO 1.024 (1.002-1.035); SQUAMOUS EPITHELIAL CELL UR AU 2 /HPF (0-6); UROBILINOGEN, URINE AUTO 0.2 mg/dL (0.0-2.0); WBC, URINE AUTO 1 /HPF (0-3)
[2025-01-15 08:17] LABS: BASO # 0.0 10^3/uL (0.0-0.2); BASO % 0.7 % (0.0-1.0); EOS # 0.2 10^3/uL (0.0-0.5); EOS % 5.3 % (0.0-3.0); LYMPH # 1.1 10^3/uL (1.5-5.0); LYMPH % 24.4 % (24.0-44.0); MONO # 0.3 10^3/uL (0.0-0.8); MONO % 6.7 % (2.0-8.0); NEUTROPHILS # 2.7 10^3/uL (1.5-8.5); NEUTROPHILS % 62.4 % (36.0-66.0); PLATELET COUNT, AUTOMATED 227 10^3/uL (150-450)
[2025-01-15 08:24] LABS: TOTAL PROTEIN,RANDOM URINE 12.3 MG/DL (0.0-14.0)
[2025-01-15 08:42] LABS: C REACTIVE PROTEIN QUANTITATIV < 0.50 MG/DL (<1.0); LDH LACTATE DEHYDROGENASE 161 U/L (120-246)
[2025-01-15 08:44] LABS: ALT/SGPT 16 U/L (7.0-40); AST/SGOT 18 U/L (<34); CALCIUM LEVEL 8.9 MG/DL (8.5-10.1); CARBON DIOXIDE LEVEL 27 MMOL/L (20-31); CHLORIDE LEVEL 105 MMOL/L (98-107); COMPLEMENT C4 19.1 MG/DL (12-36); CPK CREATINE PHOSPHOKINASE 154 U/L (34-145); CREATININE FOR GFR 0.86 MG/DL (0.55-1.30); GLOMERULAR FILTRATION RATE 87.5 (>58); POTASSIUM SERUM 4.3 MMOL/L (3.5-5.1); SODIUM LEVEL 142 MMOL/L (136-145)
[2025-01-18 17:14] LABS: ALDOLASE 4.0 U/L (< OR = 8.1)
[2025-01-18 23:08] LABS: COMPLEMENT TOTAL (CH50) 42 U/mL (31-60)
[2025-01-20 10:13] LABS: ANTI DS-DNA AB Negative (Negative)
== END ==
LOC: M LAB 06:34
PROVIDERS: ATTEND Internal Medicine Rheumatology
DX: M35.00 Sjogren syndrome, unspecified (principal); Z11.3 Encounter for screening for infections with a predominantly sexual mode of transmission; R22.2 Localized swelling, mass and lump, trunk; Z79.899 Other long term (current) drug therapy; Z87.39 Personal history of other diseases of the musculoskeletal system and connective tissue

== ENCOUNTER → 2025-03-08 | Outpatient (REF) | payer BC | LOC: M LAB REF 15:27 | PROVIDERS: ATTEND Surgery | DX: D23.5 Other benign neoplasm of skin of trunk (principal) ==